=== PATIENT | female | born 1940 | race Caucasian/White ===

== ENCOUNTER 2016-12-21 18:36 | Emergency (ER) | payer MEDICARE, BC ==
[2016-12-21] MEDS ORDERED: NS 0.9% 1000 ML* 1,000 ML IV ONE (19:57)
--- NOTE | 2016-12-21 20:52 | ED ---
Aby Sanderson Erika, scribed for Claude Delarosa MD on 12/21/16 at 2052 . Complex/Multi-Sys Presentation - HPI Summary HPI Summary: Patient is a 76-year-old female presenting to the ED with a CC of weakness. Patient tried to walk up the steps to [place] today, but could not walk all the way to the top due to weakness and increased SOB. Patient was found lying at the top of the stairs, unable to help herself up, and unable to walk once EMS helped her up. Per family, pt has since been lightheaded when she stands up. Pt denies any pain currently. She has a Hx lung CA with lobectomy, and has had chronic SOB since then - pt is on 3L home O2 only at night. Family also notes pt has had abnormal gait since a fall 2 years ago. - History Of Current Complaint Chief Complaint: EDWeakness Time Seen by Provider: 12/21/16 19:52 Hx Obtained From: Patient, Family/Manager Software Development Onset/Duration: Sudden Onset, Lasting Hours, Still Present Timing: Constant Severity Currently: Moderate Aggravating Factor(s): Exertion Associated Signs And Symptoms: Positive: Weakness, SOB, Other - Lightheadedness. Negative: Abdominal Pain, Back Pain - Allergies/Home Medications Allergies/Adverse Reactions: Allergies Allergy/AdvReac Type Severity Reaction Status Date / Time No Known Allergies Allergy Verified 11/25/15 10:53 PMH/Surg Hx/FS Hx/Imm Hx Endocrine/Hematology History: Denies: Hx Diabetes Cardiovascular History: Denies: Hx Hypertension, Hx Pacemaker/ICD Respiratory History: Reports: Other Respiratory Problems/Disorders - lung ca Sensory History: Denies: Hx Hearing Aid Psychiatric History: Denies: Hx Panic Disorder - Cancer History Cancer Type, Location and Year: lung ca Hx Chemotherapy: No Hx Radiation Therapy: No - Surgical History Surgery Procedure, Year, and Place: lobectomy 2004-right per previous report Infectious Disease History: No Infectious Disease History: Denies: Traveled Outside the [place] in Last 30 Days - Family History Known Family History: Positive: Diabetes, Other - Lymphoma - Social History Alcohol Use: None Hx Substance Use: No Substance Use Type: Reports: None Hx Tobacco Use: Yes Smoking Status (MU): Former Smoker Review of Systems Positive: Shortness Of Breath Musculoskeletal: Other - abnormal gait - baseline Negative: Arthralgia, Myalgia Neurological: Other - lightheadedness Positive: Weakness All Other Systems Reviewed And Are Negative: Yes Physical Exam Triage Information Reviewed: Yes Vital Signs On Initial Exam: Initial Vitals Temp Pulse Resp Pulse Ox 99.2 F 82 16 100 12/21/16 19:14 12/21/16 19:14 12/21/16 19:14 12/21/16 19:14 Vital Signs Reviewed: Yes Appearance: Positive: No Pain Distress, Thin Skin: Positive: Warm Head/Face: Positive: Normal Head/Face Inspection Eyes: Positive: MIMI ENT: Positive: Hearing grossly normal Neck: Positive: Supple Respiratory/Lung Sounds: Positive: Clear to Auscultation, Breath Sounds Present Cardiovascular: Positive: Normal, RRR Abdomen Description: Positive: Nontender, No Organomegaly, Soft Bowel Sounds: Positive: Present Musculoskeletal: Positive: Strength/ROM Intact Neurological: Positive: Alert, Oriented to Person Place, Time Psychiatric: Positive: Affect/Mood Appropriate Diagnostics - Vital Signs Vital Signs Temp Pulse Resp BP Pulse Ox 12/21/16 19:19 99.2 F 82 16 119/64 100 12/21/16 19:14 99.2 F 82 16 100 - Laboratory Result Diagrams: 12/21/16 20:46 12/21/16 20:46 Lab Statement: Any lab studies that have been ordered have been reviewed, and results considered in the medical decision making process. - CT CT A/P W/ CT Interpretation: Positive (See Comments) - FINDINGS: The gallbladder is distended and there are small gallstones. The biliary tree is also dilated. I cannot find an obstructing stone or lesion. MCRP is more sensitive for evaluation of obstructing stones or lesions in the biliary tree. There is also slight mural thickening and enhancement of the common bile dict. This can be seen in cholangitis. The liver is normal. Normal spleen. Normal pancreas. Normal adrenal glands. Normal kidneys. Urinary tract in urinary bladder. No bowel obstruction. Sigmoid diverticulosis. No diverticulitis or colitis. Normal appendix. There is a compression fracture of the L2 vertebral body. This was present back in December 2014. CT Interpretation Completed By: Radiologist - IMAGING MATERIAL CONTROLLER - EKG 21:00 Cardiac Rate: NL - at 82 bpm EKG Rhythm: Sinus Rhythm EKG Interpretation: Incomplete RBBB Re-Evaluation - Re-Evaluation First Eval Re-Evaluation Time: 21:40 Comment: Updated patient and family on lab results and need for CT A/P Second Eval Re-Evaluation Time: 01:00 Comment: Discussed CT results with patient and family Complex Multi-Symp Course/Dx Assessment/Plan: A 76 y/o F presents to the ED with a CC of weakness while walking up stairs. EKG shows NSR with an incomplete RBBB. Lab work revealed elevated liver enzymes, so CT A/P W/ was ordered. CT A/P not concerning for acute findings. Results discussed with patient. Family provided with a copy of labs. Patient will be discharged home with follow up from her PCP. - Diagnoses Provider Diagnoses: Weakness Discharge - Discharge Plan Condition: Stable Disposition: HOME Patient Education Materials: Weakness (ED) Referrals: Juan Jose Sutton MD [Primary Care Provider] - 2 Days Additional Instructions: Please follow up with your PCP. The documentation as recorded by the Aby hughes Erika accurately reflects the service I personally performed and the decisions made by me, Claude Delarosa MD.
[2016-12-21 20:58] LABS: Hematocrit 39 % (35-47); Mean Corpuscular HGB Conc 34 g/dl (31-36); Mean Corpuscular Hemoglobin 30 pg (27-31); Mean Corpuscular Volume 89 fL (80-97); Mean Platelet Volume 8 um3 (7.4-10.4); Red Blood Count 4.34 10^6/ul (4.0-5.4); Red Cell Distribution Width 14 % (10.5-15); White Blood Count 11.7 10^3/ul (3.5-10.8)
[2016-12-21 21:07] LABS: Urine Bilirubin Negative (Negative); Urine Glucose Negative (Negative); Urine Nitrite Negative (Negative)
[2016-12-21 21:14] LABS: Albumin 3.7 g/dL (3.2-5.2); BUN/Creatinine Ratio 26.7 (8-20); Calcium 9.2 mg/dL (8.6-10.3); EGFR African American 124.7 (>60); EGFR Non-African American 96.9 (>60); Globulin 3.1 g/dL (2-4); Potassium 3.7 mmol/L (3.5-5.0); Total Bilirubin 2.3 mg/dL (0.2-1.0); Total Protein 6.8 g/dL (6.4-8.9)
[2016-12-21 21:16] LABS: Troponin I 0.03 ng/mL (<0.04)
[2016-12-21 21:51] LABS: TSH (Thyroid Stimulating Horm) 0.65 mcIU/mL (0.34-5.60)
[2016-12-21] MEDS ORDERED: Iohexol 300* (CONTRAST) 10 ML SDV IV ONE (23:20)
[2016-12-22 01:22] VITALS: BP 154/70
--- NOTE | 2016-12-22 07:52 | RAD ---
CLINICAL HISTORY: Pain, elevated LFTs, history of lung cancer COMPARISON: October 26, 2008, CT of the chest dated November 25, 2015 TECHNIQUE: Multiple contiguous axial CT scans were obtained of the abdomen and pelvis after the administration of intravenous contrast. Coronal and sagittal multiplanar reformations are submitted for review. Oral contrast was administered. Delayed images were obtained through the abdomen and pelvis. FINDINGS: LUNG BASES: There is fat-containing Bochdalek hernia on the left LIVER: The liver is normal in shape, size, contour, and attenuation. BILE DUCTS: There is intrahepatic and extrahepatic biliary dilatation. The common duct measures up to 1.3 cm in caliber. This is developed from the previous examination. GALLBLADDER: Small gallstones are noted without pericholecystic inflammatory change. PANCREAS: There is noted above, there is dilatation of the common duct. The pancreatic duct is normal. There is no appreciable pancreatic mass SPLEEN: Normal in size and appearance. UPPER GI TRACT: Evaluation of the gastrointestinal tract is limited by incomplete gastric distention. The upper GI tract is unremarkable. SMALL BOWEL AND MESENTERY: There is mild distention of the small bowel loops without dilatation. Oral contrast reaches the colon. COLON: There are multiple diverticula of the sigmoid colon. There is no pericolonic inflammatory change. ADRENALS: There is a 0.7 cm nodule of the right adrenal gland. This can be identified in retrospect on the 2008 examination and is stable, consistent with a benign process KIDNEYS: The kidneys are normal in shape, size, contour, and axis. There is no hydronephrosis or nephrolithiasis. BLADDER: The bladder is smooth in contour. PELVIC ORGANS: The uterus and adnexa are grossly normal for technique. AORTA: There is calcific atherosclerotic disease of the abdominal aorta and its branches, without aneurysmal dilatation IVC: Unremarkable LYMPH NODES: There is no lymphadenopathy by size criteria. ABDOMINAL WALL: There are small fat-containing inguinal hernias bilaterally. BONES AND SOFT TISSUES: There is a scoliotic curvature of the spine. There is diffuse osteopenia. There is a compression deformity of L2 with minimal osseous retropulsion. This can be identified on the December 13, 2015 examination and is stable OTHER: None IMPRESSION: 1. INTRAHEPATIC AND EXTRAHEPATIC BILIARY DILATATION. RECOMMEND CONSIDERATION OF DEDICATED IMAGING OF THE BILIARY SYSTEM. 2. SMALL GALLSTONES. 3. DIVERTICULOSIS.
== END 2016-12-22 01:19 | disposition home or self-care (01) ==
LOC: ED 18:36
DX: R53.1 Weakness (principal); R42 Dizziness and giddiness; R06.02 Shortness of breath; Z87.891 Personal history of nicotine dependence
CPT/HCPCS: 36415; 74177; 80053; 81003; 83605; 83735; 83880; 84443; 84484; 85025; 93005; 99282; Q9967

== ENCOUNTER 2018-06-01 08:08 | Emergency (ER) | payer MEDICARE, BC ==
--- NOTE | 2018-06-01 08:52 | ED ---
Lower Extremity - HPI Summary HPI Summary: Patient is a 78-year-old female who presents emergency department for left upper leg pain 3 days. Patient lives at home with her . She reportedly has a history of dementia that is recently started and is being tested for Alzheimer's. Patient recently started Zoloft. She otherwise has no past medical history and is not anticoagulated. Patient states she was in the living room 3 days ago when she last her balance and fell injuring her left upper leg. Patient denies head injury or loss of consciousness. She denies headache, neck pain, chest pain, shortness of breath, abdominal pain, recent illness, vomiting, diarrhea. Patient does have a walker at home but typically ambulates by herself. Patient has been able to walk with pain to left upper leg. She denies numbness ,tingling or weakness. Symptoms are [id number]-soxpeopv in severity. Walking makes symptoms worse. Rest makes symptoms better. Patient states she took 2 Tylenol this morning and her symptoms her pain is improving. - History of Current Complaint Chief Complaint: EDExtremityLower Stated Complaint: UNABLE TO AMB WEAKNESS LF LEG Time Seen by Provider: 06/01/18 08:18 Hx Obtained From: Patient Pain Intensity: 0 - Allergies/Home Medications Allergies/Adverse Reactions: Allergies Allergy/AdvReac Type Severity Reaction Status Date / Time No Known Allergies Allergy Verified 06/01/18 08:32 Home Medications: Home Medications Sertraline* [Zoloft*] 25 mg PO DAILY 06/01/18 [History Confirmed 06/01/18] PMH/Surg Hx/FS Hx/Imm Hx Previously Healthy: Yes Endocrine/Hematology History: Denies: Hx Diabetes Cardiovascular History: Denies: Hx Hypertension, Hx Pacemaker/ICD Respiratory History: Reports: Other Respiratory Problems/Disorders - lung ca History: Denies: Hx Renal Disease Sensory History: Denies: Hx Hearing Aid Psychiatric History: Denies: Hx Panic Disorder - Cancer History Cancer Type, Location and Year: lung ca Hx Chemotherapy: No Hx Radiation Therapy: No - Surgical History Surgery Procedure, Year, and Place: lobectomy 2004-right per previous report - Immunization History Immunizations Up to Date: Yes Infectious Disease History: No Infectious Disease History: Denies: Traveled Outside the US in Last 30 Days - Family History Known Family History: Positive: Diabetes, Other - Lymphoma - Social History Occupation: Retired Lives: With Family Alcohol Use: Occasionally Hx Substance Use: No Substance Use Type: Reports: None Hx Tobacco Use: Yes Smoking Status (MU): Former Smoker Review of Systems Constitutional: Negative Negative: Fever, Chills Eyes: Negative ENT: Negative Cardiovascular: Negative Negative: Palpitations, Chest Pain Respiratory: Negative Negative: Shortness Of Breath, Cough Gastrointestinal: Negative Negative: Abdominal Pain, Vomiting, Diarrhea Genitourinary: Negative Positive: Other - left leg pain Skin: Negative Neurological: Negative Negative: Headache, Weakness, Paresthesia, Numbness All Other Systems Reviewed And Are Negative: Yes Physical Exam Triage Information Reviewed: Yes Vital Signs On Initial Exam: Initial Vitals Temp Pulse Resp BP Pulse Ox 97.6 F 86 18 120/75 96 06/01/18 08:25 06/01/18 08:25 06/01/18 08:25 06/01/18 08:25 06/01/18 08:25 Vital Signs Reviewed: Yes Appearance: Positive: Well-Appearing - Pt. sitting up in bed in NAD. Pleasant. Answers questions appropriately. Skin: Positive: Warm, Dry Head/Face: Positive: Other - Ecchymosis noted to left temporal area. No facial tenderness. Eyes: Positive: Normal, EOMI, MIMI Neck: Positive: Supple, Nontender Respiratory/Lung Sounds: Positive: Clear to Auscultation, Breath Sounds Present Cardiovascular: Positive: Normal, RRR Abdomen Description: Positive: Nontender, Soft Musculoskeletal: Positive: Other - No midline tenderness to spine. Pain on palpation just above right knee. Healing bruising and mild edema noted to medial aspect of right knee. 5/5 strength in bilateral LEs with good pulses. No sensory deficits. No hip pain with rotation. Neurological: Positive: Normal, Sensory/Motor Intact, Alert, Oriented to Person Place, Time, CN Intact II-III, Facial Symmetry, Speech Normal Psychiatric: Positive: Affect/Mood Appropriate - Deo Coma Scale Best Eye Response: 4 - Spontaneous Best Motor Response: 6 - Obeys Commands Best Verbal Response: 5 - Oriented Coma Scale Total: 15 Diagnostics - Vital Signs Vital Signs Temp Pulse Resp BP Pulse Ox 06/01/18 08:25 97.6 F 96 20 120/75 95 - Laboratory Result Diagrams: 06/01/18 09:27 06/01/18 09:27 Lab Statement: Any lab studies that have been ordered have been reviewed, and results considered in the medical decision making process. Lower Extremity Course/Dx - Course Course Of Treatment: Patient presenting for left upper leg pain after a mechanical fall 3 days ago. She denies head injury but she has healing bruising to the left side of her face. Basic labs and imaging ordered. Blood work is unremarkable. CT scan of the brain is negative for acute findings, reading per radiology. Chest and pelvic x-ray negative. Knee x-ray shows a nondisplaced proximal fibular fracture. Patient resides at home with her and is ambulatory with or without a walker. Discussed fracture with Dr. Coffey, orthopedics, in regards to splinting. Alexx reviewed x-ray. She states that patient does not need to be in a splint and can be weightbearing with walker. Results and plan discussed with patient and her . Blood work unremarkable. Patient is very happy to be going home without splinting. Scheduled palpation appointment for the orthopedic clinic on Wednesday at 3:30. Advised ice and elevate. Continue Tylenol for pain as directed. To return to the ER if symptoms change or worsen. Patient has been understand and agree with plan. - Diagnoses Differential Diagnosis/HQI/PQRI: Positive: Bursitis, Dislocation, Fracture ( Closed), Sprain, Strain Provider Diagnoses: Fall, Leg pain Discharge - Sign-Out/Discharge Documenting (check all that apply): Patient Departure - Discharge Plan Condition: Good Disposition: HOME Patient Education Materials: Leg Fracture (ED) Referrals: Juan Jose Sutton MD [Primary Care Provider] - Daja Coffey MD [Medical Doctor] - Additional Instructions: Dr. Coffey will see you in the orthopedic clinic 06/03/18, at 3:30pm Ice and elevate Use walker Tylenol for pain as directed Return to ER if symptoms change or worsen - Billing Disposition and Condition Condition: GOOD Disposition: Home
[2018-06-01 09:37] LABS: ABS Basophils 0 10^3/ul (0-0.2); ABS Eosinophils 0 10^3/ul (0-0.6); ABS Lymphocytes 0.4 10^3/ul (1.0-4.8); ABS Monocytes 0.6 10^3/ul (0-0.8); ABS Neutrophils 5.6 10^3/ul (1.5-7.7); ABS Nucleated RBC 0 10^3/ul; Eosinophil % 0.6 % (0-6); Hematocrit 43 % (35-47); Hemoglobin 14.3 g/dl (12.0-16.0); Lymphocyte % 6.3 % (25-47); Mean Corpuscular HGB Conc 33 g/dl (31-36); Mean Corpuscular Hemoglobin 31 pg (27-31); Mean Corpuscular Volume 92 fL (80-97); Mean Platelet Volume 7.9 fL (7.4-10.4); Nucleated Red Blood Cells % 0; Platelet Count 301 10^3/ul (150-450); Red Blood Count 4.67 10^6/ul (4.00-5.40); Red Cell Distribution Width 14 % (10.5-15); White Blood Count 6.7 10^3/ul (3.5-10.8)
[2018-06-01 09:57] LABS: EGFR Non-African American 98.3 (>60)
[2018-06-01 11:24] VITALS: BP 111/77
== END 2018-06-01 11:23 | disposition home or self-care (01) ==
LOC: ED 08:08
DX: S82.402A Unspecified fracture of shaft of left fibula, initial encounter for closed fracture (principal); W18.30XA Fall on same level, unspecified, initial encounter; Y93.01 Activity, walking, marching and hiking; Y92.008 Other place in unspecified non-institutional (private) residence as the place of occurrence of the external cause; M25.462 Effusion, left knee; M17.12 Unilateral primary osteoarthritis, left knee; Z85.118 Personal history of other malignant neoplasm of bronchus and lung; Z87.891 Personal history of nicotine dependence
CPT/HCPCS: 36415; 70450; 80053; 85025; 99283

== ENCOUNTER 2018-06-20 17:58 | Inpatient (IN) | payer MEDICARE, BC ==
--- OUTSIDE RECORDS SUMMARY | 2018-06-20 18:08 | XMS REPORT ---
:1940 External Reference #:[id number] Author Organization [email or web address] Address [address] [place] [address] [place] [address] Phone [phone] Care Team Providers Name Role Phone Juan Jose Sutton MD Primary Care Physician Unavailable Payers Type Date Identification Numbers Payment Provider Subscriber Medicare Primary Effective: Policy Number: Medicare Sharon Wooten 2004 [id number] PayID: [id number] [address] [place] [address] Medigap Part B Effective: 2008 Policy Number: [facility] Bolivar Wooten [id number] Group Number: [id number] [address] PayID: [id number] [place] [address] Problems Date Description Provider Status Onset: 01/21/2015 Closed fracture of lumbar vertebra Tal Ruby M.D. Active without spinal cord injury Family History Date Family Member(s) Problem(s) Comments General Diabetes Social History Type Date Description Comments Lives With Occupation Retired Occupation [place] ETOH Use Occasionally consumes alcohol Smoking Patient is a former smoker Recreational Drug Use Denies Drug Use Exercise Type/Frequency Does not exercise Allergies, Adverse Reactions, Alerts Date Description Reaction Status Severity Comments 01/21/2015 NKDA active Medications Medication Date Status Form Strength Qnty SIG Indications Ordering Provider Naproxen Active Tablets 375mg 1 by mouth Unknown 00 two times a day as needed Tylenol Extra Active Tablets 500mg 2 by mouth Unknown Strength 00 as needed Hydrocodone-Ac Hx Tablets 5-325mg Midura, etaminophen Elizabeth Ingram MD 01/22/20 15 Medications Administered in Office Medication Date Status Form Strength Qnty SIG Indications Ordering Provider Depomedrol Administered Injection Beatriz 40MG 018 INDER Pete Vital Signs Date Vital Result Comment 06/03/2018 Height 62 inches 5'2" Weight 117.00 lb Heart Rate 62 /min BP Systolic 102 mmHg BP Diastolic 60 mmHg Respiratory Rate 16 /min Pain Level 3 BMI (Body Mass Index) 21.4 kg/m2 01/28/2015 Height 62 inches 5'2" Weight 110.00 lb Heart Rate 69 /min BP Systolic 103 mmHg BP Diastolic 79 mmHg BMI (Body Mass Index) 20.1 kg/m2 01/21/2015 Height 62 inches 5'2" Weight 105.00 lb Heart Rate 72 /min BP Systolic Sitting 120 mmHg BP Diastolic Sitting 78 mmHg Pain Level 2 L leg BMI (Body Mass Index) 19.2 kg/m2 Results Description No Information Procedures Date CPT Code Description Status 06/03/2018 19956 Inject/Drain Joint/Bursa Major W/O US Completed Encounters Type Date Location Provider CPT E/M Dx Office Visit 01/28/2015 9:00a [facility] M.D. 79522 808.8 [facility] 905.1 805.6 733.13 V54.19 Office Visit 01/21/2015 3:30p [facility] Tal Ruby M.D. 35577 805.4 Of [facility] Office Visit 02/25/2009 12:15a [facility], Anne-Marie [place], [address]88 239.1 Hospitalists MJoe Office Visit 02/24/2009 12:30a [facility],panfilo [place], 20942 239.1 Hospitalists MJoe Office Visit 02/23/2009 12:45a [facility],panfilo [place], 53203 239.1 Hospitalists MJoe Office Visit 02/22/2009 12:45a [facility],panfilo [place], 99342 239.1 Hospitalists Cyn Plan of Care Future Appointment(s):06/20/2018 3:30 pm - Daja Coffey M.D. at [facility]09/26/2018 10:15 am - Sina Syed M.D. at [facility]06/03/2018 - Daja Coffey M.D.M17.12 Unilateral primary osteoarthritis, left kneeFollow up:2 yvxlyU69.12 Unilateral primary osteoarthritis, left hipS82.402A Unsp fracture of shaft of left fibula, init for clos fx
--- OUTSIDE RECORDS SUMMARY | 2018-06-20 18:08 | XMS REPORT | Continuity of Care Document ---
:1940 External Reference #:[id number] Author Name Nixon Parsons Care Team Providers Name Role Phone Juan Jose Sutton MD Primary Care Physician Unavailable Payers Type Date Identification Numbers Payment Provider Subscriber Effective: Policy Number: [id number] Medicare Sharon Wooten 2005 PayID: [id number] [address] [place] [address] Effective: 2008 Policy Number: [id number] [facility] Bolivar Wooten Group Number: [id number] [address] PayID: [id number] [place] [address] Advance Directives Description No Information Available Problems Date Description Provider Status Onset: 01/21/2015 Closed fracture of lumbar vertebra Tal Ruby M.D. Active without spinal cord injury Family History Date Family Member(s) Problem(s) Comments General Diabetes Social History Type Date Description Comments Sex Unknown Lives With Occupation Retired Occupation [employer] ETOH Use Occasionally consumes alcohol Tobacco Use Start: Unknown End: Patient is a former smoker Unknown Recreational Drug Use Denies Drug Use Smoking Status Reviewed: 06/20/18 Patient is a former smoker Exercise Type/Frequency Does not exercise Allergies, Adverse Reactions, Alerts Description No Known Drug Allergies Medications Medication Date Status Form Strength Qnty SIG Indications Ordering Provider Naproxen Active Tablets 375mg 1 by mouth Unknown 00 two times a day as needed Tylenol Extra Active Tablets 500mg 2 by mouth Unknown Strength 00 as needed Hydrocodone-Ac Hx Tablets 5-325mg Lesley etaminophen Elizabeth - MD Juan Jose 01/22/20 15 Medications Administered in Office Medication Date Status Form Strength Qnty SIG Indications Ordering Provider Depomedrol Administered Injection Beatriz 40MG 018 INDER Pete Immunizations Description No Information Available Vital Signs Date Vital Result Comment 06/20/2018 4:13pm Height 62 inches 5'2" Weight 110.00 lb Heart Rate 84 /min BP Systolic 108 mmHg BP Diastolic 64 mmHg BMI (Body Mass Index) 20.1 kg/m2 06/03/2018 3:54pm Height 62 inches 5'2" Weight 117.00 lb Heart Rate 62 /min BP Systolic 102 mmHg BP Diastolic 60 mmHg Respiratory Rate 16 /min Pain Level 3 BMI (Body Mass Index) 21.4 kg/m2 01/28/2015 9:18am Height 62 inches 5'2" Weight 110.00 lb Heart Rate 69 /min BP Systolic 103 mmHg BP Diastolic 79 mmHg BMI (Body Mass Index) 20.1 kg/m2 01/21/2015 3:25pm Height 62 inches 5'2" Weight 105.00 lb Heart Rate 72 /min BP Systolic Sitting 120 mmHg BP Diastolic Sitting 78 mmHg Pain Level 2 L leg BMI (Body Mass Index) 19.2 kg/m2 Results Description No Information Available Procedures Date Code Description Status 06/03/2018 13020 Inject/Drain Joint/Bursa Major W/O US Completed Encounters Type Date Location Provider Dx Diagnosis Office Visit 01/28/2015 [facility] Harris M.D. 808.8 FX Pelvis Closed 9:00a Of [facility] Unspec 905.1 FX Spine & Trunk W/O Spinal Cord Lesion Late Effect 805.6 FX Sacrum & Coccyx Closed W/O Spinal Cord Injury 733.13 FX Pathologic Vertebrae V54.19 Aftercare For Healing Traumatic Fracture Of Other Bone Office Visit 01/21/2015 Neurosurgery Tla Ruby, 805.4 FX Lumbar Closed 3:30p Services [facility] Gloria Addison W/O Spinal Cord Injury Office Visit 02/25/2009 [facility], 239.1 Neoplasm 12:15a panfilo Lew M.D. Unspecified Hospitalists Respiratory System Office Visit 02/24/2009 [facility], 239.1 Neoplasm 12:30a panfilo Lew M.D. Unspecified Hospitalists Respiratory System Office Visit 02/23/2009 [facility], 239.1 Neoplasm 12:45a panfilo Lew M.D. Unspecified Hospitalists Respiratory System Office Visit 02/22/2009 [facility], 239.1 Neoplasm 12:45a panfilo Lew M.D. Unspecified Hospitalists Respiratory System Plan of Treatment Future Appointment(s):09/26/2018 10:15 am - Sina Syed M.D. at [facility]
--- NOTE | 2018-06-20 18:25 | ED ---
Lower Extremity - HPI Summary HPI Summary: Pt is a 78 y/o female who presents to the ED c/o left leg pain. She fell and injured her left hip. The XR was initially read as normal. Pt was given a left knee injection by Dr. Coffey, which alleviated the pain. She has been doing physical therapy for the past 2 weeks, and she has been deteriorating as per son. Pt had an appointment with Dr. Coffey today for another injection. Dr. Coffey did repeat xrays and is concerned for left femoral neck fracture, and with pt's inability to ambulate without pain, and her worsening pain. She was sent to the ED by Dr. Coffey for a CT to rule out a hip fracture, and possible admission. Pt has 4-5/10 pain with ambulation. She denies any CP, SOB, COOK, dizziness, fever, or abdominal pain. Pt denies any new fall. - History of Current Complaint Chief Complaint: EDExtremityLower Stated Complaint: LT LEG AND HI PAIN Time Seen by Provider: 06/20/18 18:03 Hx Obtained From: Patient, Family/Radio News Writer - Son, Other: - Dr. Coffey Mechanism Of Injury: Fall From A Standing Position - on 06/01/18, no new fall. Onset of Pain: Immediate Onset/Duration: Still Present - 3 weeks ago Severity Initially: Moderate Severity Currently: Moderate Pain Intensity: 4 Pain Scale Used: 0-10 Numeric Timing: Constant Location: Is Discrete @ - LLE Character Of Pain: Aching Associated Signs And Symptoms: Negative: Fever, Dizziness, Abdominal Pain Aggravating Factor(s): Standing, Ambulation, Weight Bearing Alleviating Factor(s): Nothing Able to Bear Weight: No - not without significant pain, worsening since 06/01/18 - Allergies/Home Medications Allergies/Adverse Reactions: Allergies Allergy/AdvReac Type Severity Reaction Status Date / Time No Known Allergies Allergy Verified 06/01/18 08:32 PMH/Surg Hx/FS Hx/Imm Hx Previously Healthy: No Endocrine/Hematology History: Denies: Hx Diabetes, Hx Thyroid Disease Cardiovascular History: Denies: Hx Hypertension, Hx Pacemaker/ICD Respiratory History: Reports: Hx Lung Cancer History: Denies: Hx Renal Disease Sensory History: Denies: Hx Hearing Aid Psychiatric History: Denies: Hx Panic Disorder - Cancer History Cancer Type, Location and Year: lung ca Hx Chemotherapy: No Hx Radiation Therapy: No - Surgical History Surgery Procedure, Year, and Place: lobectomy 2004-right [facility] Infectious Disease History: No Infectious Disease History: Denies: Traveled Outside the [place] in Last 30 Days - Family History Known Family History: Positive: Diabetes, Other - Lymphoma - Social History Lives: With Family Alcohol Use: Occasionally Hx Substance Use: No Substance Use Type: Reports: None Hx Tobacco Use: Yes Smoking Status (MU): Former Smoker Review of Systems Negative: Fever Negative: Chest Pain Negative: Shortness Of Breath Negative: Abdominal Pain Positive: no symptoms reported Positive: Arthralgia - LLE pain from left knee to left hip, Myalgia - LLE pain Skin: Negative Neurological: Other - NEGATIVE: dizziness Negative: Headache Psychological: Normal All Other Systems Reviewed And Are Negative: Yes Physical Exam - Summary Physical Exam Summary: Appearance: Well-appearing, moderate pain distress, well-nourished Skin: Warm, color reflects adequate perfusion, dry, no bruising noted at left hip or knee Head: Normal Head/Face inspection, atraumatic Eyes: Conjunctiva clear ENT: Normal inspection Neck: Supple, no nodes, no JVD Respiratory: Lungs clear, normal breath sounds, no respiratory distress Cardio: RRR, No murmur, pulses normal, brisk capillary refill Abdomen: Soft, nontender Bowel sounds: Present Musculoskeletal: no calf tenderness, no edema, tenderness to palpation of lateral left hip, no bruising, able to lift left leg off stretcher and bend left knee Psychological: Normal Neuro: Alert, muscle tone normal, no focal deficit Triage Information Reviewed: Yes Vital Signs On Initial Exam: Initial Vitals Temp Pulse Resp BP Pulse Ox 99.9 F 95 16 108/80 93 06/20/18 18:00 06/20/18 18:00 06/20/18 18:00 06/20/18 18:00 06/20/18 18:00 Vital Signs Reviewed: Yes Diagnostics - Vital Signs Vital Signs Temp Pulse Resp BP Pulse Ox 06/20/18 18:00 99.9 F 95 16 108/80 93 - Laboratory Result Diagrams: 06/20/18 18:33 06/20/18 18:33 Lab Statement: Any lab studies that have been ordered have been reviewed, and results considered in the medical decision making process. - CT pelvis CT Interpretation Completed By: ED Physician Summary of CT Findings: left femoral neck fracture - EKG 18:23 Cardiac Rate: NL - 84 bpm EKG Rhythm: Sinus Rhythm ST Segment: Normal Ectopy: None Summary of EKG Findings: An EKG at 18:23 reveals nml AV/IV CT, nml QTc, and nml axis. Re-Evaluation - Re-Evaluation First Eval Re-Evaluation Time: 19:08 Change: Unchanged Comment: Pt advised of unofficial CT reading of left femoral neck fracture. Pt denies pain when lying on stretcher. Declines pain medication. Son and not in room at time that pt is informed of unofficial CT reading. Pt agrees to admission. Lower Extremity Course/Dx - Course Course Of Treatment: Pt is a 78 y/o female who presents to the ED c/o left leg pain. She fell 06/01/18 and injured her left hip. The XR was initially read as normal. She has been doing physical therapy for the past 2 weeks, and she has been deteriorating as per son. Pt had an appointment with Dr. Coffey today for another injection. She was sent here by Dr. Coffey for a CT to rule out a hip fracture, and possible admission. She denies any CP, SOB, COOK, dizziness, fever, or abdominal pain. Pt denies any new fall. A physical exam revealed tenderness to palpation of lateral left hip, no bruising under skin, able to lift left leg off stretcher and bend left knee. An EKG was normal. Labs are unremarkable except for minimally elevated BNP (113) and minimally elevated alk phos (121). Final dx are left hip pain and inability to ambulate due to left hip, left femoral neck fracture. CXR unofficial read by ED MD is NAD. CT left hip and pelvis unofficial read is left femoral neck fracture. Pt will be admitted to hospitalist for medical management, and further care by Dr. Coffey. - Diagnoses Differential Diagnosis/HQI/PQRI: Positive: Contusion, Fracture (Closed), Sprain , Strain Provider Diagnoses: Left hip pain, Inability to ambulate due to left hip, Fracture of femoral neck , left - Physician Notifications Discussed Care Of Patient With: Asia Quintanilla - admit Time Discussed With Above Provider: 19:20 Instructed by Provider To: Admit As Inpatient Discharge - Sign-Out/Discharge Documenting (check all that apply): Patient Departure - admit - Discharge Plan Condition: Stable Disposition: ADMITTED TO [facility] - Billing Disposition and Condition Condition: STABLE Disposition: Admitted to [facility] - Attestation Statements Document Initiated by Neel: Yes Documenting Scribe: Neida Weston Provider For Whom Neel is Documenting (Include Credential): Melonie Hogue MD Scribe Attestation: Neida Sanderson, scribed for Melonie Hogue MD on 06/20/18 at 2129. Scribe Documentation Reviewed: Yes Provider Attestation: The documentation as recorded by the Neida hughes accurately reflects the service I personally performed and the decisions made by me, Melonie Hogue MD
[2018-06-20 18:41] LABS: ABS Basophils 0 10^3/ul (0-0.2); ABS Eosinophils 0.1 10^3/ul (0-0.6); ABS Lymphocytes 0.6 10^3/ul (1.0-4.8); ABS Monocytes 0.6 10^3/ul (0-0.8); ABS Neutrophils 4.7 10^3/ul (1.5-7.7); ABS Nucleated RBC 0 10^3/ul; Eosinophil % 2.3 %; Hematocrit 42 % (35-47); Hemoglobin 14.2 g/dl (12.0-16.0); Lymphocyte % 10.4 %; Mean Corpuscular HGB Conc 34 g/dl (31-36); Mean Corpuscular Hemoglobin 31 pg (27-31); Mean Corpuscular Volume 91 fL (80-97); Nucleated Red Blood Cells % 0; Platelet Count 287 10^3/ul (150-450); Red Blood Count 4.64 10^6/ul (4.00-5.40); Red Cell Distribution Width 13 % (10.5-15); White Blood Count 6.1 10^3/ul (3.5-10.8)
[2018-06-20 18:50] LABS: INR 1.02 (0.77-1.02)
[2018-06-20 18:59] LABS: EGFR Non-African American 96.4 (>60)
--- NOTE | 2018-06-20 19:07 | ED ---
Progress - Progress Note Progress Note: RECEIVED SIGN-OUT FROM DR. RUDOLPH AT [facility] PENDING [facility]AGING Course/Dx - Course Course Of Treatment: Pt is a 78 y/o female who presents to the ED c/o left leg pain. She fell 06/01/18 and injured her left hip. The XR was initially read as normal. She has been doing physical therapy for the past 2 weeks, and she has been deteriorating as per son. Pt had an appointment with Dr. Coffey today for another injection. She was sent here by Dr. Coffey for a CT to rule out a hip fracture, and possible admission. She denies any CP, SOB, COOK, dizziness, fever, or abdominal pain. Pt denies any new fall. A physical exam revealed tenderness to palpation of lateral left hip, no bruising under skin, able to lift left leg off stretcher and bend left knee. An EKG was normal. Final dx are left hip pain and inability to ambulate due to left hip. Pt will be signed out to Dr. Frye pending CXR and CT pelvis. - Diagnoses Provider Diagnoses: Left hip pain, Inability to ambulate due to left hip Discharge - Discharge Plan Referrals: Juan Jose Sutton MD [Primary Care Provider] - - Attestation Statements Document Initiated by Scribe: Yes Documenting Scribe: Malgorzata Luu Provider For Whom Scribe is Documenting (Include Credential): Dr. Bossman Frye MD Scribe Attestation: Kin, Malgorzata Luu, scribed for Dr. Bossman Frye MD on 06/20/18 at 1907.
[2018-06-20] MEDS ORDERED: Ondansetron INJ* 2 MG/ML VIAL IV PRN (20:12)
[2018-06-20] MEDS ORDERED: HYDROcodone/ACETAMIN 5-325 MG* 1 TAB PO PRN (20:12)
[2018-06-20] MEDS ORDERED: Albuterol 2.5 MG/3 ML NEB.SOL* (0.083%) INH PRN (20:16)
[2018-06-20 22:43] LABS: Urine Appearance Cloudy; Urine Blood Negative (Negative); Urine Color Yellow; Urine Ketones Trace (Negative); Urine Protein Negative (Negative); Urine Red Blood Cell Absent (Absent); Urine Specific Gravity 1.016 (1.010-1.030); Urine Urobilinogen Negative (Negative); Urine White Blood Cell 2+(11-20/hpf) (Absent)
[2018-06-20] MEDS: Heparin VIAL(*) 5000 UNITS/ML VIAL (FIVE THOUSAND) SUBCUT SCH (23:38)
--- NOTE | 2018-06-21 00:28 | HP ---
CC: Dr. Sutton; Dr. Coffey * HISTORY AND PHYSICAL: DATE OF ADMISSION: 06/20/18 PRIMARY CARE PROVIDER: Dr. Sutton. MY ATTENDING PHYSICIAN WHILE IN THE HOSPITAL: Asia Quintanilla MD * (report dictated by Wilber Foster NP) CONSULTING ORTHOPEDIST: Dr. Coffey. CHIEF COMPLAINT: 1. Left hip pain. 2. Decreased mobility. HISTORY OF PRESENT ILLNESS: Mrs. Wooten is a 78-year-old female patient who a few weeks ago sustained a mechanical fall in her bathroom. She was evaluated, was doing physical therapy, but they have noticed that over the last several days that she has had a progressive decline in her PT ability and was transferred. She had been having more pain in her hip. She presented to the orthopedic services for evaluation and a CT was obtained today, which did show a left trochanteric fracture. The patient denies having any chest pain or shortness of breath. She states she really does not have a lot of pain in her hip. She just states she has been having decreased limited range of motion and decreased ability to transfer due to pain. She denies having any recent fevers or chills. There has been no abdominal pain. There has been no nausea or vomiting. She denied having any recent dysurias or frequencies. She states that she just again noted that she had been having decreased mobility. She again denied any chest pain or shortness of breath. She states that prior to the fall, she was able to ambulate, to go up and down the stairs with laundry basket with no chest pain. She did get short of breath with this, but she recovered after getting to the top of the stairs. She states that typically she used to go the [employer] 2 or 3 times a week and walk around the store, not get chest pain with this. She states that prior to when she fell 3 weeks ago, she did not faint. It has been so long, she cannot really remember, but she remembers that she lost her balance and had fell mechanically. She did not have any chest pain prior to or after. She was evaluated here today in the ED. It was noted that she had a left trochanteric fracture and because of these findings, we were asked to evaluate for admission. PAST MEDICAL HISTORY: Significant for: 1. Depression. 2. COPD. 3. Lung cancer. PAST SURGICAL HISTORY: She has had lobectomy. HOME MEDICATIONS: Include Zoloft 1 tablet p.o. daily. ALLERGIES TO MEDICATIONS: Include no known drug allergies. FAMILY HISTORY: Both her parent had cancer, her father had lung cancer and her mother had lymphoma. SOCIAL HISTORY: She is a former smoker. She does drink at times 1 to 2 drinks a day, but she has not drink in 3 weeks. Surrogate decision makers are her and her son. REVIEW OF SYSTEMS: There is no documented fever. She denied having any significant weight change. There is no double vision. She denies having any ear discharge. There was no rhinorrhea. There was no sore throat. There was no thyroid enlargement. She denied having any chest pain. There was no orthopnea. There is no nocturnal dyspnea. No nausea, no vomiting. No abdominal pain. No dysuria, no frequency. No seizure, no loss of consciousness. No pruritus and no skin ulcerations. Review of 14 systems completed, all others negative. PHYSICAL EXAMINATION GENERAL: At this time, Mrs. Wooten is a 78-year-old female patient. She is sitting in the ED stretcher. She does not appear to be in any acute distress. She appears to be well nourished and well developed. VITAL SIGNS: Blood pressure 108/80 with a pulse of 95, respirations 16, O2 saturation 93%, temperature 99.9. HEENT: Head: Atraumatic and normocephalic. Eyes: EOMs are intact. Sclerae anicteric, not pale. Throat: Oral mucosa appears to be moist. No oropharyngeal erythema. NECK: Supple. LUNGS: Clear to auscultation bilaterally. No wheezes, rales, rhonchi. HEART: Sounds S1, S2. She had a regular rate and rhythm. No murmurs, rubs, or gallops. ABDOMEN: Soft, flat, nontender. Bowel sounds were present. EXTREMITIES: Pulses were 2+ throughout. Neurovascular checks were intact to the left lower extremity. To me, it did appear to be slightly rotated and shortened, but again neurovascular, she was intact. NEUROLOGIC: She is awake, alert and oriented x3. She had no gross focal deficits. Speech clear. Tongue midline. SKIN: Intact. DIAGNOSTIC STUDIES/LAB DATA: Labs, WBC of 6.1, RBC of 4.64, hemoglobin of 14.2 , hematocrit of 42, platelet count of 287. INR 1.02, PTT of 27.6. The sodium was 140, potassium was 3.8, chloride of 104, bicarb 28, BUN 17, creatinine of 0.60, glucose 100. Calcium 9.8. Total bili 0.6, AST 22, ALT 19, alk phos 122. Albumin of 4.1. She did have imaging here in the ED. Chest x-ray, again awaiting on official read, but when I reviewed this, I do not appreciate any acute infiltrates. It does appear that she is status post lobectomy. She has hyperinflation findings. It looks like this was consistent with COPD. No infiltrates or pulmonary edema is noted. She had an EKG obtained today, which did reveal a normal sinus rhythm with a rate of 84, no ST elevations or T wave inversions. When reviewed to previous EKG, it appears to be appears to be similar. She had a pelvis CT obtained today, impression: Acute traumatic fracture of the left femoral neck, diverticulosis. Old medical records were reviewed. ASSESSMENT AND PLAN: Mrs. Wooten is a 78-year-old female patient coming into the ED after sustaining a mechanical fall 3 weeks ago, now noticing decreased mobility. On evaluation with CT today, it was noted that she had a left hip fracture. She will be admitted under inpatient status for: 1. Left hip fracture. At this point, she is medically optimized for the procedure. Her RCRI is low. She has no risk factors. Her biggest risk is really respiratory mcmanus because of the history of lung cancer and chronic obstructive pulmonary disease, but she is very active prior to this. EKG is stable. Chest x- ray appears to be stable. She is medically optimized. Plan will be to make her n.p.o. after 8 o'clock in the morning and she would be add- on case for Dr. Coffey tomorrow. I will order IV fluids when she is n.p.o. and I have ordered pain management for the patient, neurovascular checks and Dr. Coffey will evaluate. 2. History of lung cancer. Follow up with PCP. 3. Depression. Continue supportive care. 4. History of chronic obstructive pulmonary disease. I did order p.r.n. albuterol for her. 5. DVT prophylaxis. She is high risk. She will be placed on heparin subcu. 6. Code status. She is a full code. 7. Fluids, electrolytes, and nutrition. Again, n.p.o. after 8 o'clock tomorrow morning and then she could have normal saline while she is n.p.o. TIME SPENT: Time spent on the admission was 60 minutes, greater than half the time spent [id number] with the patient obtaining my history and physical; other half time spent going over the plan of care with the patient and implementing plan of care. I did discuss the plan of care with my attending, Dr. Quintanilla; she is in agreement. WILBER FOSTER, APARTMENT MAINTENANCE [id number]/[facility] #: [id number] RUIZ
[2018-06-21] MEDS: NS 0.9% 1000 ML* 1,000 ML IV SCH ×2 (03:54→13:49)
[2018-06-21 05:42] LABS: ABS Basophils 0.1 10^3/ul (0-0.2); ABS Eosinophils 0.2 10^3/ul (0-0.6); ABS Lymphocytes 0.5 10^3/ul (1.0-4.8); ABS Monocytes 0.5 10^3/ul (0-0.8); ABS Neutrophils 3.5 10^3/ul (1.5-7.7); ABS Nucleated RBC 0 10^3/ul; Eosinophil % 3.2 %; Hematocrit 39 % (35-47); Lymphocyte % 10.8 %; Mean Corpuscular HGB Conc 34 g/dl (31-36); Mean Corpuscular Hemoglobin 30 pg (27-31); Mean Corpuscular Volume 90 fL (80-97); Mean Platelet Volume 7.7 fL (7.4-10.4); Nucleated Red Blood Cells % 0.1; Platelet Count 271 10^3/ul (150-450); Red Blood Count 4.31 10^6/ul (4.00-5.40); Red Cell Distribution Width 13 % (10.5-15); White Blood Count 4.7 10^3/ul (3.5-10.8)
[2018-06-21 05:52] LABS: INR 1.07 (0.77-1.02)
[2018-06-21] MEDS: Heparin VIAL(*) 5000 UNITS/ML VIAL (FIVE THOUSAND) SUBCUT SCH ×3 (05:56→23:11)
[2018-06-21 06:08] LABS: EGFR Non-African American 113.8 (>60)
[2018-06-21] MEDS: Sertraline* 25 MG TAB PO SCH (08:32)
--- NOTE | 2018-06-21 11:16 | PN ---
Subjective Date of Service: 06/21/18 Interval History: Pt resting comfortably in bed, NAD. Reports pain is well controlled. Denies shortness of breath, chest pain, headache, dizziness, N/V/D/C, abdominal pain, numbness or tingling in extremities. Objective Active Medications: Acetaminophen (Tylenol Tab*) 650 mg PO Q4H PRN PRN Reason: FEVER/PAIN Hydrocodone Bitart/Acetaminophen (Mcintosh 5-325 Tab*) 1 tab PO Q6H PRN PRN Reason: PAIN Albuterol (Ventolin 2.5 Mg/3 Ml Neb.Kami*) 2.5 mg INH Q2H PRN PRN Reason: SOB/WHEEZING Heparin Sodium (Porcine) (Heparin Vial(*)) 5,000 units SUBCUT Q8HR [facility] Last Admin: 06/21/18 05:56 Dose: Not Given Sodium Chloride (Ns 0.9% 1000 Ml*) 1,000 mls @ 100 mls/hr IV PER RATE [facility] Last Admin: 06/21/18 03:54 Dose: 100 mls/hr Ondansetron HCl (Zofran Inj*) 4 mg IV Q6H PRN PRN Reason: NAUSEA Sertraline HCl (Zoloft*) 25 mg PO QAM [facility] Last Admin: 06/21/18 08:32 Dose: Not Given Vital Signs - 8 hr 06/21/18 06/21/18 06/21/18 03:58 07:33 08:00 Temperature 97.9 F 98.7 F Pulse Rate 76 82 Respiratory 16 16 16 Rate Blood Pressure 143/71 129/72 (mmHg) O2 Sat by Pulse 95 94 Oximetry Oxygen Devices in Use Now: None Eyes: No Scleral Icterus, PERRLA Ears/Nose/Mouth/Throat: NL Teeth, Lips, Gums, Mucous Membranes Moist Neck: NL Appearance and Movements; NL JVP, Trachea Midline Respiratory: Symmetrical Chest Expansion and Respiratory Effort, Clear to Auscultation Cardiovascular: NL Sounds; No Murmurs; No JVD, No Edema Abdominal: NL Sounds; No Tenderness; No Distention Extremities: No Edema, No Clubbing, Cyanosis Skin: No Rash or Ulcers Neurological: Alert and Oriented x 3, NL Muscle Strength and Tone Lines/Tubes/Other Access: Clean, Dry and Intact Peripheral IV Result Diagrams: 06/21/18 05:28 06/21/18 05:28 Assess/Plan/Problems-Billing Assessment: 78 year old female with PMH COPD and lung CA s/p mechanical fall in early May, admitted for repair of L femoral neck fracture with Dr. Coffey. - Patient Problems (1) Hip fracture, left Current Visit: Yes Status: Acute Code(s): S72.002A - FRACTURE OF UNSP PART OF NECK OF LEFT FEMUR, INIT SNOMED Code(s): 530795416 Comment: - Plan for OR today with Dr Coffey - CT with acute traumatic fracture of L femoral neck - Pt reports pain currenlty well controlled. Will add additional agents as needed post-op. (2) COPD (chronic obstructive pulmonary disease) Current Visit: Yes Status: Acute Code(s): J44.9 - CHRONIC OBSTRUCTIVE PULMONARY DISEASE, UNSPECIFIED SNOMED Code(s): 28994881 Comment: - No evidence of acute exacerbation. Continue PRN albuterol and nighly home O2, 3L. (3) Depression Current Visit: Yes Status: Acute Code(s): F32.9 - MAJOR DEPRESSIVE DISORDER , SINGLE EPISODE, UNSPECIFIED SNOMED Code(s): 22168515 Comment: - Continue zoloft (4) DVT prophylaxis Current Visit: Yes Status: Acute Code(s): AWM8506 - SNOMED Code(s): 613984562 Comment: - Heparin SQ (5) Full code status Current Visit: Yes Status: Acute Code(s): Z78.9 - OTHER SPECIFIED HEALTH STATUS SNOMED Code(s): 196019258 Status and Disposition: Inpatient.
[2018-06-21] MEDS: Acetaminophen TAB* 325 MG PO PRN (12:45)
[2018-06-21] MEDS ORDERED: HYDROmorphone INJ1* 1 MG/ML SYRINGE ONE (15:11)
[2018-06-21] MEDS ORDERED: Lidocaine 2% PF * 5 ML VIAL ONE ×2 (15:31→16:43)
[2018-06-21] MEDS ORDERED: Ketorolac INJ* 30 MG/ML 1 ML VIAL ONE (15:31)
[2018-06-21] MEDS ORDERED: Propofol* 10 MG/ML 20 ML BTL ONE ×2 (15:31→17:38)
[2018-06-21] MEDS ORDERED: Ondansetron INJ* 2 MG/ML VIAL ONE (15:31)
[2018-06-21] MEDS ORDERED: Dexamethasone IV* 4 MG/ML 1 ML (4 MG) ONE (15:31)
[2018-06-21] MEDS ORDERED: KETAMINE HCL* 50 MG/ML 10 ML VIAL ONE (15:32)
[2018-06-21] MEDS ORDERED: Midazolam* 1 MG/ML 5 ML VIAL (5 MG) ONE (15:32)
[2018-06-21] MEDS ORDERED: fentaNYL* 50 MCG/ML 2 ML VIAL (100 MCG VIAL) ONE (15:32)
[2018-06-21] MEDS ORDERED: ceFAZolin 2 GM PREMIX in ORs 2 GM/50 ML BAG IVPB ONE (15:36)
[2018-06-21] MEDS ORDERED: Bupivacaine 0.5% SDV PF* 30ML VIAL ONE (16:43)
[2018-06-21] MEDS ORDERED: Levalbuterol 0.63MG/3ML NEB* UNIT OF USE INH PRN (18:09)
[2018-06-21] MEDS ORDERED: Naloxone* 0.4 MG/ML 1 ML VIAL IV PRN (18:09)
[2018-06-21] MEDS ORDERED: Ondansetron INJ* 2 MG/ML VIAL IV PRN (18:09)
[2018-06-21] MEDS ORDERED: fentaNYL* 50 MCG/ML 2 ML VIAL (100 MCG VIAL) IV PRN (18:09)
[2018-06-21] MEDS ORDERED: Phenylephrine INJ* 50 MG in NS 0.9% 250 ML* 245 ML IV PRN (18:09)
[2018-06-21] MEDS ORDERED: oxyCODONE TAB* 5 MG TAB PO PRN (19:25)
[2018-06-22] MEDS ORDERED: Bisacodyl SUPP* 10 MG SUPP PR PRN (00:09)
[2018-06-22] MEDS ORDERED: ceFAZolin 1 GM* X 3 DOSES POST-OP Q8H (AddVan) IVPB SCH ×2 (01:30)
[2018-06-22] MEDS: ceFAZolin 1 GM in Dextrose (*) 1 GM/50 ML BAG IVPB SCH ×3 (01:53→17:27)
--- NOTE | 2018-06-22 05:35 | CONS ---
ORTHOPEDIC CONSULT NOTE: DATE OF CONSULT: 06/21/18 CHIEF COMPLAINT: Left femoral neck fracture with displacement. HISTORY OF PRESENT ILLNESS: Ms. Wooten is a 78-year-old female with multiple falls over the last month. On 05/24/18, she had a fall in her bathroom which was a mechanical fall. She was brought to the emergency room and found to have a proximal fibula fracture. I saw the patient in my office on 06/03/18. She was complaining of left knee pain and had advanced arthritis on radiographs. She was given a knee injection and reports she had five days of fantastic pain relief and was able to walk. At the 06/03/18 appointment, the patient had no hip pain and rotation at the hip did not cause pain. She then presented back to my office on 06/20/18. The patient's son reported that she could hardly stand or walk at all. She once again denied hip pain, reported distal femur and knee pain. Radiographs of the left hip, femur, and knee were obtained, which showed a displaced femoral neck fracture. I sent the patient immediately to the emergency room for CT scan to confirm this fracture. We discussed that she would likely need surgery and they wished for me to be her surgeon. PAST MEDICAL HISTORY: 1. Depression. 2. COPD. 3. Lung cancer. PAST SURGICAL HISTORY: Lobectomy for lung cancer. HOME MEDICATIONS: Zoloft one tablet p.o. daily. ALLERGIES: No known drug allergies. FAMILY HISTORY: Maternal lymphoma, paternal lung cancer. SOCIAL HISTORY: The patient lives with her at home. Normally walks minimal distance with a rolling walker. One to two drinks per day. No tobacco , but has history of tobacco use. Her son and are her surrogate decision makers. REVIEW OF SYSTEMS: Fourteen systems were reviewed with the patient today. Positive for left distal thigh pain, left knee pain, minimal hip pain. Negative for fevers, chills, chest pain, shortness of breath, nausea, vomiting, headache, or dizziness. Otherwise, the patient reports review of systems is negative or not relevant. PHYSICAL EXAM: Vitals: Temperature 97.8, pulse of 84, blood pressure 138/69. General: The patient is a well-nourished female, in no apparent distress. Alert and oriented x3. Pleasant mood and appropriate affect. Gait is not assessed. Balance not assessed. HEENT: Atraumatic, normocephalic. Pupils equal and reactive to light. Heart: S1 and S2. No murmurs, rubs, or gallops. Lungs: Clear to auscultation bilaterally. Abdomen: Soft, nondistended, nontender. Left lower extremity: The patient's skin is intact. No abrasions or open wounds. Some tenderness along the joint line of the knee medially. Has flexion of 70 degrees with minimal pain. Active straight leg raise. Distally 5/5 ankle dorsiflexion and plantar flexion strength. Full sensation to light touch in all nerve distributions and 2+ palpable DP pulse. DIAGNOSTIC STUDIES/LAB DATA: Multiple labs show, from 06/20/18, white blood cells 6.1, hematocrit 42, platelets 287. INR 1.02. Sodium 140, potassium 3.8, chloride 104. BUN and creatinine 17 and 0.6. Alk phos 121. BNP 113. Urinalysis positive for leukocyte esterase, no bacteria, white blood cells 2+. Studies: Multiple x- rays of the hip, femur, and knee show displaced femoral neck fracture with extreme osteopenia. There is advanced arthritis of the hip and knee joints. Pelvis CT from 06/20/18 at approximately 6 p.m. shows an acute traumatic fracture of the left femoral neck. ASSESSMENT AND PLAN: Ms. Wooten is a 78-year-old female with an abnormal presentation of left femoral neck fracture. She has had multiple falls over the last month. First documented fall on 05/24/18 left her with ability to walk , rotate the hip and no hip pain. Over the last week, the patient has become unable to ambulate. New films of the hip show displaced femoral neck fracture. The patient's family would like me to assume surgical care. Today, we discussed the risks and benefits of hemiarthroplasty and total hip arthroplasty. Due to her known baseline arthritis and her wish to be able to walk, we will perform left total hip arthroplasty to fix this fracture. She will be n.p.o. The medical team has optimized her and feels she is clear to proceed to surgery. We discussed the risks of surgery including but not limited to bleeding, infection, damage to nearby structures, continued pain, need for further surgery, intraoperative fracture, nerve palsy, hardware failure or loosening, stroke, heart attack, blood clot, and . She would like to proceed. We will tentatively schedule her for 5 p.m. on 06/21/18, left total hip arthroplasty for fixation of the displaced femoral neck fracture. Thank you for this orthopedic consultation. [id number]/[facility] #: [id number] RUIZ
[2018-06-22 05:46] LABS: ABS Basophils 0 10^3/ul (0-0.2); ABS Eosinophils 0 10^3/ul (0-0.6); ABS Lymphocytes 0.3 10^3/ul (1.0-4.8); ABS Monocytes 0.6 10^3/ul (0-0.8); ABS Neutrophils 6.5 10^3/ul (1.5-7.7); ABS Nucleated RBC 0 10^3/ul; Eosinophil % 0 %; Hematocrit 32 % (35-47); Hemoglobin 10.9 g/dl (12.0-16.0); Lymphocyte % 3.8 %; Mean Corpuscular HGB Conc 34 g/dl (31-36); Mean Corpuscular Hemoglobin 31 pg (27-31); Mean Corpuscular Volume 91 fL (80-97); Nucleated Red Blood Cells % 0; Platelet Count 228 10^3/ul (150-450); Red Blood Count 3.49 10^6/ul (4.00-5.40); Red Cell Distribution Width 13 % (10.5-15); White Blood Count 7.3 10^3/ul (3.5-10.8)
[2018-06-22] MEDS: Heparin VIAL(*) 5000 UNITS/ML VIAL (FIVE THOUSAND) SUBCUT SCH (05:50)
[2018-06-22 06:05] LABS: EGFR Non-African American 127.8 (>60)
[2018-06-22] MEDS: Docusate CAP* 100 MG PO SCH ×2 (08:23→20:11)
[2018-06-22] MEDS: Sertraline* 25 MG TAB PO SCH (08:23)
[2018-06-22] MEDS: NS 0.9% 1000 ML* 1,000 ML IV SCH ×2 (08:25→20:12)
--- NOTE | 2018-06-22 09:06 | PN ---
Subjective Date of Service: 06/22/18 Interval History: Patient resting comfortably in bed after yesterday's surgery. Denies hip pain. Denies shortness of breath, chest pain, dizziness, abdominal pain, numbness or tingling in extremities. Pt has not yet eaten today, but denies nausea/ vomiting. Pt does have E. coli in urine, but denies any urinary symptoms including dysuria, suprapubic pain, flank pain. Objective Active Medications: Acetaminophen (Tylenol Tab*) 650 mg PO Q4H PRN PRN Reason: FEVER/PAIN Last Admin: 06/21/18 12:45 Dose: 650 mg Hydrocodone Bitart/Acetaminophen ([place] 5-325 Tab*) 1 tab PO Q6H PRN PRN Reason: PAIN Albuterol (Ventolin 2.5 Mg/3 Ml Neb.Kami*) 2.5 mg INH Q2H PRN PRN Reason: SOB/WHEEZING Bisacodyl (Dulcolax Supp*) 10 mg ME DAILY PRN PRN Reason: CONSTIPATION Docusate Sodium (Colace Cap*) 100 mg PO BID [facility] Last Admin: 06/22/18 08:23 Dose: 100 mg Heparin Sodium (Porcine) (Heparin Vial(*)) 5,000 units SUBCUT Q8HR [facility] Last Admin: 06/22/18 05:50 Dose: 5,000 units Sodium Chloride (Ns 0.9% 1000 Ml*) 1,000 mls @ 100 mls/hr IV PER RATE [facility] Last Admin: 06/22/18 08:25 Dose: 100 mls/hr Cefazolin Sodium/Dextrose (Kefzol 1 Gm In Dextrose Duplex (*)) 1 gm in 50 mls @ 200 mls/hr IVPB Q8H [facility] Stop: 06/22/18 17:44 Last Admin: 06/22/18 01:53 Dose: 200 mls/hr Lactulose (Lactulose*) 30 ml PO Q6H PRN PRN Reason: CONSTIPATION Ondansetron HCl (Zofran Inj*) 4 mg IV Q6H PRN PRN Reason: NAUSEA Oxycodone HCl (Roxycodone Tab*) 5 mg PO Q4H PRN PRN Reason: PAIN MODERATE TO SEVERE Sertraline HCl (Zoloft*) 25 mg PO QAM [facility] Last Admin: 06/22/18 08:23 Dose: 25 mg Tramadol HCl (Ultram*) 50 mg PO Q6H PRN PRN Reason: PAIN Vital Signs - 8 hr 06/22/18 06/22/18 06/22/18 01:57 01:58 03:55 Temperature 98.0 F 98.1 F Pulse Rate 90 84 Respiratory 16 16 16 Rate Blood Pressure 102/59 99/53 (mmHg) O2 Sat by Pulse 100 100 99 Oximetry 06/22/18 06/22/18 06/22/18 05:51 07:40 08:00 Temperature 98.9 F Pulse Rate 78 Respiratory 16 16 16 Rate Blood Pressure 105/47 (mmHg) O2 Sat by Pulse 100 100 91 Oximetry Oxygen Devices in Use Now: Nasal Cannula Eyes: No Scleral Icterus, PERRLA Ears/Nose/Mouth/Throat: NL Teeth, Lips, Gums, Clear Oropharnyx, Mucous Membranes Moist Neck: NL Appearance and Movements; NL JVP, Trachea Midline Respiratory: Symmetrical Chest Expansion and Respiratory Effort, Clear to Auscultation Cardiovascular: NL Sounds; No Murmurs; No JVD, RRR, No Edema Abdominal: NL Sounds; No Tenderness; No Distention Skin: No Rash or Ulcers Neurological: Alert and Oriented x 3, NL Sensation, NL Muscle Strength and Tone , - - Able to dorsiflex and plantarflex Lines/Tubes/Other Access: Clean, Dry and Intact Peripheral IV Result Diagrams: 06/22/18 05:23 06/22/18 05:24 Microbiology and Other Data: Microbiology 06/20/18 22:30 Urine Culture - Final Urine Escherichia Coli Assess/Plan/Problems-Billing Assessment: 78 year old female with PMH COPD and lung CA s/p mechanical fall in early May, s/p left hip replacement with Dr. Coffey. - Patient Problems (1) Hip fracture, left Current Visit: Yes Status: Acute Code(s): S72.002A - FRACTURE OF UNSP PART OF NECK OF LEFT FEMUR, INIT SNOMED Code(s): 058530240 Comment: - POD 1 s/p left hip replacement with Dr Coffey - CT with acute traumatic fracture of L femoral neck - Pt reports pain currenlty well controlled - Anticoagulated with heparin SQ - Trend H/H - Continue supplimental IVF as BPs have been soft in 90s-100s (2) COPD (chronic obstructive pulmonary disease) Current Visit: Yes Status: Acute Code(s): J44.9 - CHRONIC OBSTRUCTIVE PULMONARY DISEASE, UNSPECIFIED SNOMED Code(s): 36120961 Comment: - No evidence of acute exacerbation. Continue PRN albuterol and nighly home O2, 3L. (3) Asymptomatic bacteriuria Current Visit: Yes Status: Acute Code(s): R82.71 - BACTERIURIA SNOMED Code (s): 673700200 Comment: - Urine culture with moderate amount of E. coli. Pt is asymptomatic, but in light of recent surgery, will treat with ceftriaxone to avoid spread of infection to new hardware. (4) Depression Current Visit: Yes Status: Acute Code(s): F32.9 - MAJOR DEPRESSIVE DISORDER , SINGLE EPISODE, UNSPECIFIED SNOMED Code(s): 35386345 Comment: - Continue zoloft (5) DVT prophylaxis Current Visit: Yes Status: Acute Code(s): POW5722 - SNOMED Code(s): 552132088 Comment: - Heparin SQ (6) Full code status Current Visit: Yes Status: Acute Code(s): Z78.9 - OTHER SPECIFIED HEALTH STATUS SNOMED Code(s): 837902060 Status and Disposition: Inpatient.
--- NOTE | 2018-06-22 11:05 | PN ---
Progress Note - Progress Note Date of Service: 06/22/18 SOAP: Subjective: []Patient seen and examined at bedside. She feels well s/p left total hip replacement. Denies CP, SOB, dizziness, nausea, dysuria. Objective: []General: Well appearing, NAD LLE: Left hip dressing CDI, thigh is soft, df/pf intact, DP2+, sensation intact distally Calves supple and nontender without erythema, edema or palpable cords Assessment: []POD 1 s/p left total hip replacement due to L femoral neck fracture Plan: []WBAT PT/OT ceftriaxone for UTI switched from heparin to lovenox for dvt prophylaxis, required for 30 days PMRU referral in Vital Signs Temp 98.9 F 06/22/18 07:40 Pulse 78 06/22/18 07:40 Resp 16 06/22/18 08:00 BP 105/47 06/22/18 07:40 Pulse Ox 96 06/22/18 10:00 Intake & Output 06/21/18 06/22/18 06/22/18 18:59 06:59 18:59 Intake Total 1044 2300 980 Output Total 300 350 100 Balance 744 1950 880 Intake: IV Fluids 1044 2000 925 LR 2000 NS (0.9%) 1044 925 IVPB 55 ABX - CEFAZOLIN 55 Oral 0 300 Output: Urine 300 200 100 Basurto 150 Laboratory Last Values WBC 7.3 10^3/ul (3.5-10.8) 06/22/18 05:23 RBC 3.49 10^6/ul (4.00-5.40) L 06/22/18 05:23 Hgb 10.9 g/dl (12.0-16.0) L 06/22/18 05:23 Hct 32 % (35-47) L 06/22/18 05:23 MCV 91 fL (80-97) 06/22/18 05:23 MCH 31 pg (27-31) 06/22/18 05:23 MCHC 34 g/dl (31-36) 06/22/18 05:23 RDW 13 % (10.5-15) 06/22/18 05:23 Plt Count 228 10^3/ul (150-450) 06/22/18 05:23 MPV 8.0 fL (7.4-10.4) 06/22/18 05:23 Neut % (Auto) 88.6 % 06/22/18 05:23 Lymph % (Auto) 3.8 % 06/22/18 05:23 [place] % (Auto) 7.6 % 06/22/18 05:23 Eos % (Auto) 0 % 06/22/18 05:23 Baso % (Auto) 0 % 06/22/18 05:23 Absolute Neuts (auto) 6.5 10^3/ul (1.5-7.7) 06/22/18 05:23 Absolute Lymphs (auto) 0.3 10^3/ul (1.0-4.8) L 06/22/18 05:23 Absolute Monos (auto) 0.6 10^3/ul (0-0.8) 06/22/18 05:23 Absolute Eos (auto) 0 10^3/ul (0-0.6) 06/22/18 05:23 Absolute Basos (auto) 0 10^3/ul (0-0.2) 06/22/18 05:23 Absolute Nucleated RBC 0 10^3/ul 06/22/18 05:23 Nucleated RBC % 0 06/22/18 05:23 INR (Anticoag Therapy) 1.07 (0.77-1.02) H 06/21/18 05:28 APTT 27.6 seconds (26.0-36.3) 06/20/18 18:33 Sodium 138 mmol/L (135-145) 06/22/18 05:24 Potassium 3.6 mmol/L (3.5-5.0) 06/22/18 05:24 Chloride 108 mmol/L (101-111) 06/22/18 05:24 Carbon Dioxide 25 mmol/L (22-32) 06/22/18 05:24 Anion Gap 5 mmol/L (2-11) 06/22/18 05:24 BUN 15 mg/dL (6-24) 06/22/18 05:24 Creatinine 0.47 mg/dL (0.51-0.95) L 06/22/18 05:24 Est GFR ( Amer) 154.7 (>60) 06/22/18 05:24 Est GFR (Non-Af Amer) 127.8 (>60) 06/22/18 05:24 BUN/Creatinine Ratio 31.9 (8-20) H 06/22/18 05:24 Glucose 218 mg/dL (70-100) H 06/22/18 05:24 Calcium 8.0 mg/dL (8.6-10.3) L 06/22/18 05:24 Total Bilirubin 0.60 mg/dL (0.2-1.0) 06/20/18 18:33 AST 22 U/L (13-39) 06/20/18 18:33 ALT 19 U/L (7-52) 06/20/18 18:33 Alkaline Phosphatase 121 U/L (34-104) H 06/20/18 18:33 B-Natriuretic Peptide 113 pg/mL (<=100) H 06/20/18 18:33 Total Protein 6.9 g/dL (6.4-8.9) 06/20/18 18: Albumin 4.1 g/dL (3.2-5.2) 06/20/18 18: Globulin 2.8 g/dL (2-4) 06/20/18 18:33 Albumin/Globulin Ratio 1.5 (1-3) 06/20/18 18:33 Urine Color Yellow 06/20/18 22:30 Urine Appearance Cloudy 06/20/18:30 Urine pH 7.0 (5-9) 06/20/18 22:30 Ur Specific [place] 1.016 (1.010-1.030) 06/20/18 22:30 Urine Protein Negative (Negative) 06/20/18 22:30 Urine Ketones Trace (Negative) A 06/20/18 22:30 Urine Blood Negative (Negative) 06/20/18 22:30 Urine Nitrate Negative (Negative) 06/20/18 22:30 Urine Bilirubin Negative (Negative) 06/20/18 22:30 Urine Urobilinogen Negative (Negative) 06/20/18:30 Ur Leukocyte Esterase 3+ (Negative) A 06/20/18 22:30 Urine WBC (Auto) 2+(11-20/hpf) (Absent) A 06/20/18 22:30 Urine RBC (Auto) Absent (Absent) 06/20/18 22:30 Ur Squamous Epith Cells Present (Absent) A 06/20/18 22:30 Urine Bacteria Absent (Absent) 06/20/18 22:30 Urine Glucose Negative (Negative) 06/20/18 22:30 Urine Ascorbic Acid * (Negative) A 06/20/18 22:30 Blood Type B Negative 06/20/18 18:33 Antibody Screen Negative 06/20/18 18:33
[2018-06-22] MEDS ORDERED: cefTRIAXone(*) 1 GM in NS 0.9% 50 ML* 50 ML IVPB SCH (12:00)
[2018-06-22] MEDS: Acetaminophen TAB* 325 MG PO PRN ×2 (12:42→17:25)
[2018-06-22] MEDS ORDERED: Enoxaparin(*) 30 MG/0.3 ML SYR SUBCUT SCH (14:00)
--- NOTE | 2018-06-22 17:35 | OP ---
DATE OF OPERATION: 06/21/18 - ROOM #338 DATE OF : 38 SURGEON: Daja Coffey MD FLOOR COVERING PRINTER ASSISTANT: EDUIN Latham. Salomon did help throughout the procedure with preparation of the leg, wound retraction, manipulation of the hip, and wound closure. PRE-OP DIAGNOSIS: Left displaced femoral neck fracture. POST-OP DIAGNOSIS: Left displaced femoral neck fracture. OPERATIVE PROCEDURE: Left total hip arthroplasty. COMPLICATIONS: None. ESTIMATED BLOOD LOSS: 200 cc. SPECIMENS: Femoral head and acetabular reamings sent to pathology. HARDWARE USED: This is uncemented [place] total hip arthroplasty hardware. For the cup, a Tritanium cluster hole shell 50D, single 20-mm cancellous bone screw. For the liner, a Trident X3 0 degree polyethylene insert 36 D. For the stem, an Accolade II size 6 with a 127-degree neck. For the head, a Biolox delta ceramic V40 femoral head 36 -5. BRIEF HISTORY/INDICATIONS: Ms. Wooten is a 78-year-old female with multiple falls over the last month. The patient's family reports over the last week, she has had difficulty standing and weightbearing. She presented to my clinic for followup of knee pain and a proximal fibular fracture. We obtained new films of the hip, femur, knee, and diagnosed her with a displaced femoral neck fracture. I sent the patient immediately to [facility] where she was admitted. A CT scan confirmed a displaced femoral neck fracture. She was admitted to hospitalist group and optimized for surgery. The patient elected to undergo total hip arthroplasty after being given different options. She understood the risks of surgery included but were not limited to bleeding, infection, damage to nearby structures, continued pain, need for further surgery , intraoperative fracture, nerve palsy, hardware failure or loosening, dislocation, leg length discrepancy, stroke, heart attack, blood clot, and . She wished to proceed. INTRAOPERATIVE FINDINGS: Intraoperatively, the patient was noted to have a displaced femoral neck fracture. She had significant osteopenia. She had complete loss of cartilage in the acetabulum and femoral head. DESCRIPTION OF PROCEDURE: Ms. Wooten was identified in the preanesthesia unit. Her left lower extremity was marked as the correct operative side. Informed consent was signed and placed in the chart. The patient was taken to the operating room and placed under spinal anesthesia. A Basurto catheter was placed. The patient was placed in the right lateral decubitus position on the pegboard. All bony prominences were well padded. Left lower extremity was prepped and draped in the usual sterile fashion. Preop time-out was made to correctly identify the patient's side and site. Appropriate perioperative antibiotics were given within 1 hour of incision. A 10-cm posterior hip incision was made with a 10 blade and carried down to the lateral fascial layer. Lateral fascial layer was incised in line with the skin incision. The piriformis and conjoint tendons were identified. These were elevated off the posterolateral femur and tagged with #5 Ethibond. Next, a capsular flap was made posteriorly with electrocautery and also tagged with #5 Ethibond. The femoral neck fracture and hematoma was immediately visualized. The proximal femur was presented. Oscillating saw was used to make a femoral neck clean-up cut. Any bony fragments were carefully removed with rongeur. Cork screw was used to remove the femoral head from the acetabulum and the femur was retracted anteriorly. The acetabulum had significant wear with complete loss of cartilage. There was subchondral sclerosis visible. A long handled knife was used to sharply remove any remaining labrum from the acetabular rim. The acetabulum was sequentially reamed up to a size 49. Bleeding subchondral bone bed was obtained. 49 trial was impacted into the acetabulum and had good fit. The final implant chosen was a Tritanium cluster hole shell 50D. This was impacted into the acetabulum without difficulty. The cup was stable with appropriate anteversion and abduction angle. A single 20- mm screw was placed in the superior posterior quadrant for extra stability. A Trident X3 36D, 0-degree polyethylene insert was chosen as the final implant and this was impacted into the acetabulum. Stability of the insert was checked and rechecked and noted to be stable. Next, attention was turned to preparation of the femoral canal. A canal finder was used to enter the proximal femur. The femur was sequentially broached up to a size 6. Size 6 broach had excellent fit and appropriate anteversion. A 127-neck trial was placed with a 36 +0 head trial. Lesser troch to the center of the femoral head measured 60 mm. Hip was reduced and taken through a range of motion. Soft tissue tension was significantly increased. Therefore, the hip was dislocated and the -36 -5 head was chosen. Lesser troch to the center of the femoral head measured 55 mm. Hip was reduced and taken through a range of motion. Soft tissue tension and leg lengths were deemed to be appropriate. The hip was stable in all positions. The hip was carefully dislocated. All trials were removed. Final implant chosen was an Accolade II size 6 with a 127- degree neck. This was impacted into the femoral canal without difficulty. The stem was extremely stable with appropriate anteversion. A Biolox delta ceramic V40 36 -5 femoral head was chosen. This was impacted onto the femoral neck. Lesser troch to the center of the femoral head final measurement was 55 mm. The hip was reduced and taken through a range of motion. The hip was stable in all positions. There was good soft tissue tension and appropriate leg length. The hip was copiously irrigated with sterile saline. Previously tagged capsule and tendons were reapproximated to the posterolateral femur through 2 trochanteric drill holes. The hip was once again copiously irrigated with sterile saline. The lateral fascial layer was closed using interrupted #1 Vicryls. Rest of the incisions were closed in a layered fashion using 0 and 2-0 Vicryls. The skin was closed using running 3-0 Monocryl and Dermabond. Sterile Adaptic, 4x4s, and paper tape were placed over the incision. The patient's anesthesia was reversed without difficulty. She was taken to the PACU in stable condition. Intended weightbearing will be weightbearing as tolerated. She will have posterior hip precautions. Intended DVT prophylaxis will be Lovenox. [id number]/[facility] #: [id number] RUIZ
[2018-06-22] MEDS ORDERED: NS 0.9% 250 ML* 250 ML IV ONE (19:23)
[2018-06-22] MEDS: traMADol TAB* 50 MG PO PRN (22:15)
[2018-06-23] MEDS: Acetaminophen TAB* 325 MG PO PRN ×2 (00:34→07:35)
[2018-06-23 05:18] LABS: ABS Basophils 0 10^3/ul (0-0.2); ABS Eosinophils 0 10^3/ul (0-0.6); ABS Lymphocytes 0.5 10^3/ul (1.0-4.8); ABS Monocytes 0.9 10^3/ul (0-0.8); ABS Neutrophils 5.4 10^3/ul (1.5-7.7); ABS Nucleated RBC 0 10^3/ul; Eosinophil % 0.2 %; Hematocrit 27 % (35-47); Hemoglobin 9.2 g/dl (12.0-16.0); Mean Corpuscular HGB Conc 34 g/dl (31-36); Mean Corpuscular Hemoglobin 31 pg (27-31); Mean Corpuscular Volume 91 fL (80-97); Mean Platelet Volume 7.8 fL (7.4-10.4); Nucleated Red Blood Cells % 0; Platelet Count 196 10^3/ul (150-450); Red Blood Count 3.01 10^6/ul (4.00-5.40); Red Cell Distribution Width 14 % (10.5-15); White Blood Count 6.7 10^3/ul (3.5-10.8)
[2018-06-23] MEDS: traMADol TAB* 50 MG PO PRN (05:21)
[2018-06-23 05:37] LABS: EGFR Non-African American 137.9 (>60)
[2018-06-23] MEDS: NS 0.9% 1000 ML* 1,000 ML IV SCH (06:23)
[2018-06-23] MEDS: Docusate CAP* 100 MG PO SCH (07:35)
[2018-06-23] MEDS: Sertraline* 25 MG TAB PO SCH (07:35)
[2018-06-23 07:36] VITALS: BP 117/47
--- NOTE | 2018-06-23 09:53 | PN ---
Progress Note - Progress Note Date of Service: 06/23/18 SOAP: Subjective: []Patient was seen and examined at bedside. She feels well without complaint of left hip pain. She is in good spirits and has been able to stand with assist. Denies CP, SOB, dizziness, nausea. Objective: []General: Well appearing, NAD LLE: Left hip dressing changed, incision is CDI, thigh is soft, df/pf intact, DP2+, sensation intact distally Calves supple and nontender without erythema, edema or palpable cords Assessment: []POD 2 s/p left total hip replacement due to L femoral neck fracture Plan: []WBAT PT/OT ceftriaxone for UTI lovenox 30 mg sq qd x 30 days post op PMRU dc today per medicine, ready from ortho standpoint Laboratory Last Values WBC 6.7 10^3/ul (3.5-10.8) 06/23/18 05:03 RBC 3.01 10^6/ul (4.00-5.40) L 06/23/18 05:03 Hgb 9.2 g/dl (12.0-16.0) L 06/23/18 05:03 Hct 27 % (35-47) L 06/23/18 05:03 MCV 91 fL (80-97) 06/23/18 05:03 MCH 31 pg (27-31) 06/23/18 05:03 MCHC 34 g/dl (31-36) 06/23/18 05:03 RDW 14 % (10.5-15) 06/23/18 05:03 Plt Count 196 10^3/ul (150-450) 06/23/18 05:03 MPV 7.8 fL (7.4-10.4) 06/23/18 05:03 Neut % (Auto) 79.6 % 06/23/18 05:03 Lymph % (Auto) 7.0 % 06/23/18 05:03 [place] % (Auto) 13.0 % 06/23/18 05:03 Eos % (Auto) 0.2 % 06/23/18 05:03 Baso % (Auto) 0.2 % 06/23/18 05:03 Absolute Neuts (auto) 5.4 10^3/ul (1.5-7.7) 06/23/18 05:03 Absolute Lymphs (auto) 0.5 10^3/ul (1.0-4.8) L 06/23/18 05:03 Absolute Monos (auto) 0.9 10^3/ul (0-0.8) H 06/23/18 05:03 Absolute Eos (auto) 0 10^3/ul (0-0.6) 06/23/18 05:03 Absolute Basos (auto) 0 10^3/ul (0-0.2) 06/23/18 05:03 Absolute Nucleated RBC 0 10^3/ul 06/23/18 05:03 Nucleated RBC % 0 06/23/18 05:03 INR (Anticoag Therapy) 1.07 (0.77-1.02) H 06/21/18 05:28 APTT 27.6 seconds (26.0-36.3) 06/20/18 18:33 Sodium 138 mmol/L (135-145) 06/23/18 05:03 Potassium 3.6 mmol/L (3.5-5.0) 06/23/18 05:03 Chloride 110 mmol/L (101-111) 06/23/18 05:03 Carbon Dioxide 26 mmol/L (22-32) 06/23/18 05:03 Anion Gap 2 mmol/L (2-11) 06/23/18 05:03 BUN 10 mg/dL (6-24) 06/23/18 05:03 Creatinine 0.44 mg/dL (0.51-0.95) L 06/23/18 05:03 Est GFR ( Amer) 166.9 (>60) 06/23/18 05:03 Est GFR (Non-Af Amer) 137.9 (>60) 06/23/18 05:03 BUN/Creatinine Ratio 22.7 (8-20) H 06/23/18 05:03 Glucose 106 mg/dL (70-100) H 06/23/18 05:03 Calcium 8.0 mg/dL (8.6-10.3) L 06/23/18 05:03 Total Bilirubin 0.60 mg/dL (0.2-1.0) 06/20/18 18:33 AST 22 U/L (13-39) 06/20/18 18:33 ALT 19 U/L (7-52) 06/20/18 18:33 Alkaline Phosphatase 121 U/L (34-104) H 06/20/18 18:33 B-Natriuretic Peptide 113 pg/mL (<=100) H 06/20/18 18:33 Total Protein 6.9 g/dL (6.4-8.9) 06/20/18 18:33 Albumin 4.1 g/dL (3.2-5.2) 06/20/18 18: Globulin 2.8 g/dL (2-4) 06/20/18 18: Albumin/Globulin Ratio 1.5 (1-3) 06/20/18 18:33 Urine Color Yellow 06/20/18 22:30 Urine Appearance Cloudy 06/20/18 22:30 Urine pH 7.0 (5-9) 06/20/18 22:30 Ur Specific [place] 1.016 (1.010-1.030) 06/20/18 22:30 Urine Protein Negative (Negative) 06/20/18 22:30 Urine Ketones Trace (Negative) A 06/20/18 22:30 Urine Blood Negative (Negative) 06/20/18 22:30 Urine Nitrate Negative (Negative) 06/20/18 22:30 Urine Bilirubin Negative (Negative) 06/20/18 22:30 Urine Urobilinogen Negative (Negative) 06/20/18 22:30 Ur Leukocyte Esterase 3+ (Negative) A 06/20/18 22:30 Urine WBC (Auto) 2+(11-20/hpf) (Absent) A 06/20/18 22:30 Urine RBC (Auto) Absent (Absent) 06/20/18 22:30 Ur Squamous Epith Cells Present (Absent) A 06/20/18 22:30 Urine Bacteria Absent (Absent) 06/20/18 22:30 Urine Glucose Negative (Negative) 06/20/18 22:30 Urine Ascorbic Acid * (Negative) A 06/20/18 22:30 Blood Type B Negative 06/20/18 18: Antibody Screen Negative 06/20/18 18:33 Vital Signs Temp 97.4 F 06/23/18 07:20 Pulse 90 06/23/18 07:20 Resp 16 06/23/18 08:00 BP 117/47 06/23/18 07:20 Pulse Ox 99 06/23/18 08:00 Intake & Output 06/22/18 06/23/1818 18:59 06:59 18:59 Intake Total 1390 3166 240 Output Total 225 450 0 Balance 1165 2716 240 Intake: IV Fluids 925 2206 NS (0.9%) 925 2206 IVPB 165 ABX - CEFAZOLIN 165 Oral 300 960 240 Output: Urine 225 450 0 Other: Estimated Void Small # Bowel Movements 0
[2018-06-23] MEDS ORDERED: Sulfamethox/Trimethoprim DS 800/160* TAB PO SCH (12:00)
--- NOTE | 2018-06-24 04:30 | DS ---
CC: Dr. Coffey; Dr. Sutton * DISCHARGE SUMMARY: DATE OF ADMISSION: DATE OF DISCHARGE: 06/23/18 PROVIDER: Cecilia Gao NP ATTENDING PHYSICIAN: Dr. Montes * (dictated by Cecilia Gao NP). CONSULTING PHYSICIAN: Dr. Coffey. PRIMARY CARE PHYSICIAN: Dr. Sutton. PRIMARY DIAGNOSIS: Left hip fracture. SECONDARY DIAGNOSES: 1. Chronic obstructive pulmonary disease. 2. Depression. MEDICATIONS ON DISCHARGE: 1. Zoloft 25 mg p.o. daily. 2. Colace 100 mg p.o. b.i.d. 3. Ventolin 2.5 mg INH q.2 hours p.r.n. 4. Tylenol 650 mg p.o. q.4 hours p.r.n. 5. Ultram 50 mg p.o. q.6 hours p.r.n. 6. [place] 1 tab p.o. q.6 hours p.r.n. 7. Bactrim 1 tab p.o. q.24 hours for 3 days. 8. Lovenox 30 mg subcu q.24 hours. HOSPITAL COURSE: The patient is a 78-year-old female with past medical history significant for COPD and lung cancer, who sustained a mechanical fall a few weeks ago in her bathroom. Dr. Coffey evaluated the patient in her office on 04/12 and the patient was complaining of left knee pain at that time and had an x-ray, which showed advanced arthritis and she was given a knee injection, which improved her pain. At that time, the patient had no hip pain and rotation of the hip did not cause any pain. Few weeks later, she reported that her leg pain was increasing and she presented back to Dr. Cofefy's office on . At this time, she again denied hip pain, but reported distal femur and knee pain. At that time, x-rays were obtained, which showed a displaced femoral neck fracture and Dr. Coffey sent the patient to the ED for a CT scan to confirm this finding. In the ED, her CT confirmed a left trochanteric fracture and she was evaluated by the hospitalist team and deemed medically optimized for total hip arthroplasty with Dr. Coffey. The patient underwent the left total hip arthroplasty for fixation of the displaced femoral neck fracture on . Postoperatively, the patient was doing well and reported that her pain was well controlled. Of note, a UA and urine culture were done at the time of the patient's initial ED visit and she was found to have a moderate amount of pansensitive E. coli in her urine. The patient denied any urinary symptoms including dysuria, suprapubic pain, flank pain, and the patient was afebrile and without leukocytosis. However, in light of the patient's recent surgery, she was initially treated with IV ceftriaxone and will be discharged with p.o. Bactrim, which she should take for an additional 3 days. The patient was approved to undergo rehab at [facility] and she is stable for discharge there. PHYSICAL EXAMINATION ON THE DAY OF DISCHARGE: General Appearance: The patient is alert, pleasant, appears to be in no acute distress. HEENT: Normocephalic, atraumatic. Pupils are equal, round, and reactive to light and accommodation. EOMs are intact. Neck: Supple. No lymphadenopathy noted. No JVD appreciated. Respiratory: There is no accessory muscle use. There were some mild expiratory wheezes in her right lower lung base. The patient had normal work of breathing. Cardiac: Regular rate and rhythm. S1 and S2 present. No murmurs, rubs, or gallops. Abdomen: Soft, nontender, nondistended. Bowel sounds x4. Extremities: No lower extremity edema. DP and PT pulses are 2+ and symmetric. Musculoskeletal: No clubbing or cyanosis noted. The patient exhibited 5/5 strength in all 4 extremities. Neuro: The patient is alert and oriented x3. Psych: The patient is calm and cooperative. Skin: No rashes or abnormalities seen. DISPOSITION: The patient is stable for discharge to [facility]. DIET: Regular diet. ACTIVITY: Activity as tolerated. FOLLOW UP: The patient is instructed to follow up with Dr. Coffey within 10 to 14 days and to call for an appointment. TIME SPENT: Time spent on this discharge was 35 minutes. CECILIA GAO, YEHUDA [id number]/[facility] #: [id number] RUIZ
== END 2018-06-23 09:47 | DRG 470 ==
LOC: ED 17:58 → SSU 19:54
PROVIDERS: ADMIT Pediatrics; ATTEND Orthopaedic Surgery Adult Reconstructive Orthopaedic Surgery
PROC: 0SRB04A Replacement of Left Hip Joint with Ceramic on Polyethylene Synthetic Substitute, Uncemented, Open Approach (ICD-10-PCS; principal; 2018-06-21 17:00)
DX: S72.002A Fracture of unspecified part of neck of left femur, initial encounter for closed fracture (principal); N39.0 Urinary tract infection, site not specified; W17.89XA Other fall from one level to another, initial encounter; F32.9 Major depressive disorder, single episode, unspecified; J44.9 Chronic obstructive pulmonary disease, unspecified; K57.90 Diverticulosis of intestine, part unspecified, without perforation or abscess without bleeding; M85.88 Other specified disorders of bone density and structure, other site; M17.12 Unilateral primary osteoarthritis, left knee; M16.12 Unilateral primary osteoarthritis, left hip; B96.20 Unspecified Escherichia coli [E. coli] as the cause of diseases classified elsewhere; Z80.1 Family history of malignant neoplasm of trachea, bronchus and lung; Z91.81 History of falling; Y92.002 Bathroom of unspecified non-institutional (private) residence as the place of occurrence of the external cause; Z85.118 Personal history of other malignant neoplasm of bronchus and lung; Z90.2 Acquired absence of lung [part of]; Z83.3 Family history of diabetes mellitus; Z80.7 Family history of other malignant neoplasms of lymphoid, hematopoietic and related tissues; Z72.89 Other problems related to lifestyle; Z87.891 Personal history of nicotine dependence; Z98.42 Cataract extraction status, left eye; Z98.41 Cataract extraction status, right eye; Z79.01 Long term (current) use of anticoagulants
CPT/HCPCS: 36415; 71045; 72192; 80048; 80053; 81003; 81015; 83880; 85025; 85610; 85730; 86850; 86900; 86901; 87077; 87086; 87186; 88305; 88311; 93005; 99284; A9270-GY; C1713; C1776; G8978-GP-CL; G8979-GP-CI; J0690; J0696; J1100; J1170; J1644; J1650; J1885; J2250; J2405; J2704; J3010

== ENCOUNTER 2018-06-23 07:38 | Inpatient (IN) | payer MEDICARE, BC ==
[2018-06-23] MEDS ORDERED: Al Hydrox/Mg Hydrox/Simet LIQ* 30 ML UDC PO PRN (08:04)
[2018-06-23] MEDS ORDERED: Bisacodyl SUPP* 10 MG SUPP PR PRN (08:04)
[2018-06-23] MEDS ORDERED: Enoxaparin(*) 30 MG/0.3 ML SYR SUBCUT SCH (09:00)
[2018-06-23] MEDS ORDERED: cefTRIAXone(*) 1 GM in NS 0.9% 50 ML* 50 ML IVPB SCH (09:00)
[2018-06-23] MEDS: Docusate CAP* 100 MG PO SCH ×2 (12:39→19:40)
[2018-06-23] MEDS: Sertraline* 25 MG TAB PO SCH (12:40)
[2018-06-23] MEDS: Phenazopyridine TAB* 100 MG PO SCH ×2 (13:43→20:09)
--- NOTE | 2018-06-23 14:22 | HP ---
CC: Dr. Sutton; Dr. Coffey * REHABILITATION ADMISSION: DATE OF ADMISSION: 06/23/18 PRIMARY CARE PROVIDER: Dr. Sutton. ORTHOPEDIC SURGEON: Dr. Coffey. REASON FOR ADMISSION: Left hip fracture, status post total hip replacement. HISTORY OF PRESENT ILLNESS: This is a 78-year-old woman who fell in her bathroom a few weeks prior to admission. She was diagnosed with a proximal fibular fracture. On 06/03/18, she noted knee pain, which seemed to improve after an injection. She had no symptoms that referred to the hip. She was seen by Dr. Coffey on 06/20/18 because she was having difficulty ambulating. X- ray revealed a femoral neck fracture, even though she really had not complained specifically of any hip pain. She was sent to the emergency room where a CT confirmed a left trochanteric fracture. She was taken to the OR by Dr. Coffey on 06/21/18 for a left total hip replacement. Postoperatively, she is weightbearing as tolerated and has total hip precautions. She has been put on Lovenox for 30 days for DVT prophylaxis. She has been having trouble urinating and was diagnosed with urinary tract infection with low-levels of E. Coli. She was started on IV ceftriaxone yesterday. Overnight, she has been able to void, but feels like she needs to urinate all the time. Prior to admission, she was independent with ADLs and mobility and sometimes did use a walker within her home. Her helped with IADL activities. With occupational therapy here , she has required a total amount of assistance for lower body dressing, maximum amount of assistance for bathing, and moderate assistance for toileting. With physical therapy, she requires a minimum amount of assistance for bed mobility, moderate to maximum amount of assistance x2 for transferring and has been unable to ambulate. Routine labs have shown that she has acute postoperative anemia. She has not had any lightheadedness, dizziness, chest pain, or shortness of breath. She has COPD and normally uses oxygen 2 to 2.5 liters at night. She previously had lung cancer and is status post lobectomy. She has not had a bowel movement since her surgery. PAST MEDICAL HISTORY: 1. Depression. 2. COPD using oxygen at night. 3. History of lung cancer, status post lobectomy. 4. Urinary tract infection, see history of present illness. 5. Left hip fracture, status post total hip replacement, see history of present illness. MEDICATIONS: 1. Zoloft 25 mg q. day. 2. Tylenol 650 mg q.4 hours p.r.n. pain. 3. Ceftriaxone 1 g IV q.24 hours. 4. Colace 100 mg b.i.d. 5. Lovenox 30 mg subcutaneously q. day. 6. Tramadol 50 mg q.6 hours p.r.n. pain. ALLERGIES: No known drug allergies. FAMILY HISTORY: Father with lung cancer, mother lymphoma. SOCIAL HISTORY: She lives with her who is her healthcare proxy if she cannot make decisions for herself. She has 3 grown children. One lives in [place], one is in [facility], and one is in [place]. She is a former smoker. She occasional drinks alcohol. She lives in a race track with her . From the garage to the living level, there are a total of 12 steps with 2 handrails. REVIEW OF SYSTEMS: See history of present illness and past medical history. The reminder of the 13-system review is noncontributory. PHYSICAL EXAMINATION GENERAL: Well developed, well nourished, appearing the stated age. Mental status; in no acute distress. Alert and oriented x3. VITAL SIGNS: Temperature 97.4, heart rate 90, respirations 16, oxygenation 99% on 2 liters, blood pressure 117/47. HEENT: Normocephalic and atraumatic. Oropharynx clear. Moist mucous membranes. LUNGS: Clear to auscultation bilaterally. HEART: Regular rate and rhythm. ABDOMEN: Active bowel sounds. Soft, nontender, and nondistended. EXTREMITIES: No clubbing, cyanosis, or edema. MUSCULOSKELETAL EXAM: She has functional range of motion of all of her major joints with limited testing of the left hip and knee. She is not tender along the fibula at this point and only has soreness in her left thigh. NEUROLOGIC: Cranial nerves II through XII intact. 5/5 strength in bilateral upper and lower extremities with limited testing of the left hip and knee secondary to pain. Sensation is intact in all 4 extremities. LABORATORY DATA: Today, hemoglobin 9.2, hematocrit 27, white blood cells 6.7, platelets 196. IMPRESSION: A 78-year-old woman, status post left hip fracture and total hip replacement. She will be admitted to [facility] so she can return to living independently. PLAN: 1. Status post left hip fracture and total hip replacement. Continue weightbearing as tolerated LLE and left total hip precautions. She will need followup with Dr. Coffey. 2. DVT prophylaxis. Continue Lovenox 30 mg daily for 30 days. She will be taught self administration. 3. Acute postoperative anemia. Follow her CBC tomorrow and weekly thereafter as needed. 4. Chronic obstructive pulmonary disease. Continue oxygen at night and during the day as needed. Try to wean off daytime oxygen. 5. Depression. Continue Zoloft. 6. Urinary tract infection. Her culture grew pansensitive E. Coli. Continue use of ceftriaxone for a total of 3 more days. I will prescribe Pyridium for her urinary urgency. 7. Impaired mobility. She will be seen by Physical Therapy for bed mobility, transfer, gait, and stair training using a walker. 8. Impaired self care. She will be seen by Occupational Therapy for ADL training and equipment evaluation as needed. 9. Advanced directives. Her is her healthcare proxy if she cannot make decisions for herself. She is also happy for her children to make decisions for her if needed as her is apparently currently hospitalized. ESTIMATED LENGTH OF STAY: 14 days. [id number]/[facility] #: [id number] MTDD
[2018-06-23] MEDS: traMADol TAB* 50 MG PO PRN ×2 (16:08→22:42)
[2018-06-24 05:19] LABS: ABS Basophils 0 10^3/ul (0-0.2); ABS Eosinophils 0 10^3/ul (0-0.6); ABS Lymphocytes 0.4 10^3/ul (1.0-4.8); ABS Monocytes 0.6 10^3/ul (0-0.8); ABS Neutrophils 5.4 10^3/ul (1.5-7.7); ABS Nucleated RBC 0 10^3/ul; Eosinophil % 0.7 %; Hematocrit 28 % (35-47); Hemoglobin 9.4 g/dl (12.0-16.0); Lymphocyte % 6.1 %; Mean Corpuscular HGB Conc 34 g/dl (31-36); Mean Corpuscular Hemoglobin 31 pg (27-31); Mean Corpuscular Volume 91 fL (80-97); Mean Platelet Volume 7.9 fL (7.4-10.4); Nucleated Red Blood Cells % 0; Platelet Count 214 10^3/ul (150-450); Red Blood Count 3.02 10^6/ul (4.00-5.40); Red Cell Distribution Width 14 % (10.5-15); White Blood Count 6.6 10^3/ul (3.5-10.8)
[2018-06-24] MEDS: Docusate CAP* 100 MG PO SCH ×2 (08:41→21:51)
[2018-06-24] MEDS: Sertraline* 25 MG TAB PO SCH (08:48)
[2018-06-24] MEDS: traMADol TAB* 50 MG PO PRN ×2 (08:48→16:08)
[2018-06-24] MEDS: Phenazopyridine TAB* 100 MG PO SCH ×3 (08:48→21:50)
--- NOTE | 2018-06-24 08:52 | PN ---
Progress Note Date of Service: 06/24/18 Note: JIAN DOBBINS was visited. Nursing and therapy notes read and reviewed. She is a little forgetful. No chest pain, shortness of breath or abdominal pain. Her only pain is in the left thigh. Tramadol is adequate. It is getting a little easier to urinate, but she notes about a year ago having a similar issue that was resolved with a procedure done by Dr. Bailon. Current Medications: Active Medications Generic Name Dose Route Start Last Admin Trade Name Freq PRN Reason Stop Dose Admin Acetaminophen 650 mg 06/23/18 08:04 Tylenol Tab* PO Q4H PRN FEVER > 101 Al Hydrox/Mg Hydrox/Simethicone 30 ml 06/23/18 08:04 Maalox Plus* PO Q6H PRN INDIGESTION Bisacodyl 10 mg 06/23/18 08:04 Dulcolax Supp* NM DAILY PRN CONSTIPATION Docusate Sodium 100 mg 06/23/18 09:00 06/24/18 08:41 Colace Cap* PO Not Given BID BEA Enoxaparin Sodium 30 mg 06/24/18 12:00 Lovenox(*) SUBCUT DAILY@1200 [facility] Ceftriaxone Sodium 1 gm/ 50 mls @ 200 mls/hr 06/24/18 12:00 Sodium Chloride IVPB 06/24/18 23:59 1200 [facility] Magnesium Hydroxide 30 ml 06/23/18 08:04 Milk Of Magnesia Liq* PO Q6H PRN CONSTIPATION Phenazopyridine HCl 100 mg 06/23/18 14:00 06/24/18 08:48 Pyridium Tab* PO 100 mg TID BEA Administration Senna 2 tab 06/23/18 08:04 Senokot Tab* PO BEDTIME PRN CONSTIPATION Sertraline HCl 25 mg 06/23/18 09:00 06/24/18 08:48 Zoloft* PO 25 mg DAILY BEA Administration Tramadol HCl 50 mg 06/23/18 08:13 06/24/18 08:48 Ultram* PO 50 mg Q6H PRN Administration PAIN Vital Signs: Vital Signs Temp Pulse Resp BP Pulse Ox 97.9 F 108 18 133/71 99 06/24/18 05:31 06/24/18 05:31 06/24/18 08:50 06/24/18 05:31 06/24/18 05:31 Lab Results: Laboratory Results - last 24 hr 06/24/18 06/24/18 05:11 05:11 WBC 6.6 RBC 3.02 L Hgb 9.4 L Hct 28 L MCV 91 MCH 31 MCHC 34 RDW 14 Plt Count 214 MPV 7.9 Neut % (Auto) 83.1 Lymph % (Auto) 6.1 [place] % (Auto) 9.8 Eos % (Auto) 0.7 Baso % (Auto) 0.3 Absolute Neuts (auto) 5.4 Absolute Lymphs (auto) 0.4 L Absolute Monos (auto) 0.6 Absolute Eos (auto) 0 Absolute Basos (auto) 0 Absolute Nucleated RBC 0 Nucleated RBC % 0 Sodium 138 Potassium 3.7 Chloride 107 Carbon Dioxide 28 Anion Gap 3 BUN 9 Creatinine 0.40 L Est GFR ( Amer) 186.3 Est GFR (Non-Af Amer) 154.0 BUN/Creatinine Ratio 22.5 H Glucose 97 Calcium 8.5 L Total Bilirubin 0.40 AST 30 ALT 24 Alkaline Phosphatase 89 Total Protein 5.0 L Albumin 2.8 L Globulin 2.2 Albumin/Globulin Ratio 1.3 Exam: GEN: no acute distress. Alert and appropriate. LUNGS: clear to auscultation bilaterally. CV: regular rate and rhythm ABD: + bowel sounds, soft, non-tender, non-distended EXT: No edema. NEURO: normal sensation BLE. Motor 5/5 BLE except pain limited left knee and hip. Assessment/Plan: IMPRESSION: A 78-year-old woman, status post left hip fracture and total hip replacement. PLAN: 1. Status post left hip fracture and total hip replacement. Continue weightbearing as tolerated LLE and left total hip precautions. PT/OT. F/u with Dr. Coffey. 2. DVT prophylaxis. Continue Lovenox 30 mg daily for 30 days. She will be taught self administration. 3. Acute postoperative anemia. CBC stable. f/u next Wednesday. 4. Chronic obstructive pulmonary disease. Continue oxygen at night and during the day as needed. Try to wean off daytime oxygen. 5. Depression. Continue Zoloft. 6. Urinary tract infection. Her culture grew pansensitive E. Coli. Continue use of ceftriaxone for a total of 2 more days. Pyridium for urinary urgency. 7. Urethral stricture. I called Dr. Bailon's office. She had cystoscopy and dilitation of a severe stricture on 01/16/15. She was supposed to f/u, but did not. F/u after discharge with Dr. Bailon. 8. Advanced directives. Full code. Her is her healthcare proxy if she cannot make decisions for herself. 9. Estimated LOS: IPOC today. 06/24/18 09:51
--- NOTE | 2018-06-24 12:39 | PMRUTEAM ---
PMRU: Team Meeting Current Status: Nursing: Current Status Skin Deviations [Left Hip] Incision Skin Deviation Description [ well approximated, little pink, no drainage seen Left Hip] Physical Therapy: Current Status Bed Mobility Assistance mod A Transfer Moblility Assistance 2 min A Transfer/Bed Mobility Rolling Walker Recommended Devices Ambulation Assistance mod A Ambulation Assistive Devices Rolling Walker Number of Feet Patient 4 Ambulated Stairs Assistance not tested Stairs Recommended Devices Two Rails Number of Stairs 12 Occupational Therapy: Current Status Upper Body Dressing Min Assist Lower Body Dressing Max Asst Bathing Max Asst Toileting Total Assist Toilet Transfer Mod Assist Eating Independent Social Work: Current Status Discharge Plan return home with home care svs and family support Potential for Family Training TBD Anticipated Discharge Home Destination Discharge With home care svs and family support Goals: Physical Therapy: Initial Goals Bed Mobility Assistance independent Transfer Moblility Assistance modified independent Transfer/Bed Mobility Rolling Walker Recommended Devices Ambulation Assistance modified independent Ambulation Assistive Devices Rolling Walker Number of Feet Patient 150 Ambulated Stairs Assistance supervision Stairs Recommended Devices Two Rails Number of Stairs 12 Occupational Therapy: Initial Goals Goals to be Completed in (Days 10-14 ) Upper Body Bathing Routine Independent Lower Body Bathing Routine Minimal Contact Assist Upper Body Dressing Routine Independent Lower Body Dressing Routine Modified Independent with Toilet Hygeine and Clothing Modified Independent with Management Routine Toilet Transfer Routine Modified Independent with Step-In Shower Transfer Supervision/Set Up Routine Functional Transfers for ADL Modified Independent with Grooming Routine Independent Feeding Routine Independent Pending Speech therapy evaluation. Social Work: Goals Discharge Plan return home with home care svs and family support Potential for Family Training TBD Anticipated Discharge Home Destination Discharge With home care svs and family support Care Plan: Care Plan ADL's - Improve/Maintain Start: 06/23/18 14:29 Freq: DAILY Status: Active Target: Protocol: Activity Type Activity Date Activity User E-Sign Co-Sign Detail Recorded Client Recorded Date Recorded By Document 06/23/18 14:29 [id number] 06/23/18 14:30 [id number] 06/23/18 14:29 PMRU Outcome: ADL's/ADL Transfers Orders/Interventions Occupational Therapy Evaluation & Treatment Communication Tool in Patient Room Patient to receive OT 5x/wk for 60-120 Therex min/day Self Care Management Group Therapy UE/LE ADL's with Assist Yes: min A ADL Transfers with Assist Yes: mod I Toileting: Transfers,Clothing Management Yes: mod I ,Hygeine w/Assist Progression Toward Outcome/Goals Progressing Outcome/Goals Met Pt presents with L hip pain , limited ability to bear weight through LLE, decreased endurance, balance deficits and L hip precautions that affect her ability to complete bathing, dressing, toileting, toilet transfers and showering. Pt would benefit from skilled OT intervention as part of an acute rehabilitation protocol to maximize independence with ADLs, ADL transfers and IADLs. Pt is agreeable to OT POC but needs encouragment to participate in therapies and to consider d/c plans. [ End ] DVT Prophylaxis- Improve/Maintain Start: 06/23/18 16:37 Freq: QSHIFT Status: Active Target: Protocol: Activity Type Activity Date Activity User E-Sign Co-Sign Detail Recorded Client Recorded Date Recorded By Document 06/24/18 00:41 [id number] 06/24/18 00:41 [id number] 06/24/18 00:41 PMRU Outcome: DVT Prophylaxis Outcome/Goals Remains Free of DVT Complies with DVT Prophylaxis /Treatment Demonstrates Knowledge of DVT Prevention/ Treatment TEDS Stockings on Every AM, Off at HS Progression Toward Outcome/Goals Progressing Discharge Planning - Improve/Maintain Start: 06/23/18 16:37 Freq: DAILY Status: Active Target: Protocol: Activity Type Activity Date Activity User E-Sign Co-Sign Detail Recorded Client Recorded Date Recorded By Document 06/24/18 00:38 [id number] [email or web address] 06/24/18 00:38 [id number] 06/24/18 00:38 PMRU Outcome: Discharge Planning Update Patient Family No Outcome/Goals Demonstrates Understanding of Discharge Plan Education-Improve/Maintain Start: 06/23/18 16:37 Freq: QSHIFT Status: Active Target: Protocol: Activity Type Activity Date Activity User E-Sign Co-Sign Detail Recorded Client Recorded Date Recorded By Document 06/24/18 00:41 [id number] 06/24/18 00:41 [id number] 06/24/18 00:41 PMRU Outcome: Education Outcome/Goals Encourage Questions Progression Toward Outcome/Goals Progressing /GI-Improve/Maintain Start: 06/23/18 16:37 Freq: QSHIFT Status: Active Target: Protocol: Activity Type Activity Date Activity User E-Sign Co-Sign Detail Recorded Client Recorded Date Recorded By Document 06/24/18 00:41 [id number] 06/24/18 00:41 [id number] 06/24/18 00:41 PMRU Outcome: Genitourinary/ Gastrointestinal Genitourinary- Outcome/Goals Maintain/ Achieve Adequate Urinary Output Gastrointestinal-Outcome/Goals Maintain/ Achieve Bowel Regularity in Accordance with Pt's Baseline Remain Free of Emesis Prevent Constipation Laxatives as Ordered Progression Toward Outcome/Goals - Progressing Progression Toward Outcome/Goals - GI Progressing Outcome/Goals Met Comment pt up to commode Medication Administration Start: 06/23/18 16:37 Freq: QSHIFT Status: Active Target: Protocol: Activity Type Activity Date Activity User E-Sign Co-Sign Detail Recorded Client Recorded Date Recorded By Document 06/24/18 00:41 [id number] 06/24/18 00:41 [id number] 06/24/18 00:41 PMRU Outcome: Medication Administration Assess Patient Knowledge/Teach Med Yes Education for all Meds Outcome/Goals Patient Independent with Medication Administration at Home Demonstrates Understanding Progression Towards Outcome/Goals Progressing Is Patient Going Home on Lovenox? No Pain/Comfort- Improve/Maintain Start: 06/23/18 16:37 Freq: QSHIFT Status: Active Target: Protocol: Activity Type Activity Date Activity User E-Sign Co-Sign Detail Recorded Client Recorded Date Recorded By Document 06/24/18 00:41 [id number] 06/24/18 00:41 [id number] 06/24/18 00:41 PMRU Outcome: Pain/Comfort Outcome/Goals Demonstrates Knowledge and Use of Available Comfort Measures Achieves Acceptable Comfort/Pain Level as Determined by Patient/Condit Maintain Comfort Level Allowing Patient to Fully Participate in Rehab Progression Toward Outcome/Goals Progressing Outcome/Goals Met Comment pt resting at this time Respiratory - Improve/Maintain Start: 06/23/18 16:37 Freq: QSHIFT Status: Active Target: Protocol: Activity Type Activity Date Activity User E-Sign Co-Sign Detail Recorded Client Recorded Date Recorded By Document 06/24/18 00:41 [id number] 06/24/18 00:41 [id number] 06/24/18 00:41 PMRU Outcome: Respiratory Does Patient Have a Trach No Outcome/Goals Maintain/ Improve O2 Sat per MD Order Maintain/ Improve Baseline Respiratory Status Maintain/ Improve Activity Tolerance Prevent Pneumonia/ Atelectasis Progression Toward Outcome/Goals Progressing Outcome/Goals Met Comment [address] Safety- Improve/Maintain Start: 06/23/18 16:37 Freq: QSHIFT Status: Active Target: Protocol: Activity Type Activity Date Activity User E-Sign Co-Sign Detail Recorded Client Recorded Date Recorded By Document 06/24/18 00:41 [id number] 06/24/18 00:41 [id number] 06/24/18 00:41 PMRU Outcome: Safety Outcome/Goals Cooperates with Safety Measures for Least Restrictive Environment Prevent Falls/ Injury Progression Toward Outcome/Goals Progressing Skin- Improve/Maintain Start: 06/23/18 16:37 Freq: QSHIFT Status: Active Target: Protocol: Activity Type Activity Date Activity User E-Sign Co-Sign Detail Recorded Client Recorded Date Recorded By Document 06/24/18 00:41 [id number] 06/24/18 00:41 [id number] 06/24/18 00:41 PMRU Outcome: Skin Skin Risk Level Medium Skin Orders Heels Off Bed Turn/Position q2hr While in Bed Outcome/Goals Maintain/ Improve Skin Intergrity Free from Decubitus Surgical Incisions Healing Progression Toward Outcome/Goals Progressing Medicine Note: Length of Stay: [2 weeks] Anticipated Discharge Destination: Home Tentative Discharge Date: [07/08/18] Discharged to: [home]
[2018-06-24] MEDS: Enoxaparin(*) 30 MG/0.3 ML SYR SUBCUT SCH (12:47)
[2018-06-24] MEDS: cefTRIAXone(*) 1 GM in NS 0.9% 50 ML* 50 ML IVPB SCH (12:52)
[2018-06-25] MEDS: Phenazopyridine TAB* 100 MG PO SCH (09:05)
[2018-06-25] MEDS: traMADol TAB* 50 MG PO PRN ×2 (09:05→22:16)
[2018-06-25] MEDS: Docusate CAP* 100 MG PO SCH ×2 (09:05→21:08)
[2018-06-25] MEDS: Sertraline* 25 MG TAB PO SCH (09:05)
--- NOTE | 2018-06-25 10:54 | PN ---
Progress Note Date of Service: 06/25/18 Note: JIAN DOBBINS was visited. Nursing and therapy notes read and reviewed. No chest pain, shortness of breath or abdominal pain. Completed speech cognitive evaluation yesterday and found to have moderate cognitive impairments affecting problem solving and memory. Has frequent attempts to void. Last night sat for 30 minutes and could not go. Current Medications: Active Medications Generic Name Dose Route Start Last Admin Trade Name Freq PRN Reason Stop Dose Admin Acetaminophen 650 mg 06/23/18 08:04 Tylenol Tab* PO Q4H PRN FEVER > 101 Al Hydrox/Mg Hydrox/Simethicone 30 ml 06/23/18 08:04 Maalox Plus* PO Q6H PRN INDIGESTION Bisacodyl 10 mg 06/23/18 08:04 Dulcolax Supp* [place] DAILY PRN CONSTIPATION Docusate Sodium 100 mg 06/23/18 09:00 06/25/18 09:05 Colace Cap* PO 100 mg BID BEA Administration Enoxaparin Sodium 30 mg 06/24/18 12:00 06/24/18 12:47 Lovenox(*) SUBCUT 30 mg DAILY@1200 BEA Administration Ceftriaxone Sodium 1 gm/ 50 mls @ 200 mls/hr 06/24/18 12:00 06/24/18 12:52 Sodium Chloride IVPB 06/25/18 23:59 200 mls/hr 1200 BEA Administration Magnesium Hydroxide 30 ml 06/23/18 08:04 Milk Of Magnesia Liq* PO Q6H PRN CONSTIPATION Phenazopyridine HCl 100 mg 06/23/18 14:00 06/25/18 09:05 Pyridium Tab* PO 100 mg TID BEA Administration Senna 2 tab 06/23/18 08:04 Senokot Tab* PO BEDTIME PRN CONSTIPATION Sertraline HCl 25 mg 06/23/18 09:00 06/25/18 09:05 Zoloft* PO 25 mg DAILY BEA Administration Tramadol HCl 50 mg 06/23/18 08:13 06/25/18 09:05 Ultram* PO 50 mg Q6H PRN Administration PAIN Vital Signs: Vital Signs Temp Pulse Resp BP Pulse Ox 98.8 F 88 22 123/52 94 06/25/18 06:10 06/25/18 06:10 06/25/18 09:05 06/25/18 06:10 06/25/18 07:39 Exam: GEN: no acute distress. Alert and appropriate. LUNGS: clear to auscultation bilaterally. CV: regular rate and rhythm ABD: + bowel sounds, soft, non-tender, non-distended EXT: No edema. NEURO: normal sensation BLE. Motor 5/5 BLE except pain limited left knee and hip. Assessment/Plan: 78-year-old woman, status post left hip fracture and total hip replacement. 1. Status post left hip fracture and total hip replacement. Continue weightbearing as tolerated LLE and left total hip precautions. PT/OT. F/u with Dr. Coffey. 2. DVT prophylaxis. Continue Lovenox 30 mg daily for 30 days. She will be taught self administration or train family member. 3. Acute postoperative anemia. CBC stable. f/u next Wednesday. 4. Chronic obstructive pulmonary disease. Continue oxygen at night (has at home) and during the day as needed. Try to wean off daytime oxygen. 5. Depression. Continue Zoloft. 6. Urinary tract infection. Her culture grew pansensitive E. Coli. Discontinue ceftriazone after today's dose. d/c pyridium. 7. Urethral stricture. She had cystoscopy and dilitation of a severe stricture on 01/16/[address] Bailon and did not follow up after. If unable to void , will bladder scan and straight cath or diez if needed. F/u after discharge with Dr. Bailon. 8. Impaired cognition: speech therapy. 9. Advanced directives. Full code. Her is her healthcare proxy if she cannot make decisions for herself. 10. Estimated LOS: 09/08/17 06/25/18 10:51
[2018-06-25] MEDS: cefTRIAXone(*) 1 GM in NS 0.9% 50 ML* 50 ML IVPB SCH (12:15)
[2018-06-25] MEDS: Enoxaparin(*) 30 MG/0.3 ML SYR SUBCUT SCH (12:52)
[2018-06-25] MEDS: Cephalexin CAP* 250 MG PO SCH ×2 (12:53→21:07)
[2018-06-26] MEDS: traMADol TAB* 50 MG PO PRN ×3 (04:30→21:04)
--- NOTE | 2018-06-26 09:16 | PN ---
Progress Note Date of Service: 06/26/18 Note: JIAN DOBBINS was visited. Nursing and therapy notes read and reviewed. She has frequent small volume voids. No chest pain, shortness of breath or abdominal pain. Her IV infiltrated yesterday and as a result last antibiotic doses were po. Current Medications: Active Medications Generic Name Dose Route Start Last Admin Trade Name Freq PRN Reason Stop Dose Admin Acetaminophen 650 mg 06/23/18 08:04 Tylenol Tab* PO Q4H PRN FEVER > 101 Al Hydrox/Mg Hydrox/Simethicone 30 ml 06/23/18 08:04 Maalox Plus* PO Q6H PRN INDIGESTION Bisacodyl 10 mg 06/23/18 08:04 Dulcolax Supp* [place] DAILY PRN CONSTIPATION Docusate Sodium 100 mg 06/23/18 09:00 06/25/18 21:08 Colace Cap* PO 100 mg BID BEA Administration Enoxaparin Sodium 30 mg 06/24/18 12:00 06/25/18 12:52 Lovenox(*) SUBCUT 30 mg DAILY@1200 BEA Administration Magnesium Hydroxide 30 ml 06/23/18 08:04 Milk Of Magnesia Liq* PO Q6H PRN CONSTIPATION Senna 2 tab 06/23/18 08:04 Senokot Tab* PO BEDTIME PRN CONSTIPATION Sertraline HCl 25 mg 06/23/18 09:00 06/25/18 09:05 Zoloft* PO 25 mg DAILY BEA Administration Tramadol HCl 50 mg 06/23/18 08:13 06/26/18 04:30 Ultram* PO 50 mg Q6H PRN Administration PAIN Vital Signs: Vital Signs Temp Pulse Resp BP Pulse Ox 98.5 F 86 20 135/62 98 06/26/18 05:59 06/26/18 05:59 06/26/18 06:30 06/26/18 05:59 06/26/18 05:59 Exam: GEN: no acute distress. Alert and appropriate. LUNGS: clear to auscultation bilaterally. CV: regular rate and rhythm ABD: + bowel sounds, soft, non-tender, non-distended EXT: Mild bilateral pedal edema. NEURO: normal sensation BLE. Motor 5/5 BLE except pain limited left knee and hip. Assessment/Plan: 78-year-old woman, status post left hip fracture and total hip replacement. 1. Status post left hip fracture and total hip replacement. Continue weight bearing as tolerated LLE and left total hip precautions. PT/OT. F/u with Dr. Coffey. 2. DVT prophylaxis. Continue Lovenox 30 mg daily for 30 days. She will be taught self administration or train family member. 3. Acute postoperative anemia. CBC stable. f/u next Wednesday. 4. Chronic obstructive pulmonary disease. Continue oxygen at night (has at home) and during the day as needed. Try to wean off daytime oxygen. 5. Depression. Continue Zoloft. 6. Urinary tract infection present on admission with pansensitive E. Coli: s/p ceftriazone and keflex. resolved. 7. h/o Urethral stricture. She had cystoscopy and dilitation of a severe stricture on 01/16/[address] Bailon and did not follow up after. Check at least 1 PVR to make sure she is emptying. If not, straight cath or diez if needed. F/ u after discharge with Dr. Bailon. 8. Impaired cognition: speech therapy. 9. Advanced directives. Full code. Her is her healthcare proxy if she cannot make decisions for herself. 10. Estimated LOS: 09/08/17 06/26/18 09:13
[2018-06-26] MEDS: Docusate CAP* 100 MG PO SCH ×2 (09:32→21:05)
[2018-06-26] MEDS: Sertraline* 25 MG TAB PO SCH (09:32)
[2018-06-26] MEDS: Enoxaparin(*) 30 MG/0.3 ML SYR SUBCUT SCH (12:41)
[2018-06-26] MEDS: Magnesium Hydroxide LIQ* 30 ML UDC PO PRN (15:54)
[2018-06-26] MEDS: Senna TAB PO PRN (18:56)
[2018-06-27] MEDS: Acetaminophen TAB* 325 MG PO PRN (01:05)
[2018-06-27] MEDS: traMADol TAB* 50 MG PO PRN ×3 (03:45→22:56)
[2018-06-27] MEDS: Docusate CAP* 100 MG PO SCH ×2 (10:24→20:20)
[2018-06-27] MEDS: Sertraline* 25 MG TAB PO SCH (10:24)
[2018-06-27] MEDS: Enoxaparin(*) 30 MG/0.3 ML SYR SUBCUT SCH (12:51)
[2018-06-27] MEDS: HYDROcodone/ACETAMIN 5-325 MG* 1 TAB PO PRN (14:37)
[2018-06-27] MEDS ORDERED: Albuterol HFA INHALER* 8 gm MDI INH PRN (18:55)
--- NOTE | 2018-06-27 18:57 | PN ---
Progress Note Date of Service: 06/27/18 Note: JIAN DOBBINS was visited. Therapy notes read and reviewed. She feels like she is having a lot of pain. She was not on any pain medications other than Tramadol. I wrote for Wing. Current Medications: Active Medications Generic Name Dose Route Start Last Admin Trade Name Freq PRN Reason Stop Dose Admin Acetaminophen 650 mg 06/23/18 08:04 06/27/18 01:05 Tylenol Tab* PO 650 mg Q4H PRN Administration FEVER > 101 Hydrocodone Bitart/Acetaminophen 0.5 tab 06/27/18 13:09 06/27/18 14:37 Wing 5-325 Tab* PO 0.5 tab Q4H PRN Administration PAIN - MODERATE Hydrocodone Bitart/Acetaminophen 1 tab 06/27/18 13:10 Wing 5-325 Tab* PO Q4H PRN PAIN - MODERATE TO SEVERE Al Hydrox/Mg Hydrox/Simethicone 30 ml 06/23/18 08:04 Maalox Plus* PO Q6H PRN INDIGESTION Albuterol 2 puff 06/27/18 18:55 Ventolin Hfa Inhaler* INH Q6H PRN SOB/WHEEZING Bisacodyl 10 mg 06/23/18 08:04 Dulcolax Supp* [place] DAILY PRN CONSTIPATION Docusate Sodium 100 mg 06/23/18 09:00 06/27/18 10:24 Colace Cap* PO 100 mg BID BEA Administration Enoxaparin Sodium 30 mg 06/24/18 12:00 06/27/18 12:51 Lovenox(*) SUBCUT 30 mg DAILY@1200 BEA Administration Magnesium Hydroxide 30 ml 06/23/18 08:04 06/26/18 15:54 Milk Of Magnesia Liq* PO 30 ml Q6H PRN Administration CONSTIPATION Senna 2 tab 06/23/18 08:04 06/26/18 18:56 Senokot Tab* PO 2 tab BEDTIME PRN Administration CONSTIPATION Sertraline HCl 25 mg 06/23/18 09:00 06/27/18 10:24 Zoloft* PO 25 mg DAILY BEA Administration Tramadol HCl 50 mg 06/23/18 08:13 06/27/18 10:24 Ultram* PO 50 mg Q6H PRN Administration PAIN Vital Signs: Vital Signs Temp Pulse Resp BP Pulse Ox 98.4 F 87 20 98/55 96 06/27/18 15:27 06/27/18 15:27 06/27/18 18:09 06/27/18 15:27 06/27/18 15:27 Exam: GENERAL: no acute distress. Alert and appropriate. LUNGS: clear to auscultation bilaterally. HEART: regular rate and rhythm ABDOMEN: + bowel sounds, soft, non-tender, non-distended EXTREMITIES: Mild bilateral pedal edema. NEUROLOGIC: normal sensation BLE. Motor 5/5 BLE except pain limited left knee and hip. Assessment/Plan: 78-year-old woman, status post left hip fracture and total hip replacement. 1. Status post left hip fracture and total hip replacement. Continue weight bearing as tolerated LLE and left total hip precautions. PT/OT. F/u with Dr. Coffey. 2. DVT prophylaxis. Continue Lovenox 30 mg daily for 30 days. She will be taught self administration or train family member. 3. Acute postoperative anemia. CBC stable. f/u next Wednesday. 4. Chronic obstructive pulmonary disease. Continue oxygen at night (has at home) and during the day as needed. Try to wean off daytime oxygen. 5. Depression. Continue Zoloft. 6. Urinary tract infection present on admission with pansensitive E. Coli: s/p ceftriazone and keflex. resolved. 7. h/o Urethral stricture. She had cystoscopy and dilitation of a severe stricture on 01/16/[address] Bailon and did not follow up after. Check at least 1 PVR to make sure she is emptying. If not, straight cath or diez if needed. F/ u after discharge with Dr. Bailon. 8. Impaired cognition: speech therapy. 9. Advanced directives. Full code. Her is her healthcare proxy if she cannot make decisions for herself. 10. Estimated LOS: 09/08/17 06/26/18 09:13
[2018-06-27] MEDS ORDERED: Spiriva Inhaler DEVICE* 1 EACH DEVICE SCH (19:00)
[2018-06-27] MEDS: Senna TAB PO PRN (20:20)
[2018-06-27] MEDS: Magnesium Hydroxide LIQ* 30 ML UDC PO PRN (21:54)
[2018-06-28] MEDS: HYDROcodone/ACETAMIN 5-325 MG* 1 TAB PO PRN ×5 (02:00→19:15)
[2018-06-28] MEDS: Acetaminophen TAB* 325 MG PO PRN ×2 (03:40→23:56)
[2018-06-28] MEDS: traMADol TAB* 50 MG PO PRN (05:22)
[2018-06-28] MEDS: Tiotropium CAP.INH* CAP.INH/18 MCG (USE ORDER SET !) INH SCH (08:58)
[2018-06-28] MEDS: Sertraline* 25 MG TAB PO SCH (08:58)
[2018-06-28] MEDS: Docusate CAP* 100 MG PO SCH ×2 (08:58→19:09)
[2018-06-28] MEDS ORDERED: HYDROcodone/ACETAMIN 5-325 MG* 1 TAB PO PRN (12:24)
--- NOTE | 2018-06-28 12:49 | PMRUTEAM ---
PMRU: Team Meeting Current Status: Nursing: Current Status Skin Deviations [Left Hip] Incision Skin Deviation Description [ intact and healing Left Hip] Physical Therapy: Current Status Bed Mobility Assistance Mod Assist,2 or More Person Assist Transfer Moblility Assistance 2 or More Person Assist Transfer/Bed Mobility EZ Stand Recommended Devices Ambulation Assistance Unable Ambulation Assistive Devices Rolling Walker Number of Feet Patient 4 Ambulated Stairs Assistance Not Tested Stairs Recommended Devices Two Rails Number of Stairs 12 Curb Not Tested Occupational Therapy: Current Status Upper Body Dressing Min Assist Lower Body Dressing Total Assist,2 Person Assist Bathing Max Asst,2 Person Assist Toileting Total Assist,2 Person Assist Toileting Progress EZ stand Toilet Transfer Total Assist,2 Person Assist Toilet Transfer Progress EZ stand Shower Transfer Progress Not attempted Eating Supervision Eating Progress set-up Rec Therapy: Current Status Summary of Assessment and RT assessment complete and pt. is aware of RT Clinical Impression services. Pt. tends to have visitors in the afternoons and is involved in leisure visits from this freelance writer. Treatment Goals Pt. will engage in leisure activities while on the unit. Treatment Plan Provide RT services and encourage involvement. Social Work: Current Status Discharge Plan return home with home care svs and family support Potential for Family Training pt's is involved and supportive Anticipated Discharge Home Destination Discharge With home care svs and family support Nutrition: Current Status Monitoring full assessment planned for 06/30. Had a fair appetite until yesterday, now w/poor intake primarily d/t pain and c/o constiption (had BM 06/26; appropriate bowel meds given prn). Has denied n/v. Labs reviewed upon adm 06/24; unremarkable. Will encourage po intake. Regular diet appropriate Speech: Current Status Assessment Patient is progressing as expected. Patient required maximum skilled instruction cueing to verbalize steps to safely stand to walker, I'll verbalized steps to sit safely, and to recall more than 2 of 6 pictures after study. Speech Current Status Goal 1 Moderate impairment Speech Goal 2 Current Status Moderate impairment Goals: Physical Therapy: Updated Goals Transfer/Bed Mobility Rolling Walker Recommended Devices Occupational Therapy: Initial Goals Goals to be Completed in (Days 10-14 ) Upper Body Bathing Routine Independent Lower Body Bathing Routine Minimal Contact Assist Upper Body Dressing Routine Independent Lower Body Dressing Routine Modified Independent with Toilet Hygeine and Clothing Modified Independent with Management Routine Toilet Transfer Routine Modified Independent with Step-In Shower Transfer Supervision/Set Up Routine Functional Transfers for ADL Modified Independent with Grooming Routine Independent Feeding Routine Independent Nutrition: Goals Intervention Goals 1. improved and adequate po intake to promote healing and preserve lean body mass 2. achieve and maintain regular bowel pattern without constipation (or diarrhea) Speech: Goals Speech Goal 1 Memory Speech Evaluation Status Goal Moderate impairment 1 Speech Current Status Goal 1 Moderate impairment Goal 1 Comments Long-Term Memory Goal: Pt will use compensatory strategies to encode and retrieve 4/4 new items after delay of 30 minutes, Independently, for independence in mobility safety, ADLs and community access. Short-term Memory Goal: Pt will use compensatory strategies to encode and retrieve 3/4 new items after delay of 5 minutes, given Moderate skilled instruction and cueing. Status: Progressing as expected. [employer] instructed patient to express personal associations with 6 pictures, and to recall 2 at a time immediately and after brief distraction; patient required cues to recall more than 2 after 1 minute intervals. Speech Goal 2 Problem solving Speech Goal 2 Evaluation Moderate impairment Status Speech Goal 2 Current Status Moderate impairment Speech Goal 2 Comments Problem Solving Goals: Long-Term Goal: Pt will use compensatory strategies to solve moderately complex routine problems, with 100% accuracy, Independently, for personal safety and ADLs such as shopping, time and money management. Short-Term Goal: Pt will use compensatory strategies to solve simple routine problems, with 80% accuracy, given Moderate skilled instruction and cueing, for personal safety and ADLs such as shopping, time and money management. Status: Progressing as expected. [employer] provided printed directions for standing to, and sitting from, a walker; instructed patient to read aloud, and to recall each step immediately. [employer] instructed patient to direct [employer] to stand or sit, and did exactly as told to demonstate the consequences. Patient required maximal cueing to recognize the next step after each step for standing, and I'ly told steps for safely sitting. Social Work: Goals Discharge Plan return home with home care svs and family support Potential for Family Training pt's is involved and supportive Anticipated Discharge Home Destination Discharge With home care svs and family support Care Plan: Care Plan ADL's - Improve/Maintain Start: 06/23/18 14:29 Freq: DAILY Status: Active Target: Protocol: Activity Type Activity Date Activity User E-Sign Co-Sign Detail Recorded Client Recorded Date Recorded By Document 06/28/18 10:26 [id number] 06/28/18 10:26 [id number] 06/28/18 10:26 PMRU Outcome: ADL's/ADL Transfers Orders/Interventions Occupational Therapy Evaluation & Treatment Communication Tool in Patient Room Patient to receive OT 5x/wk for 60-120 Therex min/day Self Care Management Group Therapy UE/LE ADL's with Assist Yes: min A ADL Transfers with Assist Yes: mod I Toileting: Transfers,Clothing Management Yes: mod I ,Hygeine w/Assist Progression Toward Outcome/Goals Progressing Outcome/Goals Met Pt was transferred via EZ stand today d/t ongoing difficulty with transfers over night and inability to bear weight through LLE. Pt was perscribed different pain medication last night but she continues to struggle. Transport Rn to discuss concerns in team meeting. Communication-Improve/Maintain Start: 06/27/18 16:42 Freq: DAILY Status: Active Target: Protocol: Activity Type Activity Date Activity User E-Sign Co-Sign Detail Recorded Client Recorded Date Recorded By Document 06/27/18 16:46 [id number] [email or web address] 06/27/18 16:46 [id number] 06/27/18 16:46 PMRU Outcome: Communication/Cognitive Status Other Outcomes/Goals Long-Term Memory Goal: Pt will use compensatory strategies to encode and retrieve 4/4 new items after delay of 30 minutes, Independently, for independence in mobility safety, ADLs and community access. Short-term Memory Goal: Pt will use compensatory strategies to encode and retrieve 3/4 new items after delay of 5 minutes, given Moderate skilled instruction and cueing. Status: Progressing as expected. Long-Term Problem Solving Goal: Pt will use compensatory strategies to solve moderately complex routine problems, with 100% accuracy, Independently, for personal safety and ADLs such as shopping, time and money management. Short-Term Problem Solving Goal: Pt will use compensatory strategies to solve simple routine problems, with 80% accuracy, given Moderate skilled instruction and cueing, for personal safety and ADLs such as shopping, time and money management. Status: Progressing as expected. Progression Toward Outcomes/Goals Progressing Outcome/Goals Met Comment 06/27/2018: Patient is progressing as expected. Patient required maximum skilled instruction cueing to verbalize steps to safely stand to walker , I'll verbalized steps to sit safely, and to recall more than 2 of 6 pictures after study. DVT Prophylaxis- Improve/Maintain Start: 06/23/18 16:37 Freq: QSHIFT Status: Active Target: Protocol: Activity Type Activity Date Activity User E-Sign Co-Sign Detail Recorded Client Recorded Date Recorded By Document 06/28/18 10:52 [id number] [id number] 06/28/18 10:53 [id number] 06/28/18 10:52 PMRU Outcome: DVT Prophylaxis Outcome/Goals Remains Free of DVT Complies with DVT Prophylaxis /Treatment Demonstrates Knowledge of DVT Prevention/ Treatment TEDS Stockings on Every AM, Off at HS Progression Toward Outcome/Goals Progressing Discharge Planning - Improve/Maintain Start: 06/23/18 16:37 Freq: DAILY Status: Active Target: Protocol: Activity Type Activity Date Activity User E-Sign Co-Sign Detail Recorded Client Recorded Date Recorded By Document 06/28/18 00:35 [id number] 06/28/18 00:36 [id number] 06/28/18 00:35 PMRU Outcome: Discharge Planning Update Patient Family No Outcome/Goals Demonstrates Understanding of Discharge Plan Education-Improve/Maintain Start: 06/23/18 16:37 Freq: QSHIFT Status: Active Target: Protocol: Activity Type Activity Date Activity User E-Sign Co-Sign Detail Recorded Client Recorded Date Recorded By Document 06/28/18 10:52 [id number] [id number] 06/28/18 10:53 [id number] 06/28/18 10:52 PMRU Outcome: Education Outcome/Goals Encourage Questions Progression Toward Outcome/Goals Progressing /GI-Improve/Maintain Start: 06/23/18 16:37 Freq: QSHIFT Status: Active Target: Protocol: Activity Type Activity Date Activity User E-Sign Co-Sign Detail Recorded Client Recorded Date Recorded By Document 06/28/18 10:52 [id number] [id number] 06/28/18 10:53 [id number] 06/28/18 10:52 PMRU Outcome: Genitourinary/ Gastrointestinal Genitourinary- Outcome/Goals Maintain/ Achieve Adequate Urinary Output Gastrointestinal-Outcome/Goals Maintain/ Achieve Bowel Regularity in Accordance with Pt's Baseline Remain Free of Emesis Prevent Constipation Laxatives as Ordered Progression Toward Outcome/Goals - Progressing Progression Toward Outcome/Goals - GI Progressing Outcome/Goals Met Comment encouraged to increase po intake Medication Administration Start: 06/23/18 16:37 Freq: QSHIFT Status: Active Target: Protocol: Activity Type Activity Date Activity User E-Sign Co-Sign Detail Recorded Client Recorded Date Recorded By Document 06/28/18 10:52 [id number] 06/28/18 10:53 06/28/18 10:52 PMRU Outcome: Medication Administration Assess Patient Knowledge/Teach Med Yes Education for all Meds Outcome/Goals Patient Independent with Medication Administration at Home Demonstrates Understanding Progression Towards Outcome/Goals Progressing Is Patient Going Home on Lovenox? No Pain/Comfort- Improve/Maintain Start: 06/23/18 16:37 Freq: QSHIFT Status: Active Target: Protocol: Activity Type Activity Date Activity User E-Sign Co-Sign Detail Recorded Client Recorded Date Recorded By Document 06/28/18 10:52 [id number] [email or web address] 06/28/18 10:53 [id number] 06/28/18 10:52 PMRU Outcome: Pain/Comfort Outcome/Goals Demonstrates Knowledge and Use of Available Comfort Measures Achieves Acceptable Comfort/Pain Level as Determined by Patient/Condit Maintain Comfort Level Allowing Patient to Fully Participate in Rehab Progression Toward Outcome/Goals Progressing Outcome/Goals Met Comment norco 1 tab given this am Respiratory - Improve/Maintain Start: 06/23/18 16:37 Freq: QSHIFT Status: Active Target: Protocol: Activity Type Activity Date Activity User E-Sign Co-Sign Detail Recorded Client Recorded Date Recorded By Document 06/28/18 10:52 [id number] 06/28/18 10:53 [id number] 06/28/18 10:52 PMRU Outcome: Respiratory Does Patient Have a Trach No Outcome/Goals Maintain/ Improve O2 Sat per MD Order Maintain/ Improve Baseline Respiratory Status Maintain/ Improve Activity Tolerance Prevent Pneumonia/ Atelectasis Progression Toward Outcome/Goals Progressing Outcome/Goals Met Comment O2 in place Safety- Improve/Maintain Start: 06/23/18 16:37 Freq: QSHIFT Status: Active Target: Protocol: Activity Type Activity Date Activity User E-Sign Co-Sign Detail Recorded Client Recorded Date Recorded By Document 06/28/18 10:52 [id number] 06/28/18 10:53 [id number] 06/28/18 10:52 PMRU Outcome: Safety Outcome/Goals Cooperates with Safety Measures for Least Restrictive Environment Prevent Falls/ Injury Progression Toward Outcome/Goals Progressing Outcome/Goals Met Comment PA on Skin- Improve/Maintain Start: 06/23/18 16:37 Freq: QSHIFT Status: Active Target: Protocol: Activity Type Activity Date Activity User E-Sign Co-Sign Detail Recorded Client Recorded Date Recorded By Document 06/28/18 10:52 [id number] [email or web address] 06/28/18 10:53 [id number] 06/28/18 10:52 PMRU Outcome: Skin Skin Risk Level Medium Skin Orders Heels Off Bed Turn/Position q2hr While in Bed Outcome/Goals Maintain/ Improve Skin Intergrity Free from Decubitus Surgical Incisions Healing Progression Toward Outcome/Goals Progressing Medicine Note: Length of Stay: 2 1/2 weeks Anticipated Discharge Destination: Home Tentative Discharge Date: 07/15/18 Discharged to: home
[2018-06-28] MEDS: Enoxaparin(*) 30 MG/0.3 ML SYR SUBCUT SCH (13:08)
--- NOTE | 2018-06-28 18:46 | PN ---
Progress Note Date of Service: 06/28/18 Note: JIAN DOBBINS was visited. Therapy notes read and reviewed. She had a lot of left thigh pain today unresponsive to [place], but was getting only one. An x- ray was ordered and it showed a periprosthetic fracture of the lesser trochanter. She was made NPO and NWB on the left. Ortho will see her tomorrow. She was discussed in interdisciplinary team rounds. Current Medications: Active Medications Generic Name Dose Route Start Last Admin Trade Name Freq PRN Reason Stop Dose Admin Acetaminophen 650 mg 06/23/18 08:04 06/28/18 03:40 Tylenol Tab* PO 650 mg Q4H PRN Administration FEVER > 101 Hydrocodone Bitart/Acetaminophen 1 tab 06/27/18 13:10 06/28/18 15:18 [place] 5-325 Tab* PO 1 tab Q4H PRN Administration PAIN - MODERATE TO SEVERE Hydrocodone Bitart/Acetaminophen 2 tab 06/28/18 12:24 [place] 5-325 Tab* PO Q4H PRN PAIN - SEVERE Al Hydrox/Mg Hydrox/Simethicone 30 ml 06/23/18 08:04 Maalox Plus* PO Q6H PRN INDIGESTION Albuterol 2 puff 06/27/18 18:55 06/27/18 20:18 Ventolin Hfa Inhaler* INH 2 puff Q6H PRN Administration SOB/WHEEZING Bisacodyl 10 mg 06/23/18 08:04 06/28/18 11:09 Dulcolax Supp* ND 10 mg DAILY PRN Administration CONSTIPATION Device 1 each 06/27/18 19:00 Tiotropium Inhaler Device* .SEE ORDER .USE w/ SPIRIVA CAPS BEA Docusate Sodium 100 mg 06/23/18 09:00 06/28/18 08:58 Colace Cap* PO 100 mg BID BEA Administration Magnesium Hydroxide 30 ml 06/23/18 08:04 06/27/18 21:54 Milk Of Magnesia Liq* PO 30 ml Q6H PRN Administration CONSTIPATION Senna 2 tab 06/23/18 08:04 06/27/18 20:20 Senokot Tab* PO 2 tab BEDTIME PRN Administration CONSTIPATION Sertraline HCl 25 mg 06/23/18 09:00 06/28/18 08:58 Zoloft* PO 25 mg DAILY BEA Administration Tiotropium Walker 1 cap 06/28/18 09:00 06/28/18 08:58 Spiriva Cap.Inh* INH 1 inh DAILY BEA Administration Vital Signs: Vital Signs Temp Pulse Resp BP Pulse Ox 98.2 F 91 18 102/56 95 06/28/18 15:13 06/28/18 15:13 06/28/18 17:59 06/28/18 15:13 06/28/18 15:53 Exam: GENERAL: no acute distress. Alert and appropriate. LUNGS: clear to auscultation bilaterally. HEART: regular rate and rhythm ABDOMEN: + bowel sounds, soft, non-tender, non-distended EXTREMITIES: Mild bilateral pedal edema. Swelling left thigh NEUROLOGIC: normal sensation BLE. Motor 5/5 BLE except pain limited left knee and hip. Assessment/Plan: 78-year-old woman, status post left hip fracture and total hip replacement. Now Periprosthetic fracture 1. Left THR after fracture; periprosthetic fracture: NWB LLE. F/u with Dr. Coffey. NPO 2. DVT prophylaxis. Holding Lovenox 3. Analgesia: Now on [place]. D/C Tramadol 4. Acute postoperative anemia. CBC stable. f/u next Wednesday. 5. Chronic obstructive pulmonary disease. Continue oxygen at night (has at home) and during the day as needed. Spiriva. Albuterol HFA 6. Depression. Continue Zoloft. 7. h/o Urethral stricture. Had cystoscopy and dilitation of a severe stricture on 01/16/[address] Bailon but did not follow up after. F/u after discharge with Dr. Bailon. 8. Impaired cognition: speech therapy. 9. Advanced directives. Full code. Her is her healthcare proxy if she cannot make decisions for herself. 06/28/18 18:47
[2018-06-28] MEDS ORDERED: Methocarbamol TAB* 500 MG PO PRN (20:46)
[2018-06-29] MEDS: HYDROcodone/ACETAMIN 5-325 MG* 1 TAB PO PRN ×2 (01:23→05:08)
[2018-06-29 06:59] LABS: ABS Basophils 0 10^3/ul (0-0.2); ABS Eosinophils 0.2 10^3/ul (0-0.6); ABS Lymphocytes 0.3 10^3/ul (1.0-4.8); ABS Monocytes 0.5 10^3/ul (0-0.8); ABS Neutrophils 3.7 10^3/ul (1.5-7.7); ABS Nucleated RBC 0 10^3/ul; Eosinophil % 3.3 %; Hematocrit 28 % (35-47); Hemoglobin 9.2 g/dl (12.0-16.0); Lymphocyte % 6.9 %; Mean Corpuscular HGB Conc 33 g/dl (31-36); Mean Corpuscular Hemoglobin 31 pg (27-31); Mean Corpuscular Volume 92 fL (80-97); Nucleated Red Blood Cells % 0; Platelet Count 318 10^3/ul (150-450); Red Blood Count 3.01 10^6/ul (4.00-5.40); Red Cell Distribution Width 14 % (10.5-15); White Blood Count 4.7 10^3/ul (3.5-10.8)
[2018-06-29 07:03] LABS: INR 0.99 (0.77-1.02)
[2018-06-29 07:24] LABS: EGFR Non-African American 137.9 (>60)
--- NOTE | 2018-06-29 07:47 | PN ---
Progress Note - Progress Note Date of Service: 06/29/18 SOAP: Subjective: Called to see patient for L periprosthetic femur fracture on xray. Per patient and nursing she has had increased pain for 48 hours without known fall. Xrays and CT obtained show L periprosthetic femur fracture. Objective: Vital Signs: Temp Pulse Resp BP Pulse Ox 98.8 F 84 18 121/56 95 06/29/18 05:01 06/29/18 05:01 06/29/18 06:45 06/29/18 05:01 06/29/18 05:01 Laboratory Results - last 24 hr 06/29/18 06/29/18 06/29/18 06:36 06:36 06:36 WBC 4.7 RBC 3.01 L Hgb 9.2 L Hct 28 L MCV 92 MCH 31 MCHC 33 RDW 14 Plt Count 318 MPV 7.0 L Neut % (Auto) 78.4 Lymph % (Auto) 6.9 Ellsworth % (Auto) 10.9 Eos % (Auto) 3.3 Baso % (Auto) 0.5 Absolute Neuts (auto) 3.7 Absolute Lymphs (auto) 0.3 L Absolute Monos (auto) 0.5 Absolute Eos (auto) 0.2 Absolute Basos (auto) 0 Absolute Nucleated RBC 0 Nucleated RBC % 0 INR (Anticoag Therapy) 0.99 Sodium 137 Potassium 4.4 Chloride 102 Carbon Dioxide 31 Anion Gap 4 BUN 8 Creatinine 0.44 L Est GFR ( Amer) 166.9 Est GFR (Non-Af Amer) 137.9 BUN/Creatinine Ratio 18.2 Glucose 89 Calcium 8.5 L Total Bilirubin 0.70 AST 19 ALT 16 Alkaline Phosphatase 78 Total Protein 5.0 L Albumin 2.7 L Globulin 2.3 Albumin/Globulin Ratio 1.2 LLE - incision healing well. thigh with ttp, no swelling. Pain with hip flexion. distally nvi. Assessment: 78 yo F 1 week s/p LTHA for femoral neck fracture. Pt. initially progressed with PT, now 48 hours of pain and xrays show periprosthetic femur fracture. Plan: Discussed additional surgery at length with the patient and family, at least 30 minutes of counseling. Pt. and family wish to proceed with revision of femoral stem and ORIF at this time. They understand patient is at increased risk of additional periprosthetic fracture, infection, dislocation, etc. They wish to proceed. npo Plan orif and revision L periprosthetic femur fracture today with next available OR.
[2018-06-29] MEDS: Tiotropium CAP.INH* CAP.INH/18 MCG (USE ORDER SET !) INH SCH (08:52)
[2018-06-29] MEDS: Docusate CAP* 100 MG PO SCH (08:52)
[2018-06-29] MEDS: Sertraline* 25 MG TAB PO SCH (08:52)
[2018-06-29 15:55] VITALS: BP 111/53
[2018-06-29] MEDS ORDERED: Phenylephrine INJ* 10 MG/ML 1 ML VIAL (10 MG) ONE ×2 (18:41→20:39)
[2018-06-29] MEDS ORDERED: EPHEDrine (Pressors)* 50 MG/ML VIAL ONE (18:56)
[2018-06-29] MEDS ORDERED: Midazolam* 1 MG/ML 2 ML VIAL (2 MG) ONE (20:05)
[2018-06-29] MEDS ORDERED: fentaNYL* 50 MCG/ML 2 ML VIAL (100 MCG VIAL) ONE (20:47)
== END 2018-06-29 16:59 | disposition short-term general hospital (02) | DRG 560 ==
LOC: PMRU 09:51
PROVIDERS: ADMIT Physical Medicine & Rehabilitation; ATTEND Physical Medicine & Rehabilitation
PROC: F07Z5ZZ Bed Mobility Treatment (ICD-10-PCS; principal; 2018-06-23)
PROC: F07Z9ZZ Gait Training/Functional Ambulation Treatment (ICD-10-PCS; 2018-06-23)
PROC: F07Z8ZZ Transfer Training Treatment (ICD-10-PCS; 2018-06-23)
PROC: F08Z0ZZ Bathing/Showering Techniques Treatment (ICD-10-PCS; 2018-06-23)
PROC: F08Z1ZZ Dressing Techniques Treatment (ICD-10-PCS; 2018-06-23)
PROC: F08Z3ZZ Feeding/Eating Treatment (ICD-10-PCS; 2018-06-23)
PROC: F06Z6ZZ Communicative/Cognitive Integration Skills Treatment (ICD-10-PCS; 2018-06-23)
DX: Z47.1 Aftercare following joint replacement surgery (principal); N39.0 Urinary tract infection, site not specified; D62 Acute posthemorrhagic anemia; M97.02XA Periprosthetic fracture around internal prosthetic left hip joint, initial encounter; J44.9 Chronic obstructive pulmonary disease, unspecified; Z99.81 Dependence on supplemental oxygen; S72.102D Unspecified trochanteric fracture of left femur, subsequent encounter for closed fracture with routine healing; Z96.642 Presence of left artificial hip joint; W18.30XD Fall on same level, unspecified, subsequent encounter; F32.9 Major depressive disorder, single episode, unspecified; N35.92 Unspecified urethral stricture, female; B96.20 Unspecified Escherichia coli [E. coli] as the cause of diseases classified elsewhere; G31.84 Mild cognitive impairment of uncertain or unknown etiology; Z85.118 Personal history of other malignant neoplasm of bronchus and lung; Z79.1 Long term (current) use of non-steroidal anti-inflammatories (NSAID); Z79.899 Other long term (current) drug therapy; Z80.1 Family history of malignant neoplasm of trachea, bronchus and lung; Z80.7 Family history of other malignant neoplasms of lymphoid, hematopoietic and related tissues; Z87.891 Personal history of nicotine dependence
CPT/HCPCS: 36415; 72170; 72192; 80053; 85025; 85610; 86850; 86900; 86901; 86922; A9270-GY; J0696; J1650; J2250; J3010; P9040

== ENCOUNTER 2018-06-29 14:00 | Inpatient (IN) | payer MEDICARE, BC ==
[2018-06-29] MEDS ORDERED: ceFAZolin 2 GM PREMIX in ORs 2 GM/50 ML BAG IVPB ONE (16:38)
[2018-06-29] MEDS ORDERED: Bupivacaine 0.5% PF 10 ML VIAL INJ ONE (17:30)
[2018-06-29] MEDS ORDERED: fentaNYL* 50 MCG/ML 2 ML VIAL (100 MCG VIAL) ONE ×2 (17:55→22:34)
[2018-06-29] MEDS ORDERED: Midazolam* 1 MG/ML 5 ML VIAL (5 MG) ONE (17:55)
[2018-06-29] MEDS ORDERED: diPHENhydraMINE PO* 25 MG PO PRN (21:39)
[2018-06-29] MEDS ORDERED: Magnesium Hydroxide LIQ* 30 ML UDC PO PRN (21:39)
[2018-06-29] MEDS ORDERED: diPHENhydraMINE IV* 50 MG/ML 1 ml VIAL (BENADRYL) IV PRN (21:39)
[2018-06-29] MEDS ORDERED: Ondansetron INJ* 2 MG/ML VIAL IV PRN ×2 (21:39)
[2018-06-29] MEDS ORDERED: Morphine VIAL* 4 MG/ML VIAL (1 ml vial) IV PRN (21:39)
[2018-06-29] MEDS ORDERED: oxyCODONE/Acetamin 5/325 MG* TAB PO PRN (21:39)
[2018-06-29] MEDS ORDERED: Naloxone* 0.4 MG/ML 1 ML VIAL IV PRN (21:39)
[2018-06-29] MEDS ORDERED: HYDROcodone/ACETAMIN 5-325 MG* 1 TAB PO PRN (21:39)
[2018-06-29] MEDS ORDERED: Ondansetron ODT TAB* 4 MG PO PRN (21:39)
[2018-06-29] MEDS ORDERED: Methocarbamol TAB* 500 MG PO PRN (21:44)
[2018-06-29] MEDS ORDERED: Albuterol 2.5 MG/3 ML NEB.SOL* (0.083%) INH PRN (21:44)
[2018-06-29 22:26] LABS: Hematocrit 33 % (35-47); Hemoglobin 11.1 g/dl (12.0-16.0)
[2018-06-29] MEDS ORDERED: HYDROcodone/ACETAMIN 5-325 MG* 1 TAB ONE (22:31)
[2018-06-29] MEDS: fentaNYL* 50 MCG/ML 2 ML VIAL (100 MCG VIAL) IV PRN ×4 (22:36→23:04)
[2018-06-29] MEDS: Acetaminophen TAB* 325 MG PO SCH (23:15)
[2018-06-29] MEDS: traMADol TAB* 50 MG PO PRN (23:58)
[2018-06-30] MEDS: ceFAZolin 1 GM ADVAN(*) 1 GM in NS 0.9% 50 ML* 50 ML IVPB SCH ×2 (01:38→03:52)
[2018-06-30] MEDS: oxyCODONE/Acetamin 5/325 MG* TAB PO PRN ×3 (01:45→18:57)
[2018-06-30] MEDS: oxyCODONE TAB* 5 MG TAB PO PRN (04:17)
[2018-06-30] MEDS: Acetaminophen TAB* 325 MG PO SCH ×3 (05:32→21:47)
[2018-06-30 06:50] LABS: Hematocrit 26 % (35-47); Hemoglobin 8.7 g/dl (12.0-16.0); Mean Platelet Volume 7.1 fL (7.4-10.4); Platelet Count 298 10^3/ul (150-450)
[2018-06-30 07:05] LABS: EGFR Non-African American 137.9 (>60)
[2018-06-30] MEDS: Docusate CAP* 100 MG PO SCH ×2 (08:45→21:44)
[2018-06-30] MEDS: Tiotropium CAP.INH* CAP.INH/18 MCG (USE ORDER SET !) INH SCH (08:45)
[2018-06-30] MEDS: Sertraline* 25 MG TAB PO SCH (08:45)
[2018-06-30] MEDS: Magnesium Hydroxide LIQ* 30 ML UDC PO SCH ×2 (08:45→21:45)
[2018-06-30] MEDS ORDERED: Spiriva Inhaler DEVICE* 1 EACH DEVICE INH ONE (09:00)
[2018-06-30] MEDS ORDERED: Sertraline* 25 MG TAB PO SCH (09:00)
--- NOTE | 2018-06-30 09:20 | PN ---
Progress Note - Progress Note Date of Service: 06/30/18 SOAP: Subjective: []Patient seen and examined at bedside. She feels well, her hip pain is tolerable. Denies CP, SOB, dizziness, nausea. Objective: []General: Well appearing, NAD LLE: Left hip dressing CDI without erythema. Thigh is soft, DF/PF intact, DP2+, sensation intact to light touch distally. Calves supple and nontender without erythema, edema or palpable cords Assessment: []POD 1 sp left periprosthetic femur fracture ORIF, revision of femoral component of L total hip. Plan: []50% wb lovenox 40 mg sq qd x 30 days H&H to be monitored, no need for transfusion today based off H&H from this morning Plan to return to PMRU if possible, consult placed Vital Signs Temp 98.8 F 06/30/18 07:16 Pulse 97 06/30/18 07:16 Resp 16 06/30/18 07:16 BP 123/52 06/30/18 07:54 Pulse Ox 100 06/30/18 07:16 Intake & Output 06/29/18 06/30/18 06/30/18 18:59 06:59 18:59 Intake Total 1780 Output Total 825 Balance 955 Weight 113 lb 15.664 oz Intake: IV Fluids 1300 LR 1250 NS 50ML, Cefazolin 2G 50 Oral 480 Output: Basurto 525 Estimated Blood Loss 300 Laboratory Last Values Hgb 8.7 g/dl (12.0-16.0) L 06/30/18 06:15 Hct 26 % (35-47) L 06/30/18 06:15 Plt Count 298 10^3/ul (150-450) 06/30/18 06:15 MPV 7.1 fL (7.4-10.4) L 06/30/18 06:15 Sodium 137 mmol/L (135-145) 06/30/18 06:15 Potassium 3.9 mmol/L (3.5-5.0) 06/30/18 06:15 Chloride 104 mmol/L (101-111) 06/30/18 06:15 Carbon Dioxide 28 mmol/L (22-32) 06/30/18 06:15 Anion Gap 5 mmol/L (2-11) 06/30/18 06:15 BUN 10 mg/dL (6-24) 06/30/18 06:15 Creatinine 0.44 mg/dL (0.51-0.95) L 06/30/18 06:15 Est GFR ( Amer) 166.9 (>60) 06/30/18 06:15 Est GFR (Non-Af Amer) 137.9 (>60) 06/30/18 06:15 BUN/Creatinine Ratio 22.7 (8-20) H 06/30/18 06:15 Glucose 128 mg/dL (70-100) H 06/30/18 06:15 Calcium 7.8 mg/dL (8.6-10.3) L 06/30/18 06:15
[2018-06-30] MEDS: ceFAZolin 1 GM* X 2 DOSES POST-OP Q8H (AddVan) IVPB SCH ×4 (09:23→18:03)
[2018-06-30] MEDS ORDERED: NS 0.9% 50 ML* 50 ML ONE (10:43)
[2018-06-30] MEDS: Morphine VIAL* 4 MG/ML VIAL (1 ml vial) IV PRN ×2 (11:02→23:05)
[2018-06-30] MEDS: Enoxaparin(*) 40 MG/0.4 ML SYR SUBCUT SCH (12:25)
[2018-06-30] MEDS: traMADol TAB* 50 MG PO PRN (12:28)
--- NOTE | 2018-06-30 13:05 | OP ---
OPERATIVE NOTE: DATE OF OPERATION: 06/29/18. DATE OF : 38. SURGEON: Daja Coffey MD. CLOUD ADMINISTRATOR: EDUIN Cisneros. Ms. Colunga did help throughout the procedure with preparation of the leg, wound retraction, manipulation of the hip, and wound closure. ANESTHESIOLOGIST: Dr. Decker. ANESTHESIA: Spinal. 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 OPERATIVE PROCEDURE: Left total hip arthroplasty, revision of femoral stem with open reduction and internal fixation of the periprosthetic fracture. COMPLICATIONS: None. ESTIMATED BLOOD LOSS: 400 cc. SPECIMEN: Femoral stem sent to pathology. HARDWARE USED: This is uncemented Annabella Episcopal revision femoral stem. For the distal stem a 155 x 16 mm distal stem. For the proximal body a Episcopal modular hip system size 19 with height of 0. For the head, a Biolox delta ceramic V40 femoral head 36 -5, a trochanteric land lease information clerk plate with 6 cables was used. This is a size medium length of 200 trochanteric land lease information clerk plate. Two additional Dall-Miles cables were used distal to the trochanteric land lease information clerk plate. BRIEF HISTORY/INDICATION: Ms. Wooten is a 78-year-old female with a history of multiple comorbidities, osteoporosis, multiple falls, and poor pain localization. She was diagnosed with a left displaced femoral neck fracture on 06/20/18. She went onto have left total hip arthroplasty to fix this fracture on 06/21/18. The patient recovered on the orthopedic floor and was transferred to the RU unit. At 48 hours ago, on 06/27/18, the patient developed increased pain in the left hip with inability to bear weight. X-rays were obtained and showed a periprosthetic left femur fracture. There is no witnessed fall. The patient and her family were counseled extensively. They were given nonoperative and operative treatment plans, as well as the option of transfer. They wish to proceed with open reduction and internal fixation of the periprosthetic femur fracture and revision of the femoral stem. They understood the risk of surgery included, but were not limited to bleeding and infection, damage to neurovascular structures, continued pain, need for further surgery, intraoperative fracture, nerve palsy, hardware failure or loosening, dislocation, leg length discrepancy, stroke, heart attack, blood clot and . They understood the risk of intraoperative fracture was significant due to the patient's osteopenia. INTRAOPERATIVE FINDINGS: Intraoperatively, the patient had a periprosthetic fracture with loose femoral stem. This fracture was a medial fracture with minimal comminution, involved the entirety of the lesser trochanter. Osteopenia was noted throughout the case. DESCRIPTION OF PROCEDURE: Ms. Wooten was identified in the preanesthesia unit. Her left lower extremity was marked as the correct operative side. Informed consent was signed and placed in the chart. The patient was taken to the operating room and placed under spinal anesthesia. Basurto catheter was placed. She was placed in the right lateral decubitus position on the pegboard. All bony prominences were well padded. Left lower extremity was prepped and draped in the usual sterile fashion. Preop timeout was made to correctly identified the patient, side, and site. Appropriate perioperative antibiotics were given within 1 hour of incision. The patient's posterior hip incision was used and extended distally approximately 8 cm. Electrocautery was used to dissect down to the lateral fascial layer. A new 10-blade was used to incise the lateral fascial layer. Large amounts of hematoma and serosanguineous fluid was encountered. This was carefully suctioned. A Charnley retractor was placed. Posterior aspect of the hip joint was well visualized. The hip was copiously irrigated with sterile saline. The hip was carefully dislocated. A back flap was used to gently remove the femoral stem, which was clearly loose. The fracture was visible and involved the entirety of the lesser troch medially and anteriorly. The fracture site was copiously irrigated. Any hematoma was carefully removed using a rongeur. Reduction forceps were used to reduce the fracture. A single Dall-Miles cable was placed around the fracture site. Multiple AP and lateral C - arm views were used to confirm satisfactory reduction of the fracture. The superior portion of the IT band was carefully elevated off the proximal femur and Carrizales elevator was used to dissect down to bone laterally. Next, a trochanteric land lease information clerk plate was placed along the anterolateral femur. This was a Dall-Miles trochanteric land lease information clerk plate with size medium with a length of 200. This was placed on the anterolateral femur and had excellent fit. Then 3 cables were used to secure the plate to the bone. A stable construct was noted. Multiple AP and lateral C- arm views were obtained. The reduction was unchanged and satisfactory. Two additional cables were placed through the plate. Next, dissection was taken distal to the plate and 2 additional Dall- Miles cables were placed around the bone to further reinforce where the stem tip would end. Attention was turned at this point to revising the femoral stem. Canal finder was used to enter the femoral canal. The canal distally was sequentially broached up to a size 16. The 16 broach had excellent fit and stability. Therefore, the Episcopal modular distal stem was chosen at size 16 with 155 length. This was gently impacted down into the canal and had excellent stability. Proximally reaming was performed and a Episcopal modular hip proximal body size 19 height of 0 was chosen. This was locked and screwed into the distal stem. Torque instrument was used to completely tighten the proximal body. Appropriate amount of anteversion was noted. It was noted that due to the stem's advancement distance, the femoral stem did sit up approximately 5 mm more than was optimal. Therefore, a 36 -5 Biolox delta ceramic V40 femoral head was chosen and impacted onto the femoral neck. The hip was carefully reduced and taken through a range of motion. The hip was stable in all positions. At this point, 1 additional cable was placed proximally to further secure the greater trochanter and the trochanteric land lease information clerk plate. Multiple AP and lateral C-arm views were obtained. They showed no obvious loss of reduction. Distally, there was no obvious periprosthetic fracture after placement of the stem. The patient's wound was copiously irrigated with sterile saline. A #5 Ethibond was used to perform a posterior soft tissue repair through any available tissue. The IT band and lateral fascia was reapproximated and repaired over the trochanteric land lease information clerk plate. The lateral fascial layer was reapproximated using interrupted #1 Vicryls. The rest of the incision was closed in a layered fashion using 0 and 2-0 Vicryls. Skin was closed using quinn. The patient's incision was covered with Xeroform, 4x4s and paper tape. The patient's anesthesia was reversed without difficulty. She was taken to the PACU in stable condition. Intended weightbearing will be 50% weightbearing and protected. Intended DVT prophylaxis will be Lovenox. [id number]/[facility] #: [id number] [facility] HOSPITALRachna
[2018-07-01] MEDS: oxyCODONE/Acetamin 5/325 MG* TAB PO PRN ×2 (03:31→22:03)
[2018-07-01] MEDS: Morphine VIAL* 4 MG/ML VIAL (1 ml vial) IV PRN ×2 (05:00→16:21)
[2018-07-01] MEDS: oxyCODONE TAB* 5 MG TAB PO PRN ×2 (06:04→16:26)
[2018-07-01] MEDS: Acetaminophen TAB* 325 MG PO SCH ×3 (06:06→21:42)
[2018-07-01 06:41] LABS: Hematocrit 23 % (35-47); Hemoglobin 7.7 g/dl (12.0-16.0); Mean Platelet Volume 6.8 fL (7.4-10.4); Platelet Count 271 10^3/ul (150-450)
[2018-07-01] MEDS: Tiotropium CAP.INH* CAP.INH/18 MCG (USE ORDER SET !) INH SCH (08:46)
[2018-07-01] MEDS: Magnesium Hydroxide LIQ* 30 ML UDC PO SCH ×2 (11:01→21:29)
[2018-07-01] MEDS: Docusate CAP* 100 MG PO SCH ×2 (11:01→21:29)
[2018-07-01] MEDS: Sertraline* 25 MG TAB PO SCH (11:02)
[2018-07-01] MEDS: Enoxaparin(*) 40 MG/0.4 ML SYR SUBCUT SCH (13:51)
--- NOTE | 2018-07-01 14:08 | PN ---
Progress Note - Progress Note Date of Service: 07/01/18 SOAP: Subjective: []Patient seen OOB in chair. Has been up to chair from bed. Denies SOB, CP or dizziness. Looks pale. Mild tachycardia this am, asymptomatic. Objective: [] Vital Signs Temp 97.9 F 07/01/18 11:13 Pulse 98 07/01/18 11:20 Resp 16 07/01/18 11:13 BP 116/46 07/01/18 11:13 Pulse Ox 93 07/01/18 11:13 Intake & Output 06/30/18 07/01/18 07/01/18 18:59 06:59 18:59 Intake Total 100 2773 Output Total 0 625 Balance 100 2148 Intake: IV Fluids 1933 ABX - CEFAZOLIN 106 LR 1827 Oral 100 840 Output: Urine 0 0 Straight Cath 575 Liquid Stool 50 Other: Date of Last Bowel 07/01/18 Movement # Bowel Movements 0 1 Estimated Stool Amount Small Laboratory Results - last 24 hr 07/01/18 06:32 Hgb 7.7 L Hct 23 L Plt Count 271 MPV 6.8 L Left hip incision benign dressing changed calf NT and soft +Df left ankle sensation intact distally Assessment: []s/p revision femoral component for periprosthetic left proximal femur fracture POD #2 Acute post operative anemia secondary to blood loss Plan: []Transfuse 1 unit PRBC today H+ H in am PWB 50% LLE Family has decided against PMRU and will pursue SNF rehab
[2018-07-01 19:21] LABS: Urine Appearance Cloudy; Urine Blood Negative (Negative); Urine Color Yellow; Urine Ketones Negative (Negative); Urine Protein Negative (Negative); Urine Red Blood Cell 1+(3-5/hpf) (Absent); Urine Specific Gravity 1.013 (1.010-1.030); Urine Urobilinogen Negative (Negative); Urine White Blood Cell 1+(6-10/hpf) (Absent)
--- NOTE | 2018-07-01 22:12 | CONS ---
CC: Dr. Sutton; Dr. Coffey; Dr. Robb * CONSULTATION REPORT: DATE OF CONSULT: 07/01/18 PRIMARY CARE PROVIDER: Dr. Sutton. MY ATTENDING PHYSICIAN WHILE IN THE HOSPITAL: Dr. Cristiana Montes (report dictated by Wilber Foster NP). REASON FOR MEDICAL CONSULT: 1. Evaluation and medical management of comorbid medical problems. 2. Urinary hesitancy. 3. Decreased urine output. HISTORY OF PRESENT ILLNESS: Ms. Wooten is a 78-year-old female patient who has a history of depression, COPD, and lung cancer, who presented originally on 06/23/18 with a left hip fracture. She underwent ORIF and was discharged actually to PM. On , she was complaining of significant pain, x-rays were obtained and she was found to have a periprosthetic fracture. She was then readmitted, taken back to the OR and underwent a hip arthroplasty and revision of hardware. Since then, she has been doing well with the exception that she has been having difficulty voiding. She says that she has had a history of this in the past 2 or 3 years ago, she does not know the exact date, she actually underwent what sounds like urethral dilatation with Dr. Robb and she said that she felt great and never had an issue, but she has been noticing that it takes her a while sometimes to initiate stream and to go. She denies having any dysuria or frequency, but she definitely does say that she has some hesitancy. She says that she denies any back pain, fevers, or chills. She denied having any again lower abdominal discomfort. No chest pain or shortness of breath and she says she does not feel nauseated. There was concern though because of the underlying factor she was difficulty with urination, we were asked to evaluate for consult. PAST MEDICAL HISTORY: Significant for: 1. Depression. 2. COPD. 3. Lung cancer. PAST SURGICAL HISTORY: She had a left hip ORIF and then now she has had a left total hip arthroplasty and she has had a lobectomy. MEDICATIONS: Home meds include, she was on: 1. Tramadol 50 mg every 6 hours as needed. 2. Spiriva 1 capsule inhaled daily. 3. Bactrim 1 tablet every 24 hours. 4. Zoloft 25 mg daily. 5. Robaxin 750 mg every 6 hours as needed. 6. [place] 1 to 2 tablets every 4 to 6 hours as needed. 7. Lovenox 30 subcu every 24 hours. 8. Colace 100 mg daily. 9. Ventolin 2 puffs inhaled every 6 hours as needed. 10. Albuterol 2.5 mg inhaler every 2 hours as needed. 11. Tylenol 650 mg every 4 hours as needed. ALLERGIES TO MEDICATIONS: Include no known drug allergies. FAMILY HISTORY: Her mother had a history of lymphoma. Father had lung cancer. SOCIAL HISTORY: She is a former smoker. She does drink 1 to 2 drinks a day. She has not drink since prior to the last admission. Surrogate decision maker is her . REVIEW OF SYSTEMS: There is no documented fever. She denied having any significant weight change. There is no double vision. She denies having any ear discharge. There is no rhinorrhea. There is no sore throat, no thyroid enlargement. She is denying having any chest pain. There is no orthopnea, there is no nocturnal dyspnea. She denies having any abdominal pain. She denies any dysuria, she does admit to having hesitancy. She denies having any nausea or vomiting. No loss of consciousness. No pruritus and no skin ulcerations. Review of 14 systems completed, all others negative. PHYSICAL EXAM: General: At this time, Ms. Wooten is a 78-year-old female patient. She is sitting in the hospital bed. She does not appear to be in any acute distress. She appears to be well nourished and well developed. Blood pressure 94/52 with pulse 96, respirations 18, O2 sat 99%, temperature 98.3. HEENT: Head, atraumatic and normocephalic. Eyes, EOMs are intact. Sclerae were anicteric, not pale. Throat: Oral mucosa did appear to be dry. Neck: Supple. Lungs were diminished in the bases, but otherwise clear. No wheezes, rales, or rhonchi. Heart: Sounds S1, S2. She had a regular rate and rhythm. No murmurs, rubs, or gallops. Abdomen was soft, flat, nontender. There was no CVA tenderness. Extremities: Distal CSM checks are intact to the lower extremity. She does have +2 edema to the left lower extremity. She did have 5/ 5 strength with dorsi and plantar flexion. Neurologically, she is awake, alert, she is oriented x3. She had no gross focal deficits. Her skin is intact. DIAGNOSTIC STUDIES/LAB DATA: Hemoglobin was 7.7, hematocrit 23, platelet count of 271. Her sodium was 137, potassium 3.9, chloride of 104, bicarb 28, BUN 10, creatinine of 0.44, glucose 128. She had a hip x-ray today, which showed reduction and internal fixation of prior periprosthetic fracture of the lesser trochanter, fragment fractures are near complete alignment. There appears to be revision of the femoral component and she had a femur x-ray, which showed no new fracture of the left femur. Old medical records reviewed. ASSESSMENT AND PLAN: Ms. Wooten is a 78-year-old female patient coming into again orthopedic services for revision of a periprosthetic fracture. Postoperatively, she has been having difficulty with urination. Our recommendations at this point are: 1. Status post revision of a left hip open reduction internal fixation and now status post left total hip arthroplasty. We defer the management to Dr. Coffey and her team. 2. Difficulty with urination. We will get a UA. At this point, we will get a post-residual bladder scan. It sounds like she has had a urethral stricture in the past. She may need to follow up with Dr. Robb in the outpatient setting for another dilatation, but I will get a bladder ultrasound and make sure she is not in retention. Her BUN and creatinine appeared to be stable. She did put out 200 cc of urine today already she was urinating prior to my exam tonight, so we will wait and see how much urine output she had. I think replacing her blood loss will help as well for her anemia. I would avoid excessive narcotics as this will not help and I would hold off on giving her any Benadryl which I have discontinued. 3. Acute blood loss anemia, probably secondary to surgery. She is getting blood tonight, we will repeat her CBC in the morning. 4. Depression. Continue supportive care. 5. History of chronic obstructive pulmonary disease. Continue as described. 6. Lung cancer. Follow up with PCP. 7. DVT prophylaxis. Defer to the primary team. 8. Code status. Full code. 7. Fluids, electrolytes, and nutrition. She can have a regular diet. TIME SPENT: On consult was 60 minutes, greater than half the time spent face-to - face with the patient obtaining my history and physical; other half time spent going over the plan of care with the patient and implementing plan of care. I did discuss the plan of care with my attending, Dr. Montes; she is in agreement. WIBLER FOSTER NP [id number]/[facility] #: [id number] RUIZ
[2018-07-02] MEDS: oxyCODONE/Acetamin 5/325 MG* TAB PO PRN ×5 (02:01→22:31)
[2018-07-02 05:24] LABS: ABS Basophils 0 10^3/ul (0-0.2); ABS Eosinophils 0 10^3/ul (0-0.6); ABS Lymphocytes 0.4 10^3/ul (1.0-4.8); ABS Monocytes 0.7 10^3/ul (0-0.8); ABS Neutrophils 9.7 10^3/ul (1.5-7.7); ABS Nucleated RBC 0 10^3/ul; Eosinophil % 0.3 %; Hematocrit 29 % (35-47); Hemoglobin 9.8 g/dl (12.0-16.0); Lymphocyte % 3.4 %; Mean Corpuscular HGB Conc 33 g/dl (31-36); Mean Corpuscular Hemoglobin 30 pg (27-31); Mean Corpuscular Volume 89 fL (80-97); Nucleated Red Blood Cells % 0.1; Platelet Count 288 10^3/ul (150-450); Red Blood Count 3.31 10^6/ul (4.00-5.40); Red Cell Distribution Width 17 % (10.5-15); White Blood Count 10.8 10^3/ul (3.5-10.8)
[2018-07-02 05:44] LABS: EGFR Non-African American 158.5 (>60)
[2018-07-02] MEDS: Acetaminophen TAB* 325 MG PO SCH ×3 (06:24→22:35)
[2018-07-02] MEDS: Magnesium Hydroxide LIQ* 30 ML UDC PO SCH ×2 (08:08→20:55)
[2018-07-02] MEDS: Docusate CAP* 100 MG PO SCH ×2 (08:08→20:55)
[2018-07-02] MEDS: Sertraline* 25 MG TAB PO SCH (08:13)
[2018-07-02] MEDS: Tiotropium CAP.INH* CAP.INH/18 MCG (USE ORDER SET !) INH SCH (08:13)
--- NOTE | 2018-07-02 11:34 | PN ---
Progress Note - Progress Note Date of Service: 07/02/18 SOAP: Subjective: Pt. is alert, nad. She reports minimal pain in the left thigh. Objective: LLE - thigh soft, dressing c/d/i. Pt. has knee flexed to 90 degrees with minimal pain. distally nvi. Vital Signs: Temp Pulse Resp BP Pulse Ox 98.2 F 93 18 125/63 98 07/02/18 07:46 07/02/18 07:46 07/02/18 10:10 07/02/18 07:46 07/02/18 08:00 Laboratory Results - last 24 hr 07/01/18 07/01/18 07/02/18 06:32 19:00 05:01 WBC 10.8 RBC 3.31 L Hgb 9.8 L Hct 29 L MCV 89 MCH 30 MCHC 33 RDW 17 H Plt Count 288 MPV 7.0 L Neut % (Auto) 89.9 Lymph % (Auto) 3.4 [place] % (Auto) 6.1 Eos % (Auto) 0.3 Baso % (Auto) 0.3 Absolute Neuts (auto) 9.7 H Absolute Lymphs (auto) 0.4 L Absolute Monos (auto) 0.7 Absolute Eos (auto) 0 Absolute Basos (auto) 0 Absolute Nucleated RBC 0 Nucleated RBC % 0.1 Sodium Potassium Chloride Carbon Dioxide Anion Gap BUN Creatinine Est GFR ( Amer) Est GFR (Non-Af Amer) BUN/Creatinine Ratio Glucose Calcium Urine Color Yellow Urine Appearance Cloudy Urine pH 6.0 Ur Specific [place] 1.013 Urine Protein Negative Urine Ketones Negative Urine Blood Negative Urine Nitrate Negative Urine Bilirubin Negative Urine Urobilinogen Negative Ur Leukocyte Esterase Trace A Urine WBC (Auto) 1+(6-10/hpf) A Urine RBC (Auto) 1+(3-5/hpf) A Ur Squamous Epith Cells Present A Urine Bacteria Absent Urine Glucose Negative Blood Type B Negative Antibody Screen Negative Crossmatch See Detail 07/02/18 05:01 WBC RBC Hgb Hct MCV MCH MCHC RDW Plt Count MPV Neut % (Auto) Lymph % (Auto) [place] % (Auto) Eos % (Auto) Baso % (Auto) Absolute Neuts (auto) Absolute Lymphs (auto) Absolute Monos (auto) Absolute Eos (auto) Absolute Basos (auto) Absolute Nucleated RBC Nucleated RBC % Sodium 134 L Potassium 3.9 Chloride 102 Carbon Dioxide 26 Anion Gap 6 BUN 9 Creatinine 0.39 L Est GFR ( Amer) 191.8 Est GFR (Non-Af Amer) 158.5 BUN/Creatinine Ratio 23.1 H Glucose 90 Calcium 8.1 L Urine Color Urine Appearance Urine pH Ur Specific [place] Urine Protein Urine Ketones Urine Blood Urine Nitrate Urine Bilirubin Urine Urobilinogen Ur Leukocyte Esterase Urine WBC (Auto) Urine RBC (Auto) Ur Squamous Epith Cells Urine Bacteria Urine Glucose Blood Type Antibody Screen Crossmatch Assessment: 78 yo F pod 3 s/p ORIF L periprosthetic femur fx and revision femoral component. Plan: 50% wb lle xrays from 07/01 show hardware intact and fracture reduction satisfactory. No periprosthetic fx. pt/ot ice to left thigh prn analgesia
[2018-07-02] MEDS: Enoxaparin(*) 40 MG/0.4 ML SYR SUBCUT SCH (12:21)
--- NOTE | 2018-07-02 14:59 | PN ---
Subjective Date of Service: 07/02/18 Interval History: Patient resting in chair and at bedside. Reports pain to left hip is minimal. Reports she is urinating more than previously. Per nurse she has been incontinent of large amounts of urine today. Patient reports prior to today she felt like she had to void very frequently but would not void. She reports these symptoms have improved. Denies painful urination, hematuria, fever, chills, n/v/d. Objective Active Medications: Acetaminophen (Tylenol Tab*) 975 mg PO Q8H [facility] Last Admin: 07/02/18 12:46 Dose: Not Given Albuterol (Ventolin 2.5 Mg/3 Ml Neb.Kami*) 2.5 mg INH Q2H PRN PRN Reason: SOB/WHEEZING Albuterol (Ventolin Hfa Inhaler*) 2 puff INH Q6H PRN PRN Reason: SOB/WHEEZING Docusate Sodium (Colace Cap*) 100 mg PO BID [facility] Last Admin: 07/02/18 08:08 Dose: Not Given Enoxaparin Sodium (Lovenox(*)) 40 mg SUBCUT Q24H [facility] Last Admin: 07/02/18 12:21 Dose: 40 mg Lactated Ringer's (Lactated Ringers 1000 Ml Bag*) 1,000 mls @ 100 mls/hr IV PER RATE [facility] Last Admin: 07/02/18 04:32 Dose: 100 mls/hr Magnesium Hydroxide (Milk Of Magnesia Liq*) 30 ml PO BID [facility] Last Admin: 07/02/18 08:08 Dose: Not Given Magnesium Hydroxide (Milk Of Magnesia Liq*) 30 ml PO Q6H PRN PRN Reason: constipation Methocarbamol (Robaxin Tab*) 750 mg PO Q6H PRN PRN Reason: SPASMS Morphine Sulfate (Morphine Vial*) 2 mg IV Q2H PRN PRN Reason: PAIN - UNRELIEVED Last Admin: 07/01/18 16:21 Dose: 2 mg Ondansetron HCl (Zofran Inj*) 4 mg IV Q6H PRN PRN Reason: nausea Ondansetron HCl (Zofran Odt Tab*) 4 mg PO Q6H PRN PRN Reason: NAUSEA Oxycodone/Acetaminophen (Percocet 5/325 Tab*) 1 tab PO Q4H PRN PRN Reason: PAIN - MODERATE Last Admin: 07/02/18 12:16 Dose: 1 tab Sertraline HCl (Zoloft*) 25 mg PO DAILY [facility] Last Admin: 07/02/18 08:13 Dose: 25 mg Tiotropium [place] (Spiriva Cap.Inh*) 1 cap INH DAILY [facility] Last Admin: 07/02/18 08:13 Dose: 1 cap Tramadol HCl (Ultram*) 50 mg PO Q6H PRN PRN Reason: PAIN Last Admin: 06/30/18 12:28 Dose: 50 mg Vital Signs - 8 hr 07/02/18 07/02/18 07/02/18 07:46 08:00 08:13 Temperature 98.2 F Pulse Rate 93 Respiratory 16 18 16 Rate Blood Pressure 125/63 (mmHg) O2 Sat by Pulse 98 98 Oximetry 07/02/18 07/02/18 07/02/18 10:10 11:35 12:16 Temperature 97.9 F Pulse Rate 102 Respiratory 18 16 18 Rate Blood Pressure 108/53 (mmHg) O2 Sat by Pulse 99 Oximetry 07/02/18 13:54 Temperature Pulse Rate Respiratory 18 Rate Blood Pressure (mmHg) O2 Sat by Pulse Oximetry Oxygen Devices in Use Now: Nasal Cannula Appearance: Comfortable, cooperative, NAD Eyes: No Scleral Icterus, PERRLA Ears/Nose/Mouth/Throat: Clear Oropharnyx, Mucous Membranes Moist Neck: NL Appearance and Movements; NL JVP Respiratory: Symmetrical Chest Expansion and Respiratory Effort, Clear to Auscultation Cardiovascular: NL Sounds; No Murmurs; No JVD, RRR, - - +2 bilateral LE edema Lymphatic: No Cervical Adenopathy Extremities: No Clubbing, Cyanosis Skin: No Rash or Ulcers, - - Dressing to left hip CDI Neurological: Alert and Oriented x 3 Nutrition: Taking PO's Result Diagrams: 07/02/18 05:01 07/02/18 05:01 Additional Lab and Data: Laboratory Results - last 24 hr 07/01/18 07/01/18 07/02/18 06:32 19:00 05:01 WBC 10.8 RBC 3.31 L Hgb 9.8 L Hct 29 L MCV 89 MCH 30 MCHC 33 RDW 17 H Plt Count 288 MPV 7.0 L Neut % (Auto) 89.9 Lymph % (Auto) 3.4 [place] % (Auto) 6.1 Eos % (Auto) 0.3 Baso % (Auto) 0.3 Absolute Neuts (auto) 9.7 H Absolute Lymphs (auto) 0.4 L Absolute Monos (auto) 0.7 Absolute Eos (auto) 0 Absolute Basos (auto) 0 Absolute Nucleated RBC 0 Nucleated RBC % 0.1 Sodium Potassium Chloride Carbon Dioxide Anion Gap BUN Creatinine Est GFR ( Amer) Est GFR (Non-Af Amer) BUN/Creatinine Ratio Glucose Calcium Urine Color Yellow Urine Appearance Cloudy Urine pH 6.[address] 1.013 Urine Protein Negative Urine Ketones Negative Urine Blood Negative Urine Nitrate Negative Urine Bilirubin Negative Urine Urobilinogen Negative Ur Leukocyte Esterase Trace A Urine WBC (Auto) 1+(6-10/hpf) A Urine RBC (Auto) 1+(3-5/hpf) A Ur Squamous Epith Cells Present A Urine Bacteria Absent Urine Glucose Negative Blood Type B Negative Antibody Screen Negative Crossmatch See Detail 07/02/18 05:01 WBC RBC Hgb Hct MCV MCH MCHC RDW Plt Count MPV Neut % (Auto) Lymph % (Auto) [place] % (Auto) Eos % (Auto) Baso % (Auto) Absolute Neuts (auto) Absolute Lymphs (auto) Absolute Monos (auto) Absolute Eos (auto) Absolute Basos (auto) Absolute Nucleated RBC Nucleated RBC % Sodium 134 L Potassium 3.9 Chloride 102 Carbon Dioxide 26 Anion Gap 6 BUN 9 Creatinine 0.39 L Est GFR ( Amer) 191.8 Est GFR (Non-Af Amer) 158.5 BUN/Creatinine Ratio 23.1 H Glucose 90 Calcium 8.1 L Urine Color Urine Appearance Urine pH Ur Specific Lane Urine Protein Urine Ketones Urine Blood Urine Nitrate Urine Bilirubin Urine Urobilinogen Ur Leukocyte Esterase Urine WBC (Auto) Urine RBC (Auto) Ur Squamous Epith Cells Urine Bacteria Urine Glucose Blood Type Antibody Screen Crossmatch Microbiology and Other Data: . Diagnostic Imaging: . EKG Data: . Assess/Plan/Problems-Billing Assessment: 78 year old female with a hx of depression, COPD, and lung cancer; who was is s/ p ORIF L periprosthetic femur fx and revision femoral component. Patient was noted to be having difficulty urinating post operatively. - Patient Problems (1) Femur fracture, left Comment: - POD # 3 - s/p ORIF L periprosthetic femur fx and revision femoral component - Management per ortho team (2) Urinary retention Comment: - Patient noted to have difficulty urinating with min urinary retention. This issue is resolving per patient and per nurse (patient incontinent of large amounts of urine today). She was also continent x1 this morning - UA unremarkable, but awaiting culture - Encouraged patient to call nurse to get up to commode for urination. - Instructed staff to bladder scan patient after voiding again today. - Patient may still benefit from follow up with Dr Robb after discharge - Ultrasound on 07/01/18 revealed normal bladder and kidneys. No residual noted as patient was able to urinate at the end of the examination. - Cont to avoid excessive narcotics and other offending agents like Benadryl (3) COPD (chronic obstructive pulmonary disease) Current Visit: No Status: Acute Code(s): J44.9 - CHRONIC OBSTRUCTIVE PULMONARY DISEASE, UNSPECIFIED SNOMED Code(s): 42939884 Comment: - Continue inhalers as scheduled (4) DVT prophylaxis Comment: - Lovenox per ortho team (5) Depression Comment: - Continue zoloft (6) Full code status Current Visit: No Status: Acute Code(s): Z78.9 - OTHER SPECIFIED HEALTH STATUS SNOMED Code(s): 595155640 Status and Disposition: Is seems patient difficulty urinating is resolving. We will continue to monitor. Thank you for allowing us to participate in this patient's care. Discharge when stable per Ortho Attending: Denisha Mcmahan
[2018-07-02] MEDS: Albuterol HFA INHALER* 8 gm MDI INH PRN (16:12)
[2018-07-03] MEDS: oxyCODONE/Acetamin 5/325 MG* TAB PO PRN ×4 (06:19→19:15)
[2018-07-03] MEDS: Acetaminophen TAB* 325 MG PO SCH ×3 (06:20→22:42)
[2018-07-03 06:26] LABS: Hematocrit 28 % (35-47); Hemoglobin 9.5 g/dl (12.0-16.0); Mean Platelet Volume 6.8 fL (7.4-10.4); Platelet Count 338 10^3/ul (150-450)
[2018-07-03] MEDS: Docusate CAP* 100 MG PO SCH ×2 (07:26→19:39)
[2018-07-03] MEDS: Magnesium Hydroxide LIQ* 30 ML UDC PO SCH ×2 (07:26→19:39)
[2018-07-03] MEDS: Tiotropium CAP.INH* CAP.INH/18 MCG (USE ORDER SET !) INH SCH (09:09)
[2018-07-03] MEDS: Sertraline* 25 MG TAB PO SCH (09:10)
[2018-07-03] MEDS: Enoxaparin(*) 40 MG/0.4 ML SYR SUBCUT SCH (12:50)
--- NOTE | 2018-07-03 13:01 | PN ---
Progress Note - Progress Note Date of Service: 07/03/18 SOAP: Subjective: Pt seen sitting up in chair. No complaint of pain. No complaint otherwise. Denies CP, SOB. Vital Signs: Temp Pulse Resp BP Pulse Ox 98.6 F 87 18 120/50 100 07/03/18 11:51 07/03/18 11:51 07/03/18 12:18 07/03/18 11:51 07/03/18 11:51 Laboratory Last Values WBC 10.8 10^3/ul (3.5-10.8) 07/02/18 05:01 RBC 3.31 10^6/ul (4.00-5.40) L 07/02/18 05:01 Hgb 9.5 g/dl (12.0-16.0) L 07/03/18 06:11 Hct 28 % (35-47) L 07/03/18 06:11 MCV 89 fL (80-97) 07/02/18 05:01 MCH 30 pg (27-31) 07/02/18 05:01 MCHC 33 g/dl (31-36) 07/02/18 05:01 RDW 17 % (10.5-15) H 07/02/18 05:01 Plt Count 338 10^3/ul (150-450) 07/03/18 06:11 MPV 6.8 fL (7.4-10.4) L 07/03/18 06:11 Neut % (Auto) 89.9 % 07/02/18 05:01 Lymph % (Auto) 3.4 % 07/02/18 05:01 [place] % (Auto) 6.1 % 07/02/18 05:01 Eos % (Auto) 0.3 % 07/02/18 05:01 Baso % (Auto) 0.3 % 07/02/18 05:01 Absolute Neuts (auto) 9.7 10^3/ul (1.5-7.7) H 07/02/18 05:01 Absolute Lymphs (auto) 0.4 10^3/ul (1.0-4.8) L 07/02/18 05:01 Absolute Monos (auto) 0.7 10^3/ul (0-0.8) 07/02/18 05:01 Absolute Eos (auto) 0 10^3/ul (0-0.6) 07/02/18 05:01 Absolute Basos (auto) 0 10^3/ul (0-0.2) 07/02/18 05:01 Absolute Nucleated RBC 0 10^3/ul 07/02/18 05:01 Nucleated RBC % 0.1 07/02/18 05:01 Sodium 134 mmol/L (135-145) L 07/02/18 05:01 Potassium 3.9 mmol/L (3.5-5.0) 07/02/18 05:01 Chloride 102 mmol/L (101-111) 07/02/18 05:01 Carbon Dioxide 26 mmol/L (22-32) 07/02/18 05:01 Anion Gap 6 mmol/L (2-11) 07/02/18 05:01 BUN 9 mg/dL (6-24) 07/02/18 05:01 Creatinine 0.39 mg/dL (0.51-0.95) L 07/02/18 05:01 Est GFR ( Amer) 191.8 (>60) 07/02/18 05:01 Est GFR (Non-Af Amer) 158.5 (>60) 07/02/18 05:01 BUN/Creatinine Ratio 23.1 (8-20) H 07/02/18 05:01 Glucose 90 mg/dL (70-100) 07/02/18 05:01 Calcium 8.1 mg/dL (8.6-10.3) L 07/02/18 05:01 Urine Color Yellow 07/01/18 19:00 Urine Appearance Cloudy 07/01/18 19:00 Urine pH 6.0 (5-9) 07/01/18 19:00 Ur Specific [place] 1.013 (1.010-1.030) 07/01/18 19:00 Urine Protein Negative (Negative) 07/01/18 19:00 Urine Ketones Negative (Negative) 07/01/18 19:00 Urine Blood Negative (Negative) 07/01/18 19:00 Urine Nitrate Negative (Negative) 07/01/18 19:00 Urine Bilirubin Negative (Negative) 07/01/18 19:00 Urine Urobilinogen Negative (Negative) 07/01/18 19:00 Ur Leukocyte Esterase Trace (Negative) A 07/01/18 19:00 Urine WBC (Auto) 1+(6-10/hpf) (Absent) A 07/01/18 19:00 Urine RBC (Auto) 1+(3-5/hpf) (Absent) A 07/01/18 19:00 Ur Squamous Epith Cells Present (Absent) A 07/01/18 19:00 Urine Bacteria Absent (Absent) 07/01/18 19:00 Urine Glucose Negative (Negative) 07/01/18 19:00 Blood Type B Negative 07/01/18 06:32 Antibody Screen Negative 07/01/18 06:32 Crossmatch See Detail 07/01/18 06:32 Objective: A&Ox3, NAD. Calves soft, nontender. NVI Assessment: 78 yo female s/p ORIF left periprosthetic femur fx Plan: 50% wb LLE PT/OT Pain control
--- NOTE | 2018-07-03 14:18 | PN ---
Subjective Date of Service: 07/03/18 Interval History: Per nurse patient has been voiding large amounts of urine without difficultly. Nurse also reports that bladder scan revealed min retained urine. Sitting in chair on assessment. Reports frequency of urination is decreasing. Reports she is urinating without difficulty. Denies dysuria, hematuria, or other urinary symptoms. Reports pain in left hip is minimal. 12 point ROS completed and all others negative. Objective Active Medications: Acetaminophen (Tylenol Tab*) 975 mg PO Q8H [facility] Last Admin: 07/03/18 12:18 Dose: Not Given Albuterol (Ventolin 2.5 Mg/3 Ml Neb.Kami*) 2.5 mg INH Q2H PRN PRN Reason: SOB/WHEEZING Albuterol (Ventolin Hfa Inhaler*) 2 puff INH Q6H PRN PRN Reason: SOB/WHEEZING Last Admin: 07/02/18 16:12 Dose: 2 puff Docusate Sodium (Colace Cap*) 100 mg PO BID [facility] Last Admin: 07/03/18 07:26 Dose: Not Given Enoxaparin Sodium (Lovenox(*)) 40 mg SUBCUT Q24H [facility] Last Admin: 07/03/18 12:50 Dose: 40 mg Lactated Ringer's (Lactated Ringers 1000 Ml Bag*) 1,000 mls @ 100 mls/hr IV PER RATE [facility] Last Admin: 07/02/18 04:32 Dose: 100 mls/hr Magnesium Hydroxide (Milk Of Magnesia Liq*) 30 ml PO BID [facility] Last Admin: 07/03/18 07:26 Dose: Not Given Magnesium Hydroxide (Milk Of Magnesia Liq*) 30 ml PO Q6H PRN PRN Reason: constipation Methocarbamol (Robaxin Tab*) 750 mg PO Q6H PRN PRN Reason: SPASMS Morphine Sulfate (Morphine Vial*) 2 mg IV Q2H PRN PRN Reason: PAIN - UNRELIEVED Last Admin: 07/01/18 16:21 Dose: 2 mg Ondansetron HCl (Zofran Inj*) 4 mg IV Q6H PRN PRN Reason: nausea Ondansetron HCl (Zofran Odt Tab*) 4 mg PO Q6H PRN PRN Reason: NAUSEA Oxycodone/Acetaminophen (Percocet 5/325 Tab*) 1 tab PO Q4H PRN PRN Reason: PAIN - MODERATE Last Admin: 07/03/18 10:36 Dose: 1 tab Sertraline HCl (Zoloft*) 25 mg PO DAILY [facility] Last Admin: 07/03/18 09:10 Dose: 25 mg Tiotropium [place] (Spiriva Cap.Inh*) 1 cap INH DAILY [facility] Last Admin: 07/03/18 09:09 Dose: 1 cap Tramadol HCl (Ultram*) 50 mg PO Q6H PRN PRN Reason: PAIN Last Admin: 06/30/18 12:28 Dose: 50 mg Vital Signs - 8 hr 07/03/18 07/03/18 07/03/18 06:19 07:36 08:00 Temperature 97.9 F Pulse Rate 90 Respiratory 18 16 18 Rate Blood Pressure 118/58 (mmHg) O2 Sat by Pulse 100 100 Oximetry 07/03/18 07/03/18 07/03/18 09:24 10:36 11:51 Temperature 98.6 F Pulse Rate 87 Respiratory 18 18 16 Rate Blood Pressure 120/50 (mmHg) O2 Sat by Pulse 100 Oximetry 07/03/18 12:18 Temperature Pulse Rate Respiratory 18 Rate Blood Pressure (mmHg) O2 Sat by Pulse Oximetry Oxygen Devices in Use Now: Nasal Cannula Appearance: Comfortable, cooperative, NAD Eyes: No Scleral Icterus Ears/Nose/Mouth/Throat: Mucous Membranes Moist Neck: NL Appearance and Movements; NL JVP Respiratory: Symmetrical Chest Expansion and Respiratory Effort, Clear to Auscultation Cardiovascular: NL Sounds; No Murmurs; No JVD, RRR, - - +1 pitting edema bilaterally Abdominal: NL Sounds; No Tenderness; No Distention Lymphatic: No Cervical Adenopathy Extremities: No Clubbing, Cyanosis Skin: No Rash or Ulcers, - - Dressing to left hip CDI Neurological: Alert and Oriented x 3 Nutrition: Taking PO's Result Diagrams: 07/03/18 06:11 07/02/18 05:01 Additional Lab and Data: Laboratory Results - last 24 hr 07/03/18 06:11 Hgb 9.5 L Hct 28 L Plt Count 338 MPV 6.8 L Microbiology and Other Data: . Diagnostic Imaging: . EKG Data: . Assess/Plan/Problems-Billing Assessment: 78 year old female with a hx of depression, COPD, and lung cancer; who was is s/ p ORIF L periprosthetic femur fx and revision femoral component. Patient was noted to be having difficulty urinating post operatively. - Patient Problems (1) Femur fracture, left Comment: - POD # 4 - s/p ORIF L periprosthetic femur fx and revision femoral component - Management per ortho team (2) Urinary retention Comment: - Difficulty urinating has resolved. - No evidence of retention - Urine culture results suggest contaimination. I still have low suspicion for UTI, but I have ordered a repeat UA and culture - Encouraged patient to call nurse to get up to commode for urination. - Ultrasound on 07/01/18 revealed normal bladder and kidneys. No residual noted as patient was able to urinate at the end of the examination. - Cont to avoid excessive narcotics and other offending agents like Benadryl (3) Edema Comment: - Noted to have +1 pitting edema bilaterally. - I suspect this is from a combination of factors including IVF, positioning, etc. Since patient is normotensive and voiding issues are resolving, I have stopped her IVF. (4) COPD (chronic obstructive pulmonary disease) Comment: - Continue inhalers as scheduled - On supplement O2 at home at night. (5) DVT prophylaxis Comment: - Lovenox per ortho team (6) Depression Comment: - Continue zoloft (7) Full code status Current Visit: No Status: Acute Code(s): Z78.9 - OTHER SPECIFIED HEALTH STATUS SNOMED Code(s): 788907540 Status and Disposition: Is seems patient difficulty urinating is resolving. Thank you for allowing us to participate in this patient's care. Discharge when stable per Ortho Attending: Nickolas Baltazar
[2018-07-03 16:14] LABS: Urine Appearance Turbid; Urine Blood 3+ (Negative); Urine Color Amber; Urine Ketones Negative (Negative); Urine Protein Negative (Negative); Urine Red Blood Cell 3+(>10/hpf) (Absent); Urine Specific Gravity 1.012 (1.010-1.030); Urine Urobilinogen Negative (Negative); Urine White Blood Cell 3+(>20/hpf) (Absent)
[2018-07-03] MEDS: traMADol TAB* 50 MG PO PRN (19:53)
[2018-07-04] MEDS: oxyCODONE/Acetamin 5/325 MG* TAB PO PRN ×3 (00:28→12:51)
[2018-07-04] MEDS: traMADol TAB* 50 MG PO PRN (02:40)
[2018-07-04] MEDS: Acetaminophen TAB* 325 MG PO SCH (05:31)
[2018-07-04 06:43] LABS: Hematocrit 27 % (35-47); Hemoglobin 8.8 g/dl (12.0-16.0); Mean Platelet Volume 6.5 fL (7.4-10.4); Platelet Count 354 10^3/ul (150-450)
[2018-07-04] MEDS: Docusate CAP* 100 MG PO SCH (08:31)
[2018-07-04] MEDS: Magnesium Hydroxide LIQ* 30 ML UDC PO SCH (08:31)
[2018-07-04] MEDS: Sertraline* 25 MG TAB PO SCH (08:58)
[2018-07-04] MEDS: Tiotropium CAP.INH* CAP.INH/18 MCG (USE ORDER SET !) INH SCH (08:59)
[2018-07-04] MEDS: Albuterol HFA INHALER* 8 gm MDI INH PRN (09:16)
--- NOTE | 2018-07-04 11:54 | PN ---
Progress Note - Progress Note Date of Service: 07/04/18 SOAP: Subjective: POD #5 Left hip periprosthetic fx ORIF with revision of femoral component. Doing well, pain controlled. Denies CP/SOB, f/c, calf pain Objective: Vitals: Temp Pulse Resp BP Pulse Ox 97.4 F 91 16 118/54 98 07/04/18 07:18 07/04/18 09:25 07/04/18 09:25 07/04/18 07:18 07/04/18 09:25 Gen: A&Ox3, NAD at rest LLE: Dressing C/D/I, +f/e at ankle and MTPs, N/V intact Labs: Laboratory Results - last 24 hr 12//18 07/04/18 15:53 06:24 Hgb 8.8 L Hct 27 L Plt Count 354 MPV 6.5 L Urine Color [place] Urine Appearance Turbid Urine pH 7.0 Ur Specific [place] 1.012 Urine Protein Negative Urine Ketones Negative Urine Blood 3+ A Urine Nitrate Negative Urine Bilirubin Negative Urine Urobilinogen Negative Ur Leukocyte Esterase 2+ A Urine WBC (Auto) 3+(>20/hpf) A Urine RBC (Auto) 3+(>10/hpf) A Ur Squamous Epith Cells Present A Urine Bacteria Absent Urine Glucose Negative Assessment: POD #5 Left hip periprosthetic fx ORIF with revision of femoral component Plan: D/C to SNF today Cont 50% WB LLE Cont Lovenox 40mg q24h
--- NOTE | 2018-07-04 12:19 | DS ---
DATE OF ADMISSION: 06/29/2018. DATE OF DISCHARGE: 07/04/2018. PROVIDER: Dr. Daja Coffey * (dictated by EDUIN Kraus). ADMITTING DIAGNOSIS: Periprosthetic fracture of the left hip. DISCHARGE DIAGNOSIS: Periprosthetic fracture of the left hip, status post open reduction internal fixation and revision of the femoral component of the left total hip replacement. SECONDARY DIAGNOSES: Depression, COPD, lung cancer. HISTORY OF PRESENT ILLNESS: Ms. Wooten is a 78-year-old female who has been followed by Dr. Coffey for left hip pain. She had a fall on 06/01/2018 and injured her left knee and hip. She was given a cortisone injection at the time in the knee which did help alleviate her pain and she had an initial x-ray which was read as negative for any sort of hip fracture. She continued to have pain over the next couple of weeks to the point where she was unable to ambulate without pain. She was sent to the emergency room for a CT to rule out a hip fracture with possible admission. CT did read a left femoral neck fracture and the patient underwent a left total hip replacement on 06/21/2018. The patient was recovering well and was transferred to the [facility] for further rehab. On 06/29/2018, the patient was found to have a significant increase in pain without any sort of known fall. X-rays were obtained and she was found to have a periprosthetic fracture of the left hip. HOSPITAL COURSE: On 06/29/2018, the patient was readmitted to [facility] from the inpatient RU with a periprosthetic left hip fracture. On 11/2017, she underwent revision of the femoral component with open reduction internal fixation of the periprosthetic fracture of the left hip. She recovered briefly in the Post Anesthesia Care Unit and was transferred to the Short Stay Surgical Unit in stable condition. On postop day one, the patient was feeling well as she had no dizziness, shortness of breath, or lightheadedness. Pain was well controlled with oral and IV pain medication. She was receiving Lovenox for DVT prophylaxis. She had a slight drop in her H and H from acute blood loss anemia to 8.7 and 26. On postop day one, the patient was able to participate with physical therapy briefly and was 50 percent weightbearing with a rolling walker. On postop day two, the patient had further blood loss anemia with 7.7 and 23. She was then transfused with one unit of packed red blood cells. H and H did improve after that to 9.8 and 29 and that patient stated that she was feeling better. Her Basurto catheter was removed and she was having some difficulty voiding and was having some urinary retention. Urinalysis was order and did not show any sign of infection. On postop day three, the patient was voiding more normally without any difficulty. H and H remains stable at 9.5 and 28. The patient remained asymptomatic. She was again able to participate with physical therapy being 50 percent weightbearing with a rolling walker. On postop day four, the patient was found stable for [facility] to a [facility] for [facility] rehab. H and H again was stable at 8.8 and 27. Throughout the hospital course, the patient's vital signs remained stable and she was afebrile. DISCHARGE DISPOSITION: To a prison facility. DISCHARGE CONDITION: Stable. DISCHARGE INSTRUCTIONS: The patient is 50 percent weightbearing with the use of a rolling walker on the left leg. She will have PT and OT with continued posterior hip precautions. She is able to shower normally and will apply a dry dressing as needed to the hip. She is advised to have the nursing facility call with any problems or questions. She will go directly to the emergency room with any chest pain, shortness of breath, calf pain or swelling, or fever greater than 101.5. DISCHARGE MEDICATIONS: 1. Percocet 5/325 one tab p.o. q.4 to 6 hours prn pain. 2. Colace 100 mg p.o. b.i.d. 3. Lovenox 40 mg subcutaneously q.24 hours. She will resume her home medication of: 1. Robaxin 500 mg p.o. q.6 hours prn. 2. Zoloft 25 mg daily. 3. Spiriva one cap inhaled daily. 4. Albuterol HFA inhaler two puffs inhaled q.6 hours prn. EDUIN KRAUS [id number]/[facility] #: [id number] RUIZ
[2018-07-04] MEDS: Enoxaparin(*) 40 MG/0.4 ML SYR SUBCUT SCH (12:51)
[2018-07-04 13:06] VITALS: BP 96/72
== END 2018-07-04 13:30 | DRG 466 ==
LOC: AA 17:00 → SSU 23:19
PROVIDERS: ADMIT Orthopaedic Surgery Adult Reconstructive Orthopaedic Surgery; ATTEND Orthopaedic Surgery Adult Reconstructive Orthopaedic Surgery
PROC: 0SRS03A Replacement of Left Hip Joint, Femoral Surface with Ceramic Synthetic Substitute, Uncemented, Open Approach (ICD-10-PCS; 2018-06-29)
PROC: 0SPS0JZ Removal of Synthetic Substitute from Left Hip Joint, Femoral Surface, Open Approach (ICD-10-PCS; 2018-06-29)
PROC: 0QS704Z Reposition Left Upper Femur with Internal Fixation Device, Open Approach (ICD-10-PCS; principal; 2018-06-29 14:00)
PROC: 30233N1 Transfusion of Nonautologous Red Blood Cells into Peripheral Vein, Percutaneous Approach (ICD-10-PCS; 2018-07-01)
DX: T84.031A Mechanical loosening of internal left hip prosthetic joint, initial encounter (principal); S72.092A Other fracture of head and neck of left femur, initial encounter for closed fracture; D62 Acute posthemorrhagic anemia; M97.02XA Periprosthetic fracture around internal prosthetic left hip joint, initial encounter; J44.9 Chronic obstructive pulmonary disease, unspecified; R00.0 Tachycardia, unspecified; M81.0 Age-related osteoporosis without current pathological fracture; M85.88 Other specified disorders of bone density and structure, other site; R33.9 Retention of urine, unspecified; N35.92 Unspecified urethral stricture, female; F32.9 Major depressive disorder, single episode, unspecified; B96.20 Unspecified Escherichia coli [E. coli] as the cause of diseases classified elsewhere; Z85.118 Personal history of other malignant neoplasm of bronchus and lung; Z90.2 Acquired absence of lung [part of]; Z80.1 Family history of malignant neoplasm of trachea, bronchus and lung; Z80.7 Family history of other malignant neoplasms of lymphoid, hematopoietic and related tissues; Z74.09 Other reduced mobility; Z87.891 Personal history of nicotine dependence; Z72.89 Other problems related to lifestyle; Y79.2 Prosthetic and other implants, materials and accessory orthopedic devices associated with adverse incidents; Y92.9 Unspecified place or not applicable; Z79.01 Long term (current) use of anticoagulants; R29.6 Repeated falls
CPT/HCPCS: 36415; 72170; 76001; 76770; 80048; 81003; 81015; 85014; 85018; 85025; 85049; 86850; 86900; 86901; 86922; 87086; 88300; 94640; A9270-GY; C1776; G8978-GP-CM; G8979-GP-CI; G8987-GO-CM; G8988-GO-CJ; J0690; J1650; J2250; J2270; J3010; P9040

== ENCOUNTER 2019-09-20 09:44 | Emergency (ER) | payer MEDICARE, BC | END 2019-09-20 10:00 | disposition left against medical advice (07) | LOC: UCEAST 09:44 | DX: Z53.21 Procedure and treatment not carried out due to patient leaving prior to being seen by health care provider (principal) ==